=== PATIENT | female | born 1970 | race Caucasian/White ===

== ENCOUNTER 2020-02-15 20:50 | Inpatient (IN) ==
[2020-02-15] MEDS ORDERED: KETOROLAC TROMETHAMINE 15 MG/ML VIAL IV STA (22:01)
[2020-02-15] MEDS ORDERED: SODIUM CHLORIDE 0.9% 1000ML 1,000 ML IV ONE (22:01)
[2020-02-15 22:48] LABS: Appearance Urine Cloudy (Clear); Bacteria Urine Automated Negative (Negative); Bilirubin Urine Negative (Negative); Blood Urine 3+ (Negative); Color Urine Orange; Epithelial Cell Urine Auto >30 /lpf (0-5); Glucose Urine UA 3+ (Negative); Ketones Urine Negative (Negative); Leukocyte Esterase Urine Trace (Negative); Nitrite Urine Negative (Negative); Protein Urine 1+ (Negative); RBC Urine Automated >30 /hpf (0-4); Specific Gravity Urine 1.022 (1.000-1.030); Urobilinogen Urine Negative (Negative); pH Urine 6.5 (4.5-7.5)
[2020-02-15 22:51] LABS: Basophils # (auto) 0.05 K/uL (0-0.2); Basophils % (auto) 0.6 %; Eosinophils # (auto) 0.07 K/uL (0-0.5); Eosinophils % (auto) 0.8 %; Hematocrit (blood only) 41.1 % (37-47); Hemoglobin 13.3 g/dL (12.0-16.0); Immature Granulocytes # (auto) 0.04 K/uL (0.00-0.02); Immature Granulocytes % (auto) 0.5 %; Lymphocytes # (auto) 1.41 K/uL (1.2-3.4); Lymphocytes % (auto) 16.6 %; Mean Corpuscular Hemoglobin 29.2 pg (25-34); Mean Corpuscular Hgb Conc 32.4 g/dL (32-36); Mean Corpuscular Volume 90.3 fL (80-100); Mean Platelet Volume 12.2 fL (7.4-10.4); Monocytes # (auto) 0.43 K/uL (0.11-0.59); Monocytes % (auto) 5.1 %; Neutrophils # (auto) 6.51 K/uL (1.4-6.5); Neutrophils % (auto) 76.4 %; Nucleated RBC # (auto) 0.02 K/uL (0-0); Nucleated RBC % (auto) 0.2 %; Platelet Count 188 K/uL (130-400); RDW Coefficient of Variation 14.2 % (11.5-14.5); Red Blood Count 4.55 M/uL (4.2-5.4); White Blood Count 8.51 K/uL (4.8-10.8)
[2020-02-15 22:52] LABS: Pregnancy Test, Urine Negative (Negative)
[2020-02-15 23:14] LABS: Alanine Aminotransferase 28 U/L (12-78); Albumin Globulin Ratio 0.9 (0.9-2); Albumin Level 3.9 gm/dl (3.4-5.0); Alkaline Phosphatase 54 U/L (45-117); Aspartate Aminotransferase 12 U/L (15-37); BUN Creatinine Ratio 24.1 (10-20); Bilirubin,Total 0.2 mg/dl (0.2-1); Blood Urea Nitrogen 25 mg/dl (7-18); Calcium 9.7 mg/dl (8.5-10.1); Carbon Dioxide 20 mmol/L (21-32); Chloride 103 mmol/L (98-107); Est GFR (African American) 72.2; Est GFR (Non-African American) 62.3; Globulin 4.2 gm/dl (2.5-4.0); Glucose 329 mg/dl (70-99); Lipase 218 U/L (73-393); Potassium 4.1 mmol/L (3.5-5.1); Sodium 133 mmol/L (136-145); Total Protein 8.1 gm/dl (6.4-8.2)
[2020-02-15 23:24] LABS: Beta-Hydroxybutyrate 1.76 mg/dl (0.2-2.81)
[2020-02-16] MEDS ORDERED: POLYETHYLENE (MIRALAX) 17 GM PACK PO PRN (03:16)
[2020-02-16] MEDS ORDERED: HYDROmorphone INJ 0.5 MG/0.5 ML SYR IV PRN (03:22)
[2020-02-16] MEDS ORDERED: ACETAMINOPHEN 325 MG TAB PO PRN (03:22)
[2020-02-16] MEDS ORDERED: PATIENT'S HEIGHT AND/OR WEIGHT NEEDED SCH (03:30)
[2020-02-16] MEDS ORDERED: CARBOHYDRATES FOR HYPOGLYCEMIA PO PRN (03:30)
[2020-02-16] MEDS ORDERED: GLUCOSE 10 TABS/TUBE PO PRN (03:30)
[2020-02-16] MEDS ORDERED: GLUCOSE 40% GEL 15 GM TUBE PO PRN (03:30)
[2020-02-16] MEDS ORDERED: GLUCAGON FOR INJ 1 MG VIAL SQ PRN (03:30)
[2020-02-16] MEDS ORDERED: DEXTROSE 50% 50 ML SYRINGE IV PRN (03:30)
[2020-02-16] MEDS ORDERED: Nursing to Pharmacy Communication ONE ×3 (03:41→15:20)
[2020-02-16] MEDS: SODIUM CHLORIDE 0.9% 1000ML 1,000 ML IV SCH ×3 (03:51→20:11)
[2020-02-16] MEDS ORDERED: cloNIDine HCL 0.1 MG TAB PO PRN (03:53)
[2020-02-16] MEDS: cefTRIAXone SODIUM 1,000 MG in DEXTROSE 5% 50 ML IV SCH (03:58)
--- NOTE | 2020-02-16 05:00 | History and Physical Report ---
DATE OF ADMISSION: 02/16/2020 CHIEF COMPLAINT: Right flank and groin pain. HISTORY OF PRESENT ILLNESS: This is a 49-year-old female with past medical history significant for muscular dystrophy, wheelchair bound, hyperlipidemia, diabetes, history of palpitations, history of kidney stones, anxiety, who presents with right flank pain. The pain started yesterday, but after dinnertime it got worse, and had some blood clots in the urine, which prompted her to come to the ER. She is also having lately some low-grade temperatures. Denies any nausea, vomiting. No cough, no chest pain, no shortness of breath, no headache, no blurred vision, no earache. Has some runny nose from allergies. No sore throat, no difficulty swallowing. No diarrhea or constipation. Currently, resting comfortable and hemodynamically stable. ALLERGIES: METFORMIN AND SULFA ANTIBIOTICS. PAST MEDICAL HISTORY: As mentioned above. PAST SURGICAL HISTORY: Colonoscopy, lithotripsy, muscle biopsy, spinal fusion surgery, upper endoscopy. MEDICATIONS: The patient is on amitriptyline 10 mg p.o. daily, atorvastatin 10 mg p.o. daily, cetirizine 10 mg p.o. daily, dicyclomine 10 mg p.o. a.c. and at bedtime, Lomotil 1 tablet p.o. q.i.d. p.r.n., fenofibrate 160 mg p.o. daily, Flonase 2 sprays intranasally daily, glipizide 5 mg p.o. b.i.d., Vitron-C 1 tablet p.o. b.i.d., lisinopril 5 mg p.o. daily, omega fish oil 1 capsule daily, MiraLax 17 g p.o. daily p.r.n., Januvia 100 mg p.o. daily. FAMILY HISTORY: Significant for father had cancer, heart disorder, hypertension; mother has hypertension, heart disorder, endocrine disorder. SOCIAL HISTORY: No smoking. Alcohol occasionally. No drug use. REVIEW OF SYSTEMS: As per HPI. Rest of the review of systems negative. PHYSICAL EXAMINATION: GENERAL: The patient is of moderate build, not in acute distress. VITAL SIGNS: Temperature 37.1, pulse 114, respiratory rate 18, blood pressure 171/99, and oxygen 96% on room air. HEENT: No pallor, no icterus. Pupils equal, round, reactive to light. NECK: Supple. No neck masses. CARDIOVASCULAR: S1, S2 heard. Tachycardia. No murmurs. RESPIRATORY SYSTEM: Normal AP diameter. No accessory muscle use. No wheezing. ABDOMEN: Soft, bowel sounds present. Mild right lower quadrant tenderness. No guarding, no rigidity. No distention. CENTRAL NERVOUS SYSTEM: Alert and oriented x3. Obeys simple commands. EXTREMITIES: No edema, no erythema. LABORATORY DATA: WBC 8.5, hemoglobin 13.3, hematocrit 41.3, platelets 188. Sodium 133, potassium 4.1, chloride 103, bicarbonate 20, BUN 25, creatinine 1.05, serum glucose 329, calcium 9.7, total bilirubin 0.2, AST 12, ALT 28, alkaline phosphatase 54, lipase 218, beta hydroxybutyric acid 1.7. Urinalysis, positive for +3 blood, glucose, +2 leukocyte esterase. Urine test negative. IMAGING DATA: CT of abdomen and pelvis, preliminary report shows a 7 x 4 mm stone in the right distal ureter with moderate obstructive changes, bilateral nephrolithiasis, cholelithiasis, question of abnormal thickening in the anal region and perineum with fungating mass lesions and surrounding infiltration. ASSESSMENT AND PLAN: This is a 49-year-old female who presents with right flank pain and found to have kidney stone. 1. Right renal colic, a 7 x 4 mm stone in the right distal ureter with moderate hydronephrosis, bilateral nephrolithiasis, history of kidney stones in the past. Possible urinary tract infection. We will follow the cultures. Placed on IV Rocephin, IV fluids, n.p.o., IV Dilaudid p.r.n., IV Zofran p.r.n., and consult urology in a.m. for further recommendations. 2. Questionable fungating mass at the anal region. As per the ER physician, rectal exam was okay. We will follow the final CAT scan report and based on the results, we will consult GI. 3. Diabetes. Hold home p.o. medications. Placed on Lantus insulin sliding scale. Follow the blood sugars, follow HbA1c levels. 4. Muscular dystrophy, wheelchair bound, lives alone. Has caregivers. PT and OT prior to discharge. 5. Hyperlipidemia, on statin. 6. Hypertension. Continue lisinopril. 7. Deep vein thrombosis prophylaxis, sequential compression devices for now. DISPOSITION: Admit to medical floor. Expect to discharge home and follow with the family doctor. Level 1 full code. MTDD
--- NOTE | 2020-02-16 05:06 | Emergency Department Note ---
History of Present Illness General Chief complaint: Kidney Stone Stated complaint: KIDNEY STONE PAIN Time Seen by Provider: 02/15/20 21:39 Source: patient Mode of arrival: ambulatory Limitations: no limitations History of Present Illness Maximum Pain Intensity: 10 This patient is a 49-year-old female with past medical history of type 2 diabetes and muscular dystrophy who presents to the emergency department for ev aluation of right-sided flank pain. Patient states that symptoms started 2 days ago with some dark urine. She states that that night, she noticed some blood in her urine. She states that the blood then resolved for a period of time. She took a urinalysis to her primary care provider yesterday but has not heard back the results. She states that tonight, she noticed some blood clots in her urine and developed pain in the right side. She states pain is similar to pain she has had with kidney stones in the past. She rates her discomfort a 5-6/10 at this time. She states that her pain has actually improved significantly over the past few hours. She has taken Tylenol for pain. She does report a history of kidney stones and has had lithotripsy in the past. She reports some slight nausea but no vomiting. She denies any fevers or changes in bowel movements. Home Medications Home Medications Medication Instructions Recorded Confirmed Type Benafiber 1 packet PO DAILY 02/15/20 02/15/20 History amitriptyline 10 mg PO DAILY 02/15/20 02/15/20 History atorvastatin 10 mg PO DAILY 02/15/20 02/15/20 History cetirizine [Zyrtec] 10 mg PO DAILY 02/15/20 02/15/20 History dicyclomine 10 mg PO ACHS 02/15/20 02/15/20 History diphenoxylate-atropine [Lomotil] 1 tab PO QID PRN 02/15/20 02/15/20 History fenofibrate 160 mg PO DAILY 02/15/20 02/15/20 History fluticasone propionate 2 spray INTRANASAL DAILY 02/15/20 02/15/20 History glipizide 5 mg PO BID 02/15/20 02/15/20 History iron,carbonyl-vitamin C [Vitron-C] 1 tab PO BID 02/15/20 02/15/20 History lisinopril 5 mg PO DAILY 02/15/20 02/15/20 History omega 5-[id number]-zwd-fish oil [Fish Oil] 1 cap PO DAILY 02/15/20 02/15/20 History polyethylene glycol 3350 [Miralax] 17 g PO DAILY PRN 02/15/20 02/15/20 History sitagliptin [Januvia] 100 mg PO DAILY 02/15/20 02/15/20 History Allergies Allergy/AdvReac Type Severity Reaction Status Date / Time Sulfa (Sulfonamide Allergy Intermediate ITCHY Verified 02/15/20 21:51 Antibiotics) RASH, FLU-LIKE SYMPTOMS metformin AdvReac Intermediate MODERATELY Verified 02/15/20 21:51 SEVERE NAUSEA Past Med/Surg History Medical History Hypertension Muscular dystrophy Type 2 diabetes mellitus Social History Preferred Language: Guatemalan Communication Ability: Effective Design Engineering Technician Required: No Beliefs That Will Affect Care: None Current Living Situation: Alone Other Information That Helps Us Care for You: No Feels Safe at Home: Yes Safety Concerns: Feels Safe At This Time Smoking Status: Never smoker Do You Dip or Chew Tobacco: No ; Second Hand Exposure: No ; Tobacco Cessation Education Requested by Patient: No Hx Alcohol Use: No Hx Substance Use: No Review of Systems A total of 10 systems reviewed and were otherwise negative Physical Exam Vital Signs Vital Signs - 24 hr 02/15/20 20:54 02/15/20 23:30 Temperature 37.4 C Temperature Source Oral Pulse Rate 105 H Pulse Rate [Apical] 102 H Respiratory Rate 18 18 Respiratory Effort / Characteristics Non-Labored Respiratory Depth Normal Blood Pressure 168/94 H Blood Pressure [Right Arm] 167/102 H Blood Pressure Mean 118 Blood Pressure Mean [Right Arm] 123 Pulse Oximetry 96 98 Oxygen Delivery Method Room Air Room Air Sepsis Recent Fever Within 48 Hours No Sepsis Action Taken by Nursing No Action Required VITALS: Vitals are noted on the nurse's note and reviewed by myself. GENERAL: This is a 49-year-old female, in no acute distress, sitting up in her wheelchair. SKIN: The skin was without rashes. EARS: External auditory canals clear, tympanic membranes pearly stokes without erythema or effusion bilaterally. EYES: Pupils equal round and reactive to light and accommodation. No scleral icterus. MOUTH: Mucous membranes moist. Tonsils are not enlarged. Pharynx without erythema or exudate. NECK: Supple without nuchal rigidity. No lymphadenopathy. HEART: Regular rate and rhythm without murmurs gallops or rubs. LUNGS: Clear to auscultation bilaterally without wheezes, rales or rhonchi. No retractions or accessory muscle use. ABDOMEN: Positive bowel sounds x 4. Soft, mild tenderness to palpation in the right lower quadrant. No guarding or rebound tenderness. RECTAL/: There is an abnormal mass/protrusion from the vagina, possibly prolapse. Several small external hemorrhoids noted. No tenderness on digital rectal exam. No palpable masses. Small amount of light brown heme-negative stool. NEURO: Patient was alert and oriented to person place and time. Course Consultations Consultation #1: [facility]. Gar[facility] Hospitalist Administered Medications Sodium Chloride (Nss 1000ml) 1,000 mls @ 125 mls/hr IV .Q8H NICOLE Stop: 03/17/20 03:29 Last Admin: 02/16/20 03:51 Dose: 125 mls/hr Documented by: [id number] Ceftriaxone Sodium 1,000 mg/ (Dextrose) 50 mls @ 100 mls/hr IV Q24H NICOLE Stop: 02/21/20 03:59 Last Infusion: 02/16/20 04:28 Dose: 0 mls/hr Documented by: [id number] Admin: 02/16/20 03:58 Dose: 100 mls/hr Documented by: [id number] Insulin Aspart (Novolog Flexpen) 0 units SC Q6 NICOLE Stop: 03/17/20 05:59 Last Admin: 02/16/20 05:34 Dose: 1 units Documented by: [id number] Cosigned by: [id number] Discontinued Medications Sodium Chloride (Nss 1000ml) 1,000 mls @ 999 mls/hr IV .Q1H1M ONE Stop: 02/15/20 23:01 Last Infusion: 02/16/20 00:32 Dose: 0 mls/hr Documented by: [id number] Admin: 02/15/20 23:29 Dose: 999 mls/hr Documented by: [id number] Ketorolac Tromethamine (Toradol) 15 mg IV NOW STA Stop: 02/15/20 22:02 Last Admin: 02/15/20 23:29 Dose: 15 mg Documented by: [id number] Miscellaneous (Patient's Height And/Or Weight Needed) 1 ea N/A Q2H NICOLE Stop: 03/17/20 03:29 Last Admin: 02/16/20 04:41 Dose: Not Given Documented by: [id number] Medical Decision Making Differential Diagnosis Differential diagnosis includes renal calculus, pyelonephritis, musculoskeletal pain, ruptured AAA, aortic dissection, diverticulitis, perforated viscus, bowel obstruction, biliary pathology, pancreatitis, PE, pneumonia, pneumothorax, trauma, herpes zoster, malignancy, among others. Home Medications Current Medication List: was personally reviewed by me Laboratory Data Attestation: I reviewed the patient's lab results. Result diagrams: 02/15/20 22:42 02/15/20 22:42 Lab Results 02/15/20 02/15/20 02/15/20 Range/Units 22:30 22:30 22:42 WBC 8.51 (4.8-10.8) K/uL RBC 4.55 (4.2-5.4) M/uL Hgb 13.3 (12.0-16.0) g/dL Hct 41.1 (37-47) % MCV 90.3 (80-100) fL MCH 29.2 (25-34) pg MCHC 32.4 (32-36) g/dL RDW Std Deviation 47.0 H (36.4-46.3) fL RDW Coeff of Latesha 14.2 (11.5-14.5) % Plt Count 188 (130-400) K/uL MPV 12.2 H (7.4-10.4) fL Immature Gran % (Auto) 0.5 % Neut % (Auto) 76.4 % Lymph % (Auto) 16.6 % [place] % (Auto) 5.1 % Eos % (Auto) 0.8 % Baso % (Auto) 0.6 % Immature Gran # (Auto) 0.04 H (0.00-0.02) K/uL Neut # (Auto) 6.51 H (1.4-6.5) K/uL Lymph # (Auto) 1.41 (1.2-3.4) K/uL [place] # (Auto) 0.43 (0.11-0.59) K/uL Eos # (Auto) 0.07 (0-0.5) K/uL Baso # (Auto) 0.05 (0-0.2) K/uL Absolute Nucleated RBC 0.02 H (0-0) K/uL Nucleated RBC % (auto) 0.2 % Sodium (136-145) mmol/L Potassium (3.5-5.1) mmol/L Chloride (98-107) mmol/L Carbon Dioxide (21-32) mmol/L Anion Gap (3-11) BUN (7-18) mg/dl Creatinine (0.6-1.2) mg/dl Est Cr Clr Drug Dosing Est GFR ( Amer) Est GFR (Non-Af Amer) BUN/Creatinine Ratio (10-20) Glucose (70-99) mg/dl Calcium (8.5-10.1) mg/dl Total Bilirubin (0.2-1) mg/dl AST (15-37) U/L ALT (12-78) U/L Alkaline Phosphatase (45-117) U/L Total Protein (6.4-8.2) gm/dl Albumin (3.4-5.0) gm/dl Globulin (2.5-4.0) gm/dl Albumin/Globulin Ratio (0.9-2) Lipase (73-393) U/L Beta-Hydroxybutyric Acd (0.2-2.81) mg/dl Urine Color [place] Urine Appearance Cloudy A (Clear) Urine pH 6.5 (4.5-7.5) Ur Specific [place] 1.022 (1.000-1.030) Urine Protein 1+ H (Negative) Urine Glucose (UA) 3+ H (Negative) Urine Ketones Negative (Negative) Urine Blood 3+ H (Negative) Urine Nitrite Negative (Negative) Urine Bilirubin Negative (Negative) Urine Urobilinogen Negative (Negative) Ur Leukocyte Esterase Trace H (Negative) Urine WBC (Auto) 5-10 H (0-5) /hpf Urine RBC (Auto) >30 H (0-4) /hpf U Hyaline Cast (Auto) 1-5 (0-5) /lpf U Epithel Cells (Auto) >30 H (0-5) /lpf Urine Bacteria (Auto) Negative (Negative) Urine Test Negative (Negative) 02/15/20 Range/Units 22:42 WBC (4.8-10.8) K/uL RBC (4.2-5.4) M/uL Hgb (12.0-16.0) g/dL Hct (37-47) % MCV (80-100) fL MCH (25-34) pg MCHC (32-36) g/dL RDW Std Deviation (36.4-46.3) fL RDW Coeff of Latesha (11.5-14.5) % Plt Count (130-400) K/uL MPV (7.4-10.4) fL Immature Gran % (Auto) % Neut % (Auto) % Lymph % (Auto) % [place] % (Auto) % Eos % (Auto) % Baso % (Auto) % Immature Gran # (Auto) (0.00-0.02) K/uL Neut # (Auto) (1.4-6.5) K/uL Lymph # (Auto) (1.2-3.4) K/uL [place] # (Auto) (0.11-0.59) K/uL Eos # (Auto) (0-0.5) K/uL Baso # (Auto) (0-0.2) K/uL Absolute Nucleated RBC (0-0) K/uL Nucleated RBC % (auto) % Sodium 133 L (136-145) mmol/L Potassium 4.1 (3.5-5.1) mmol/L Chloride 103 (98-107) mmol/L Carbon Dioxide 20 L (21-32) mmol/L Anion Gap 10.0 (3-11) BUN 25 H (7-18) mg/dl Creatinine 1.05 (0.6-1.2) mg/dl Est Cr Clr Drug Dosing Not Reportable Est GFR ( Amer) 72.2 Est GFR (Non-Af Amer) 62.3 BUN/Creatinine Ratio 24.1 H (10-20) Glucose 329 H* (70-99) mg/dl Calcium 9.7 (8.5-10.1) mg/dl Total Bilirubin 0.2 (0.2-1) mg/dl AST 12 L (15-37) U/L ALT 28 (12-78) U/L Alkaline Phosphatase 54 (45-117) U/L Total Protein 8.1 (6.4-8.2) gm/dl Albumin 3.9 (3.4-5.0) gm/dl Globulin 4.2 H (2.5-4.0) gm/dl Albumin/Globulin Ratio 0.9 (0.9-2) Lipase 218 (73-393) U/L Beta-Hydroxybutyric Acd 1.76 (0.2-2.81) mg/dl Urine Color Urine Appearance (Clear) Urine pH (4.5-7.5) Ur Specific [place] (1.000-1.030) Urine Protein (Negative) Urine Glucose (UA) (Negative) Urine Ketones (Negative) Urine Blood (Negative) Urine Nitrite (Negative) Urine Bilirubin (Negative) Urine Urobilinogen (Negative) Ur Leukocyte Esterase (Negative) Urine WBC (Auto) (0-5) /hpf Urine RBC (Auto) (0-4) /hpf U Hyaline Cast (Auto) (0-5) /lpf U Epithel Cells (Auto) (0-5) /lpf Urine Bacteria (Auto) (Negative) Urine Test (Negative) Imaging Data Attestation: I personally reviewed and interpreted this imaging study as follows: Radiologist's Impression: CT ABDOMEN & PELVIS Without Contrast: 7 x 4 mm stone in the right distal ureter with a moderate obstructive changes. Bilateral nephrolithiasis. Cholelithiasis. Heterogeneous liver with geographic areas of fatty infiltration. No radiographic evidence of pancreatitis. No evidence of appendicitis, colitis or bowel obstruction Abnormal thickening in the anal region/perineum with fungating mass lesions and surrounding infiltration. Surgical changes related to the spine. Radiologist: Jarod Muse M.D. Blood Pressure Blood Pressure Findings: Elevated blood pressure Blood Pressure Disposition: further management by hospitalist ELLYN Carias Continuous equipment monitor phototypesetting: Order was placed for continuous equipment monitor phototypesetting. Patient was placed on the equipment monitor phototypesetting. Patient was noted to be in normal sinus rhythm at an initial rate of 105 bpm. The patient is a 49-year-old female who presents today complaining of right- sided flank pain. Labs revealed no leukocytosis or anemia. Kidney function within normal limits. Urinalysis positive for blood. Glucose elevated at 329. A CT scan of the abdomen/pelvis was performed and shows a right-sided ureteral stone. There was also an abnormal finding of a possible rectal/anal mass. On examination, this appears to be vaginal. The patient reports this has been ongoing for almost 10 years and this will certainly need to be evaluated by [facility]. I do feel the patient needs hospitalization for her kidney stone due to the size. She was agreeable with this. Case was discussed with the [facility]ist. Impression & Plan Calculus of right ureter Discharge Plan Visit Data *Final* Discharge Date/Time: 02/16/20 02:55 Chief Complaint: Kidney Stone Stated Complaint: KIDNEY STONE PAIN ED Provider: Richard Cummings ED Midlevel Provider: Anna oM Discharge Problem: Calculus of right ureter Patient Disposition: Admitted As Inpatient Discharge Instructions Interventions: ED Discharge Assessment Last Done: 02/16/20 02:55
[2020-02-16] MEDS: INSULIN ASPART 100 UNITS/ML 3 ML PEN SC SCH ×4 (05:34→20:56)
--- NOTE | 2020-02-16 06:53 | CT Scan Report ---
CT abd pelvis wo con CT DOSE: 1288.88 mGy.cm HISTORY: Flank pain. Hematuria. right flank/abdominal pain, hematuria TECHNIQUE: Multiaxial CT images of the abdomen and pelvis were performed without contrast. A dose lo wering technique was utilized adhering to the principles of ALARA. COMPARISON STUDY: 11/22/2009 FINDINGS: Lung bases are grossly clear. Liver spleen and pancreas are unremarkable. Several small gal lstones. Left kidney demonstrates several nonobstructing left lower pole calcifications. Right kidney demonstrates moderate right hydroureteronephrosis. Multiple calcifications are present w ithin the right kidney collecting system as well as right renal pelvis. There is also a distal right ureteral calculus measuring 7 x 5 mm. Bowel pattern is nonobstructive. Bladder is midline. There is a moderate degree of rectal prolapse. IMPRESSION: 1. Obstructing calculus distal right ureter. 2. Multiple additional nonobstructing calcifications upper right renal collecting system. 3. Gallstones. 4. Several nonobstructing lower pole left renal calcifications. 5. Rectal prolapse. ACT 112: Negative or not required by law. The above report was generated using voice recognition software. It may contain grammatical, syntax or spelling errors. Electronically signed by: Kiran Sumner M.D. 02/16/2020 6:52 AM
[2020-02-16] MEDS ORDERED: INSULIN ASPART 100 UNITS/ML 3 ML PEN SC SCH (07:30)
[2020-02-16] MEDS ORDERED: NON-FORMULARY MEDICATION (Iron,Carbonyl-Vitamin C [Vitron-C] 1 TAB) PO SCH (09:00)
[2020-02-16] MEDS ORDERED: CETIRIZINE HCL 10 MG TABLET PO SCH ×2 (09:00→17:00)
--- NOTE | 2020-02-16 09:17 | Hospitalist Progress Note ---
Date of Service February 16, 2020 Assessment & Plan (1) Calculus of right ureter: This is a 49-year-old female who presents with right flank pain and found to have kidney stone. -Right renal colic, a 7 x 4 mm stone in the right distal ureter with moderate hydronephrosis, bilateral nephrolithiasis, history of kidney stones in the past. Possible urinary tract infection. We will follow the cultures. Placed on IV Rocephin, IV fluids, n.p.o., IV Dilaudid p.r.n., IV Zofran p.r.n., and consult urology pending History of Rectal prolapse -history of rectal prolapse as per patient -Questionable fungating mass at the anal region. As per the ER physician, rectal exam was okay. -Gastroenterology service consulted Type 2 diabetes mellitus without termination clerk current use of insulin -patient thinks outpatient HbA1c around 7.5 -does not take insulin at home, she is on Januvia and sitagliptin at home -Hold home p.o. medications. Placed on Lantus insulin sliding scale. Follow the blood sugars, follow HbA1c levels. Hyperlipidemia -on statin. Hypertension -Continue lisinopril. Muscular dystrophy - wheelchair bound, lives alone. Has caregivers. PT and OT prior to discharge. Deep vein thrombosis prophylaxis, sequential compression devices for now. DISPOSITION: Admit to medical floor. Expect to discharge home and follow with the family doctor. Level 1 full code. Admission and Anticipated Discharge Date Admission Date: February 16, 2020 Subjective no acute distress. no shortness of breath. breathing on room air. no acute chest pain. right flank pain improving so far on IV fluids. chronically non ambulatory, cannot raise legs on exam and this is chronic as per patient Review of Systems Review of Systems: All systems reviewed & are unremarkable except as noted in Subjective Physical Exam Constitutional: WD/WN, vitals as above Eyes: PERRL, conjunctivae normal, anicteric sclerae ENMT: external ear and nose normal, oropharynx normal Neck: normal visual inspection Respiratory: normal respiratory effort, lungs clear to auscultation Cardiovascular: Rate/Rhythm: regular rate Gastrointestinal (Abdomen): normal bowel sounds, soft, nontender, no hepatosplenomegaly Musculoskeletal: Head/Neck/Chest: normocephalic Neurologic: PERRL, EOMI, accommodation nl, no face palsy, no dysarthria Psychiatric: A+Ox3, euthymic affect chronically non ambulatory, cannot raise legs on exam and this is chronic as per patient Results & Data Results & Data ([facility]) Vital Signs (Past 12 Hours) Vital Signs Temp Pulse Pulse Resp BP Pulse Ox 02/16/20 07:54 37.1 C 106 H 18 142/93 H 96 02/16/20 03:02 37.1 C 114 H 18 171/99 H 96 02/15/20 23:30 102 H 18 167/102 H 98
[2020-02-16] MEDS: FLUTICASONE PROPIONATE NA SPR 16 GM BTL SCH (09:47)
[2020-02-16] MEDS: ATORVASTATIN 10 MG TAB PO SCH (09:49)
[2020-02-16] MEDS: FENOFIBRATE NANOCRYSTALLIZED 145 MG TABLET PO SCH (09:50)
[2020-02-16] MEDS: lisinopriL 5 MG TAB PO SCH (09:50)
--- NOTE | 2020-02-16 09:53 | XRay Report ---
XR KUB/Abdomen 1 view CLINICAL HISTORY: kidney stone nephrocalcinosis COMPARISON STUDY: No previous studies for comparison. FINDINGS: Limited study due to patient body habitus. Nonobstructive bowel pattern. Several calcifications overlying lower pole right kidney. Evaluation of soft tissue pelvis is nondiagnostic. IMPRESSION: Nondiagnostic study due to patient body habitus considerations. Calcifications right kid marcos. ACT 112: Negative or not required by law. The above report was generated using voice recognition software. It may contain grammatical, syntax or spelling errors. Electronically signed by: Kiran Sumner M.D. 02/16/2020 9:52 AM
[2020-02-16] MEDS: INSULIN GLARGINE SOLOSTAR 100 UNITS/ML 3 ML PEN SC SCH (09:56)
--- NOTE | 2020-02-16 11:07 | Urology Consultation ---
Date of Consultation February 16, 2020 Assessment & Plan (1) Calculus of right ureter: Assessment Nephrolithiasis with a distal right ureteral calculus Currently patient is afebrile and pain-free Discussed options including #1 trial of passage #2 ureteroscopy laser lithotripsy and stent #3 extracorporal shockwave lithotripsy Patient does understand that the ESWL would have to wait until at least next Thursday She would like to see if she can pass the stone especially since she did not tolerate a stent well in the past Since she is afebrile and not having pain we can give her a chance to see if she can pass the stone on her own She does know if she gets a fever or shaking chills she would need to have a stent placed emergently. History of Present Illness Attending Physician: Shashank Ely MD History of Present Illness Patient is a 49-year-old white female with past medical history significant for muscular dystrophy. She is currently wheelchair-bound. She developed a right flank pain yesterday and some hematuria. She came to the emergency room CT showed stones in the right kidney as well is a 6 mm right ureterovesical junction stone. Currently she said she is pain-free. She is had no fevers or chills nausea or vomiting. She has passed multiple stones throughout her life. She has had lithotripsy x1 years ago This was accompanied with a ureteral stent which she said she did not tolerate very well Allergies Allergy/AdvReac Type Severity Reaction Status Date / Time Sulfa (Sulfonamide Allergy Intermediate ITCHY Verified 02/15/20 21:51 Antibiotics) RASH, FLU-LIKE SYMPTOMS metformin AdvReac Intermediate MODERATELY Verified 02/15/20 21:51 SEVERE NAUSEA Home Medications Home Medications Medication Instructions Recorded Confirmed Type Benafiber 1 packet PO DAILY 02/15/20 02/15/20 History amitriptyline 10 mg PO DAILY 02/15/20 02/15/20 History atorvastatin 10 mg PO DAILY 02/15/20 02/15/20 History cetirizine [Zyrtec] 10 mg PO DAILY 02/15/20 02/15/20 History dicyclomine 10 mg PO ACHS 02/15/20 02/15/20 History diphenoxylate-atropine [Lomotil] 1 tab PO QID PRN 02/15/20 02/15/20 History fenofibrate 160 mg PO DAILY 02/15/20 02/15/20 History fluticasone propionate 2 spray INTRANASAL DAILY 02/15/20 02/15/20 History glipizide 5 mg PO BID 02/15/20 02/15/20 History iron,carbonyl-vitamin C [Vitron-C] 1 tab PO BID 02/15/20 02/15/20 History lisinopril 5 mg PO DAILY 02/15/20 02/15/20 History omega 5-odc-ntz-fish oil [Fish Oil] 1 cap PO DAILY 02/15/20 02/15/20 History polyethylene glycol 3350 [Miralax] 17 g PO DAILY PRN 02/15/20 02/15/20 History sitagliptin [Januvia] 100 mg PO DAILY 02/15/20 02/15/20 History Patient History Medical History Hypertension Muscular dystrophy Type 2 diabetes mellitus Social History Preferred Language: Thai Communication Ability: Effective Snack Bar Cook Required: No Beliefs That Will Affect Care: None marital status: Single Current Living Situation: Alone Other Information That Helps Us Care for You: No Feels Safe at Home: Yes Safety Concerns: Feels Safe At This Time Smoking Status: Never smoker Do You Dip or Chew Tobacco: No ; Second Hand Exposure: No ; Tobacco Cessation Education Requested by Patient: No Hx Alcohol Use: No Hx Substance Use: No Review of Systems Review of Systems: Review of systems reviewed from her admitting history and physical Physical Exam Constitutional: well nourished, + physical limitations (Patient wheelchair- bound secondary to muscular dystrophy) and healthy appearing Eyes: PERRL, conjunctivae normal, anicteric sclerae Respiratory: normal respiratory effort and able to speak in complete sentences Gastrointestinal (Abdomen): Inspection/Auscultation: abdomen normal to inspection and normal bowel sounds Musculoskeletal: Extremities: + limited ROM of extremities, + muscle atrophy and + leg foreshortened Skin: no rashes, warm and dry Results & Data Vital Signs (Past 12 Hours) Vital Signs Temp Pulse Pulse Resp BP Pulse Ox 02/16/20 07:54 37.1 C 106 H 18 142/93 H 96 02/16/20 03:02 37.1 C 114 H 18 171/99 H 96 02/15/20 23:30 102 H 18 167/102 H 98 PG Care Time/CCT Total # of Minutes Spent Total Time Spent with Patient: Total time spent is greater than 50% in coordination of care (as documented) at patient's floor/unit and/or counseling patient: Coding Level of Care Code 39764 Inpt Consult Level 3 Diagnoses Calculus of right ureter N20.1
--- NOTE | 2020-02-16 13:15 | XRay Report ---
XR KUB/Abdomen 1 view CLINICAL HISTORY: stones nephrocalcinosis COMPARISON STUDY: 02/15/2019 FINDINGS: Unchanged calcifications overlying the right kidney. Improved visibility of the soft tissue pelvis. Several faint calcifications are present but this is considered to be of limited diagnostic utility. The possibility of a calculus of the distal right ureter is raised pelvis may also represent bowel content. IMPRESSION: 1. Slightly improved visibility with unchanged right renal nephrocalcinosis. 2. Fecal material versus low density calcification distal right ureter ACT 112: Negative or not required by law. The above report was generated using voice recognition software. It may contain grammatical, syntax or spelling errors. Electronically signed by: Kiran Sumner M.D. 02/16/2020 1:13 PM
[2020-02-16] MEDS ORDERED: AMITRIPTYLINE HCL 10 MG TAB PO SCH (21:00)
[2020-02-17] MEDS: cefTRIAXone SODIUM 1,000 MG in DEXTROSE 5% 50 ML IV SCH (04:22)
[2020-02-17] MEDS: SODIUM CHLORIDE 0.9% 1000ML 1,000 ML IV SCH (04:22)
[2020-02-17 06:23] LABS: Basophils # (auto) 0.04 K/uL (0-0.2); Basophils % (auto) 0.6 %; Eosinophils # (auto) 0.24 K/uL (0-0.5); Eosinophils % (auto) 3.5 %; Hematocrit (blood only) 33.6 % (37-47); Hemoglobin 10.8 g/dL (12.0-16.0); Immature Granulocytes # (auto) 0.01 K/uL (0.00-0.02); Immature Granulocytes % (auto) 0.1 %; Lymphocytes # (auto) 2.66 K/uL (1.2-3.4); Lymphocytes % (auto) 38.4 %; Mean Corpuscular Hemoglobin 29.1 pg (25-34); Mean Corpuscular Hgb Conc 32.1 g/dL (32-36); Mean Corpuscular Volume 90.6 fL (80-100); Mean Platelet Volume 11.6 fL (7.4-10.4); Monocytes # (auto) 0.47 K/uL (0.11-0.59); Monocytes % (auto) 6.8 %; Neutrophils # (auto) 3.51 K/uL (1.4-6.5); Neutrophils % (auto) 50.6 %; Platelet Count 156 K/uL (130-400); RDW Coefficient of Variation 14.3 % (11.5-14.5); RDW Standard Deviation 47.6 fL (36.4-46.3); Red Blood Count 3.71 M/uL (4.2-5.4); White Blood Count 6.93 K/uL (4.8-10.8)
[2020-02-17 06:55] LABS: Estimated Average Glucose 169 mg/dl; Hemoglobin A1C 7.5 % (4.5-5.6)
[2020-02-17 07:08] LABS: Alanine Aminotransferase 21 U/L (12-78); Albumin Globulin Ratio 0.9 (0.9-2); Albumin Level 3.1 gm/dl (3.4-5.0); Alkaline Phosphatase 33 U/L (45-117); Aspartate Aminotransferase 9 U/L (15-37); Bilirubin,Total 0.2 mg/dl (0.2-1); Blood Urea Nitrogen 12 mg/dl (7-18); Calcium 7.9 mg/dl (8.5-10.1); Carbon Dioxide 22 mmol/L (21-32); Chloride 113 mmol/L (98-107); Creatinine Clr Calc Pharmacy 360.1 ml/min; Est GFR (African American) > 150.0; Est GFR (Non-African American) > 150.0; Globulin 3.4 gm/dl (2.5-4.0); Glucose 129 mg/dl (70-99); Potassium 3.5 mmol/L (3.5-5.1); Sodium 141 mmol/L (136-145); Total Protein 6.5 gm/dl (6.4-8.2)
[2020-02-17] MEDS ORDERED: POTASSIUM CHLORIDE / WTR 10 MEQ/100 ML PLCT IV ONE (07:10)
[2020-02-17] MEDS ORDERED: POTASSIUM CHLORIDE 20 MEQ TABCR PO STA (07:10)
[2020-02-17] MEDS ORDERED: KETOROLAC TROMETHAMINE 15 MG/ML VIAL IV ONE (07:44)
[2020-02-17] MEDS ORDERED: OXYCODONE HCL IR 5 MG TAB (IMMEDIATE RELEASE) PO PRN (08:44)
[2020-02-17] MEDS ORDERED: HYDROmorphone INJ 0.5 MG/0.5 ML SYR IV PRN (08:44)
[2020-02-17] MEDS ORDERED: ACETAMINOPHEN 325 MG TAB PO PRN (08:44)
[2020-02-17] MEDS ORDERED: KETOROLAC TROMETHAMINE 15 MG/ML VIAL IV PRN (08:45)
[2020-02-17] MEDS: FLUTICASONE PROPIONATE NA SPR 16 GM BTL SCH (08:54)
[2020-02-17] MEDS: ATORVASTATIN 10 MG TAB PO SCH (08:56)
[2020-02-17] MEDS: lisinopriL 5 MG TAB PO SCH (08:56)
--- NOTE | 2020-02-17 08:56 | Urology Progress Note ---
Date of Service February 17, 2020 Assessment & Plan (1) Calculus of right ureter: Right ureteral calculus, right renal calculi Currently minimally symptomatic We have discussed options of intervention today in the form of cystoscopy and stent placement versus delayed intervention as an outpatient for definitive stone treatmenttreating both ureteral and renal stones Realistically, she will likely require several procedures given the stone burden within the right kidney She greatly prefers the outpatient option I think it is reasonable to discharge her home this morning if she remains comfortable We will arrange for outpatient definitive therapy Subjective Was pain-free throughout the day yesterday She does have some discomfort in the right lower quadrant today Onset of the pain this morning came with shifting positions She has not yet seen a stone pass She reports the pain she is currently experiencing is extremely tolerable Review of Systems Review of Systems: All systems reviewed & are unremarkable except as noted in HPI & below Physical Exam Physical Exam: AFVSS No apparent distresscomfortable appearing Short stature No respiratory distress Non-tachycardic Abdomen soft No significant CVA tenderness No suprapubic tenderness Results & Data Vital Signs (Past 12 Hours) Vital Signs Temp Pulse Resp BP Pulse Ox 02/17/20 07:18 37.2 C 78 18 134/84 96 02/16/20 23:10 36.8 C 93 H 16 123/83 97 PG Care Time/CCT Total # of Minutes Spent Total Time Spent with Patient: Total time spent is greater than 50% in coordination of care (as documented) at patient's floor/unit and/or counseling patient: Coding Level of Care Code 53698 Subseq Hosp Care Lvl 2 Diagnoses Calculus of right ureter N20.1
[2020-02-17] MEDS: FENOFIBRATE NANOCRYSTALLIZED 145 MG TABLET PO SCH (08:58)
[2020-02-17] MEDS: INSULIN GLARGINE SOLOSTAR 100 UNITS/ML 3 ML PEN SC SCH (08:59)
[2020-02-17] MEDS: INSULIN ASPART 100 UNITS/ML 3 ML PEN SC SCH ×2 (09:01→13:26)
--- NOTE | 2020-02-17 12:01 | Hospitalist Progress Note ---
Date of Service February 17, 2020 Assessment & Plan (1) Calculus of right ureter: This is a 49-year-old female who presents with right flank pain and found to have kidney stone. -Right renal colic, a 7 x 4 mm stone in the right distal ureter with moderate hydronephrosis, bilateral nephrolithiasis, history of kidney stones in the past -empirically was given ceftriaxone but no evidence of urine infection on urine analysis -trial of IV fluids with inpatient pain medications were started -[facility] urology service was consulted and deferred urology procedure as outpatient and recommended hospital discharge. Patient agrees to hospital discharge after options discussed. Discharge to home under care of her mother on 02/17/2020 -Patient will need to confirm with [facility] urology clinic for definitive stone treatmenttreating both ureteral and renal stones ([address] [address] Thursday through , from 8:00 am to 5:00 pm Thursday, 8:00 am to 2:00 pm) -[facility] appointment line for primary care doctor appointment also called and informed that patient will need to be scheduled for post-hospital discharge follow up -upcoming scheduled appointments 03/12/2020 4:30 PM Provider [facility] Department Radiology [facility] -discharge prescription of acetaminophen 325 mg every 6 hours as needed for mild pain or fever; ibuprofren 200 mg every 6 hours as needed for moderate pain, oxycodone 5 mg every 6 hours as needed for severe pain (16 pills prescribed total) sent electronically to [facility] [address] [place] [phone] Rectal prolapse (chronic) -history of rectal prolapse as per patient -As per the ER physician, rectal exam was okay. -final admission CT abdomen impression read as rectal prolapse -no acute issues with bowel movements, no acute rectal discomforts, no further GI workup needed Hypertension -Continue lisinopril Type 2 diabetes mellitus without long-term current use of insulin -HbA1c is 7.5, does not take insulin at home, she is on Januvia and sitagliptin at home -sliding scale insulin given inpatient -patient may resume home oral diabetes medications on discharge Hyperlipidemia -on statin. Muscular dystrophy - wheelchair bound, lives alone. Has caregivers. Patient agrees to hospital discharge after options discussed. Discharge to home under care of her mother on 02/17/2020 Admission and Anticipated Discharge Date Admission Date: February 16, 2020 Subjective no vomiting. no abdomen pain. no chest pain. no shortness of breath. patient noted some more pedal edema and requested stopping of the IV fluids. tolerating flank discomforts but she feels uncomfortable in hospital bed [facility] urology service was consulted and deferred urology procedure as outpatient and recommended hospital discharge. Patient agrees to hospital discharge after options discussed. Discharge to home under care of her mother on 02/17/2020 Review of Systems Review of Systems: All systems reviewed & are unremarkable except as noted in Subjective Physical Exam Constitutional: WD/WN, vitals as above Eyes: PERRL, conjunctivae normal, anicteric sclerae ENMT: external ear and nose normal, oropharynx normal Neck: normal visual inspection Respiratory: normal respiratory effort, lungs clear to auscultation Cardiovascular: Rate/Rhythm: regular rate Gastrointestinal (Abdomen): normal bowel sounds, soft, nontender, no hepatosplenomegaly Musculoskeletal: Head/Neck/Chest: normocephalic Extremities: + foot abnormality (mild pedal edema bilaterally) Neurologic: PERRL, EOMI, accommodation nl, no face palsy, no dysarthria Psychiatric: A+Ox3, euthymic affect Results & Data Results & Data ([facility]) Vital Signs (Past 12 Hours) Vital Signs Temp Pulse Resp BP Pulse Ox 02/17/20 07:18 37.2 C 78 18 134/84 96
--- NOTE | 2020-02-17 12:11 | Discharge Summary ---
Date of Service February 17, 2020 Admission HPI Per Admitting Provider DATE OF ADMISSION: 02/16/2020 CHIEF COMPLAINT: Right flank and groin pain. HISTORY OF PRESENT ILLNESS: This is a 49-year-old female with past medical history significant for muscular dystrophy, wheelchair bound, hyperlipidemia, diabetes, history of palpitations, history of kidney stones, anxiety, who presents with right flank pain. The pain started yesterday, but after dinnertime it got worse, and had some blood clots in the urine, which prompted her to come to the ER. She is also having lately some low-grade temperatures. Denies any nausea, vomiting. No cough, no chest pain, no shortness of breath, no headache, no blurred vision, no earache. Has some runny nose from allergies. No sore throat, no difficulty swallowing. No diarrhea or constipation. Currently, resting comfortable and hemodynamically stable. Principal Diagnosis Calculus of right ureter Type 2 diabetes mellitus without long term care pharmacist current use of insulin Hypertension Rectal prolapse (chronic) Discharge Exam Constitutional WD/WN, vitals as above Eyes PERRL, conjunctivae normal, anicteric sclerae ENMT external ear and nose normal, oropharynx normal Neck normal visual inspection Respiratory normal respiratory effort, lungs clear to auscultation Cardiovascular Rate/Rhythm: regular rate Gastrointestinal (Abdomen) normal bowel sounds, soft, nontender, no hepatosplenomegaly Musculoskeletal Head/Neck/Chest: normocephalic Extremities: + foot abnormality (mild pedal edema bilaterally) Neurologic PERRL, EOMI, accommodation nl, no face palsy, no dysarthria Psychiatric A+Ox3, euthymic affect Discharge Data Allergies Allergy/AdvReac Type Severity Reaction Status Date / Time Sulfa (Sulfonamide Allergy Intermediate ITCHY Verified 02/15/20 21:51 Antibiotics) RASH, FLU-LIKE SYMPTOMS metformin AdvReac Intermediate MODERATELY Verified 02/15/20 21:51 SEVERE NAUSEA Consultations 02/16/20 01:46 ED Decision to Admit Stat 02/16/20 03:04 Consult Urology Routine Ordered Studies 02/15/20 22:01 CT abd pelvis wo con Urgent Hospital Course (1) Calculus of right ureter: This is a 49-year-old female who presents with right flank pain and found to have kidney stone. -Right renal colic, a 7 x 4 mm stone in the right distal ureter with moderate hydronephrosis, bilateral nephrolithiasis, history of kidney stones in the past -empirically was given ceftriaxone but no evidence of urine infection on urine analysis -trial of IV fluids with inpatient pain medications were started -[facility] urology service was consulted and deferred urology procedure as outpatient and recommended hospital discharge. Patient agrees to hospital discharge after options discussed. Discharge to home under care of her mother on 02/17/2020 -Patient will need to confirm with [facility] urology clinic for definitive stone treatmenttreating both ureteral and renal stones ([address] [place] [address] Thursday through , from 8:00 am to 5:00 pm Thursday, 8:00 am to 2:00 pm) -[facility] appointment line for primary care doctor appointment also called and informed that patient will need to be scheduled for post-hospital discharge follow up -upcoming scheduled appointments 03/12/2020 4:30 PM Provider THOMAS ECKLEY Department Radiology [facility] -discharge prescription of acetaminophen 325 mg every 6 hours as needed for mild pain or fever; ibuprofren 200 mg every 6 hours as needed for moderate pain, ox ycodone 5 mg every 6 hours as needed for severe pain (16 pills prescribed total) sent electronically to [facility] [address] [place] [phone] Rectal prolapse (chronic) -history of rectal prolapse as per patient -As per the ER physician, rectal exam was okay. -final admission CT abdomen impression read as rectal prolapse -no acute issues with bowel movements, no acute rectal discomforts, no further GI workup needed Hypertension -Continue lisinopril Type 2 diabetes mellitus without long term care pharmacist current use of insulin -HbA1c is 7.5, does not take insulin at home, she is on Januvia and sitagliptin at home -sliding scale insulin given inpatient -patient may resume home oral diabetes medications on discharge Hyperlipidemia -on statin. Muscular dystrophy - wheelchair bound, lives alone. Has caregivers. Patient agrees to hospital discharge after options discussed. Discharge to home under care of her mother on 02/17/2020 Total Time Total Time Spent Total Time Spent (In Minutes): 40 minutes Total Time Includes: Examination of the Patient, Discharge Planning, Medication Reconciliation and Communication With Other Providers Discharge Plan Discharge Items Patient Disposition: Home - Self-Care Reason For Visit: RT KIDNEY STONE Discharge Diagnosis: Calculus of right ureter Type 2 diabetes mellitus without care home current use of insulin Hypertension Rectal prolapse (chronic) Condition on Discharge: Good Activity: Resume your previous activity Non-emergency contact: Primary Care Provider and Urologist Call non-emergency contact if: you have any medication questions, your pain is concerning for you and you have a fever Follow-up/Referrals: Anayeli Tran MD [Primary Care Provider] - Diet: Carb Consistent or DM2 Addtl Attending Provider Instructions: Patient will need to confirm with [facility] urology clinic for definitive s tone treatmenttreating both ureteral and renal stones ([address] [address] Thursday through , from 8:00 am to 5:00 pm Thursday, 8:00 am to 2:00 pm) [facility] appointment line for primary care doctor appointment also called and informed that patient will need to be scheduled for post-hospital discharge follow up upcoming scheduled appointments 03/12/2020 4:30 PM Provider THOMAS ECKLEY Department Radiology [facility] discharge prescription of acetaminophen 325 mg every 6 hours as needed for mild pain or fever; ibuprofren 200 mg every 6 hours as needed for moderate pain, oxycodone 5 mg every 6 hours as needed for severe pain (16 pills prescribed total) sent electronically to [facility] [address] [place] [phone] Pending Studies at Discharge: No Stand-Alone Forms: My [facility], Smoking Cessation Medications and DC Order Prescriptions: New acetaminophen 325 mg tablet 325 mg PO Q6H PRN (Reason: mild pain or fever) 7 Days Qty: 28 RF: 0 ibuprofen 200 mg tablet 200 mg PO Q6H PRN (Reason: moderate pain) 7 Days Qty: 28 RF: 0 oxycodone 5 mg Tablet 5 mg PO Q6H PRN (Reason: severe pain) 4 Days Qty: 16 RF: 0 Continued cetirizine [Zyrtec] 10 mg Tablet 10 mg PO DAILY RF: 0 atorvastatin 10 mg tablet 10 mg PO DAILY RF: 0 diphenoxylate-atropine [Lomotil] 2.5-0.025 mg Tablet 1 tab PO QID PRN (Reason: Diarrhea) RF: 0 amitriptyline 10 mg tablet 10 mg PO DAILY RF: 0 lisinopril 5 mg tablet 5 mg PO DAILY RF: 0 polyethylene glycol 3350 [Miralax] 17 gram/dose Powder 17 g PO DAILY PRN (Reason: Constipation) RF: 0 fluticasone propionate 50 mcg/actuation spray,suspension 2 spray INTRANASAL DAILY RF: 0 dicyclomine 10 mg Capsule 10 mg PO ACHS RF: 0 glipizide 5 mg tablet 5 mg PO BID RF: 0 fenofibrate 160 mg tablet 160 mg PO DAILY RF: 0 Januvia 100 mg tablet 100 mg PO DAILY RF: 0 omega 7-hwh-hda-fish oil [Fish Oil] 1,000 mg (120 mg-180 mg) Capsule 1 cap PO DAILY RF: 0 Vitron-C 65 mg iron- 125 mg Tablet,Delayed Release (Dr/Ec) 1 tab PO BID RF: 0 Benafiber 1 packet PO DAILY RF: 0 Discharge Orders: Discharge Order (Routine); Ordered 02/17/20 Ordered By: Shashank Ely Admission Data Admit Date/Time: 02/16/20 02:15 Attending Provider: Shashank Ely Admit Provider: Angelo Garland Primary Care Provider: Anayeli Tran Other Providers: Goyo Reyes ; Angelo Garland
[2020-02-17 13:31] LABS: BUN Creatinine Ratio 28.4 (10-20); Calcium 8.2 mg/dl (8.5-10.1); Creatinine Clr Calc Pharmacy 110.2 ml/min; Est GFR (African American) 132.6; Est GFR (Non-African American) 114.4
== END 2020-02-17 14:32 | disposition home or self-care (01) | DRG 694 ==
LOC: ED 20:50 → 3N 02-16 02:15
DX: E11.9 Type 2 diabetes mellitus without complications; K62.3 Rectal prolapse; Z99.3 Dependence on wheelchair; G71.00 Muscular dystrophy, unspecified; E78.5 Hyperlipidemia, unspecified; Z88.2 Allergy status to sulfonamides; N20.2 Calculus of kidney with calculus of ureter

== ENCOUNTER 2025-01-15 18:43 | Inpatient (IN) ==
--- NOTE | 2025-01-15 19:10 | Emergency Department Note ---
History of Present Illness General Chief Complaint: Flank Pain Stated Complaint: FLANK PAIN BOTH SIDES, HAS CATHETER Time Seen by Provider: 01/15/25 18:52 History of Present Illness Provider Complaint: flank pain Onset (ago): 1 week(s) Location: R flank Maximum Pain Intensity: 10 Current Pain Intensity: 9 Quality: + stabbing and + sharp Relieved By: + nothing Exacerbated By: + nothing Context: + history of similar episodes (History of kidney stones); no foreign travel, no possible food poisoning, no sick contacts, no recent antibiotic use or no recent injury Associated Symptoms: + nausea; no vomiting, no diarrhea, no fever, no chills, no constipation, no hematemesis, no hematuria, no headache, no neck pain and no chest pain Home Medications Medication Instructions Recorded Confirmed Type amitriptyline 10 mg tablet 30 mg PO HS 02/15/20 12/09/24 History cetirizine 10 mg tablet (Zyrtec) 10 mg PO QPM 02/15/20 12/09/24 History fenofibrate 160 mg tablet 160 mg PO QAM 02/15/20 12/09/24 History fluticasone propionate 50 2 spray intranasal DAILY 02/15/20 12/09/24 History mcg/actuation nasal spray,suspension iron,carbonyl 65 mg-vitamin C 125 1 tab PO BID 02/15/20 12/09/24 History mg tablet,delayed release (Vitron-C) lisinopril 5 mg tablet 5 mg PO QAM 02/15/20 12/09/24 History omega 3-zqj-jse-fish oil 1,000 mg 1 cap PO BID 02/15/20 12/09/24 History (120 mg-180 mg) capsule (Fish Oil) polyethylene glycol 3350 17 17 g PO DAILY PRN Constipation 02/15/20 12/09/24 History gram/dose oral powder (Miralax) sitagliptin phosphate 100 mg 100 mg PO QAM 02/15/20 12/09/24 History tablet (Januvia) solifenacin 10 mg tablet (Vesicare) 10 mg PO HS 06/08/20 12/09/24 History atorvastatin 40 mg tablet 40 mg PO QAM 11/17/23 12/09/24 History guar gum 2 tbsp PO DAILY 11/17/23 12/09/24 History insulin aspart U-100 100 unit/mL See Rx Instructions .Route .COMPLEX 11/17/23 12/09/24 History subcutaneous solution (Novolog U-100 Insulin aspart) fluconazole 100 mg tablet 100 mg PO DAILY 5 days #5 tabs 11/23/23 12/09/24 Rx ondansetron HCl 4 mg tablet 4 mg PO Q8H PRN nausea and 01/11/25 Rx vomiting #10 tabs Allergies Allergy/AdvReac Type Severity Reaction Status Date / Time Sulfa (Sulfonamide Allergy Intermediate ITCHY Verified 01/28/24 13:24 Antibiotics) RASH, FLU-LIKE SYMPTOMS amoxicillin [From Augmentin] Allergy Rash Verified 01/28/24 13:24 clavulanic acid Allergy Rash Verified 01/28/24 13:24 [From Augmentin] metformin AdvReac Intermediate MODERATELY Verified 01/28/24 13:24 SEVERE NAUSEA Past Med/Surg History Problem List (Updated 01/15/25 @ 21:30 by Jose Mcdonald MD) Hyponatremia (Acute) Vaginal prolapse Right sided abdominal pain Calculus of right ureter (Acute) Nephrolithiasis Medical History (Updated 01/15/25 @ 21:30 by Jose Mcdonald MD) Kidney stones GERD (gastroesophageal reflux disease) Spinal muscular atrophy type III UNABLE TO AMBULATE/USES POWERED WHEELCHAIR/CHAIR LIFT USED AT HOME Irregular heart beat NO CARDS Hyperlipidemia Hypertension Type 2 diabetes mellitus Muscular dystrophy Surgical History History of anesthesia reaction WAS TOLD NEVER TO GET A PARALYTIC ANESTHETIC History of cystoscopy History of lithotripsy History of esophagogastroduodenoscopy (EGD) History of colonoscopy History of tooth extraction H/O spinal fusion LUMBAR Family History Uncle Diabetes Hypertension Father Hypertension Bladder cancer Other Breast cancer Liver cancer Ovarian cancer Social History Smoking Status: Never smoker Second Hand Exposure: No; Do You Dip or Chew Tobacco: No; Hx Alcohol Use: No Hx Substance Use: No Preferred Language: Malaysian Communication Ability: Effective Visual Impairment: No Limitations Blending Line Attendant Required: No Beliefs That Will Affect Care: None marital status: Single Current Living Situation: Alone Feels Safe at Home: Yes Assistive Devices: Glasses and Wheelchair Physical Exam 2 Vital Signs: Vital Signs - 24 hr 01/15/25 18:43 01/15/25 18:48 01/15/25 19:02 Temperature 36.1 C L 37.0 C Temperature Source Temporal Artery Sc an Oral Pulse Rate 94 H Pulse Rate [Right Finger] 111 H Pulse Rate from Sp O2 Sensor Respiratory Rate 18 18 Respiratory Effort / Characteristics Non-Labored Sponta neous Non-Labored Sponta neous Respiratory Depth Normal Normal Respiratory Patter n Regular Regular Blood Pressure 103/65 Blood Pressure [Ri ght Arm] 108/69 Blood Pressure Gladys n 77 Blood Pressure Gladys n [Right Arm] 82 Blood Pressure Pos ition [Right Arm] Sitting Pulse Oximetry 97 100 97 Oxygen Delivery Me thod Room Air Room Air Room Air Sepsis Recent Feve r Within 48 Hours No Sepsis New/Unexpla ined Change in Men tyra Status N/A Sepsis Action Take n by Nursing No Action Required 01/15/25 19:54 01/15/25 19:54 01/15/25 20:18 Temperature Temperature Source Pulse Rate 102 H 104 H Pulse Rate [Right Finger] 101 H Pulse Rate from Sp O2 Sensor 104 H Respiratory Rate 16 14 Respiratory Effort / Characteristics Non-Labored Sponta neous Respiratory Depth Normal Respiratory Patter n Regular Blood Pressure Blood Pressure [Ri ght Arm] 129/72 Blood Pressure Gladys n Blood Pressure Gladys n [Right Arm] 91 Blood Pressure Pos ition [Right Arm] Lying Pulse Oximetry 97 98 Oxygen Delivery Me thod Room Air Sepsis Recent Feve r Within 48 Hours Sepsis New/Unexpla ined Change in Men tyra Status Sepsis Action Take n by Nursing 01/15/25 20:24 01/15/25 20:30 01/15/25 20:42 Temperature Temperature Source Pulse Rate 106 H 103 H 100 H Pulse Rate [Right Finger] Pulse Rate from Sp O2 Sensor 106 H 103 H 100 H Respiratory Rate 19 17 Respiratory Effort / Characteristics Respiratory Depth Respiratory Patter n Blood Pressure Blood Pressure [Ri ght Arm] Blood Pressure Gladys n Blood Pressure Gladys n [Right Arm] Blood Pressure Pos ition [Right Arm] Pulse Oximetry 97 97 99 Oxygen Delivery Me thod Sepsis Recent Feve r Within 48 Hours Sepsis New/Unexpla ined Change in Men tyra Status Sepsis Action Take n by Nursing 01/15/25 21:03 01/15/25 21:10 01/15/25 21:10 Temperature Temperature Source Pulse Rate 103 H Pulse Rate [Right Finger] Pulse Rate from Sp O2 Sensor 104 H Respiratory Rate 18 Respiratory Effort / Characteristics Respiratory Depth Respiratory Patter n Blood Pressure 122/91 122/91 Blood Pressure [Ri ght Arm] Blood Pressure Gladys n 104 104 Blood Pressure Gladys n [Right Arm] Blood Pressure Pos ition [Right Arm] Pulse Oximetry 99 Oxygen Delivery Me thod Sepsis Recent Feve r Within 48 Hours Sepsis New/Unexpla ined Change in Men tyra Status Sepsis Action Take n by Nursing 01/15/25 21:15 Temperature Temperature Source Pulse Rate 104 H Pulse Rate [Right Finger] Pulse Rate from Sp O2 Sensor 104 H Respiratory Rate 12 Respiratory Effort / Characteristics Respiratory Depth Respiratory Patter n Blood Pressure Blood Pressure [Ri ght Arm] Blood Pressure Gladys n Blood Pressure Gladys n [Right Arm] Blood Pressure Pos ition [Right Arm] Pulse Oximetry 97 Oxygen Delivery Me thod Sepsis Recent Feve r Within 48 Hours Sepsis New/Unexpla ined Change in Men tyra Status Sepsis Action Take n by Nursing Physical Exam: Physical Exam GENERAL: Patient in wheelchair. HENT: Exam performed. - Head: Normocephalic and atraumatic. EYES: Conjunctivae and EOM are normal. Right eye exhibits no discharge. Left eye exhibits no discharge. No scleral icterus. NECK: Normal range of motion. Neck supple. No JVD present. CV: Normal rate, regular rhythm, normal heart sounds and intact distal pulses. There is no peripheral edema. Palpable radial pulses bue. PULM/CHEST: Effort normal and breath sounds normal. No respiratory distress. No stridor. no wheezes. no rales. ABD: The abdomen is soft. There is no tenderness. SKIN: Skin is warm and dry. He is not diaphoretic. PSYCH: normal mood and affect. Behavior is normal. Judgment and thought content normal. Course Course 1851: The patient was evaluated in room B7. A complete history and physical exam was performed Cardiac monitoring: An order was placed for continuous cardiac monitoring. The monitor shows a rate of 100 with sinus rhythm interpreted by me 2127: Stable. Labs show white count of 17. Sodium 117. Urinalysis is pending however does appear very cloudy. CT scan showed bladder wall thickening patient be treated empirically with Cipro. Patient will be admitted to the [facility] team discussed with Dr. Garland who accepts admission Administered Medications Sodium Chloride (Nss) 1,000 mls @ 125 mls/hr IV .Q8H NICOLE Stop: 01/16/25 20:44 Last Admin: 01/15/25 20:48 Dose: 125 mls/hr Documented By: JAHAIRA Discontinued Medications Sodium Chloride (Nss) 1,000 mls @ 999 mls/hr IV .Q1H1M ONE Stop: 01/15/25 19:54 Last Admin: 01/15/25 20:49 Dose: Not Given Documented By: JAHAIRA Sodium Chloride (Nss) 500 mls @ 999 mls/hr IV .Q31M ONE Stop: 01/15/25 19:38 Last Infusion: 01/15/25 20:50 Dose: Infused Documented By: Admin: 01/15/25 19:47 Dose: 999 mls/hr Documented By: PAUL Ketorolac Tromethamine (Ketorolac Tromethamine 15 Mg/Ml Vial) 15 mg IV NOW STA Stop: 01/15/25 18:55 Last Admin: 01/15/25 19:47 Dose: 15 mg Documented By: PAUL Ondansetron HCl (Ondansetron Inj 2 Mg/Ml 2 Ml Vial) 4 mg IV NOW STA Stop: 01/15/25 18:55 Last Admin: 01/15/25 19:47 Dose: 4 mg Documented By: PAUL Medical Decision Making Medical Records Attestation: I reviewed the patient's medical records. External medical records reviewed. Patient has CT of the abdomen pelvis done on January 10 which showed stable bilateral hydronephrosis left on the right with a few nonobstructing renal calculi but no ureteral calculi and possible strictures of the distal ureters. Urine culture from December 20, 2024 was negative. There is a nurse visit from January 12, 2025 from the urology nurse. A coud catheter was placed and was irrigated. Laboratory Data Attestation: I reviewed the patient's lab results. 01/15/25 19:35 01/15/25 19:35 Lab Results 01/15/25 01/15/25 Range/Units 19:35 20:37 WBC 17.01 H (4.8-10.8) K/ul RBC 3.91 L (4.20-5.40) M/uL Hgb 11.5 L (12.0-16.0) g/dl Hct 34.7 L (37.0-47.0) % MCV 88.7 (80.0-100.0) fL MCH 29.4 (25.0-34.0) pg MCHC 33.1 (32.0-36.0) g/dL RDW Std Deviation 43.6 (36.4-46.3) fL RDW Coeff of Latesha 13.2 (11.5-14.5) % Plt Count 476 H (130-400) K/uL MPV 9.6 (9.4-12.4) fL Immature Gran % (Auto) 0.7 % Neut % (Auto) 83.3 % Lymph % (Auto) 10.9 % Bell % (Auto) 4.1 % Eos % (Auto) 0.7 % Baso % (Auto) 0.3 % Neut # (Auto) 14.17 H (1.40-6.50) K/uL Lymph # (Auto) 1.85 (1.20-3.40) K/uL Bell # (Auto) 0.70 H (0.11-0.59) K/uL Eos # (Auto) 0.12 (0.00-0.50) K/uL Baso # (Auto) 0.05 (0.00-0.20) K/uL Immature Gran # (Auto) 0.12 (0.01-0.20) K/uL Sodium 117 L* (136-145) mmol/L Potassium 4.8 (3.5-5.1) mmol/L Chloride 88 L (98-107) mmol/L Carbon Dioxide 17 L (21-32) mmol/L Anion Gap 12 H (3-11) BUN 21 (6-23) mg/dl Creatinine 0.22 L (0.6-1.2) mg/dl Est Cr Clr Drug Dosing Not Reportable eGFR 135.76 BUN/Creatinine Ratio 95.5 H (10-20) Glucose 164 H (70-99(Fasting)) mg/dl Lactate 0.8 (0.4-2.0) mmol/L Calcium 8.4 L (8.6-10.3) mg/dl Total Bilirubin 0.6 (0.2-1.0) mg/dl Direct Bilirubin 0.3 H (0-0.2) mg/dl AST 45 H (13-39) U/L ALT 46 (7-52) U/L Alkaline Phosphatase 55 (34-104) U/L Total Protein 7.6 (6.0-8.3) gm/dl Albumin 3.7 (3.4-5.0) gm/dl Lipase 46 (11-82) U/L Imaging Data Attestation: I personally reviewed and interpreted this imaging study as follows: My Impression: Chest x-ray negative. No pneumonia. Radiologist's Impression: Abdomen/Pelvis CT 01/15/25 18:54 Exam(s): CT ABDOMEN + PELVIS Without Contrast EXAM: CT Abdomen and Pelvis Without Intravenous Contrast CLINICAL HISTORY: R flank pain. TECHNIQUE: Axial computed tomography images of the abdomen and pelvis without intravenous contrast. CTDI is 27.84 mGy and DLP is 1171.14 mGy-cm. Automated exposure control was utilized for the study. A dose lowering technique was utilized adhering to the principles of ALARA. COMPARISON: CT abdomen and pelvis without contrast dated 01/10/2025 FINDINGS: Artifacts: Scatter artifact likely related to patient's arm position. Lung bases: Unremarkable. No mass. No consolidation. ABDOMEN: Liver: Unremarkable. Gallbladder and bile ducts: Subcentimeter layering cholelithiasis involving the dependent gallbladder. No CT evidence for gallbladder wall thickening or biliary dilatation. Pancreas: Unremarkable. No ductal dilation. Spleen: Unremarkable. No splenomegaly. Adrenals: Unremarkable. No mass. Kidneys and ureters: Overall stable to minimally improved bilateral hydroureteronephrosis the left renal pelvis measuring 3 cm in diameter from 3.8 cm previously. The right renal pelvis measures 1.9 cm in AP diameter from 2.3 cm previously. The previously noted nephrolithiasis and the inferior pole the left kidney in the right renal pelvis are stable and in morphologic appearance and position. Similar distention of the arteries without ureteral stones. Stomach and bowel: No evidence for bowel obstruction. Evaluation of the bowel mucosa is slightly limited without contrast; however, no definite focal asymmetry suggested. PELVIS: Appendix: Not identified. No significant findings to suggest pathology. Bladder: A Perez catheter is noted in the bladder. The bladder is decompressed limiting evaluation with diffuse wall thickening and perivesicular fat stranding. No bladder stones. Reproductive: Unremarkable as visualized. ABDOMEN and PELVIS: Intraperitoneal space: Unremarkable. No free air. No significant fluid collection. Bones/joints: No acute osseous abnormality with stable long segment posterior fusion throughout the included thoracolumbar spine, extending to the S1 segment. No dislocation. Soft tissues: Unremarkable. Vasculature: Unremarkable. No abdominal aortic aneurysm. Lymph nodes: Unremarkable. No enlarged lymph nodes. IMPRESSION: 1. Overall stable to minimally improved bilateral hydroureteronephrosis the left renal pelvis measuring 3 cm in diameter from 3.8 cm previously. The right renal pelvis measures 1.9 cm in AP diameter from 2.3 cm previously. The previously noted nephrolithiasis and the inferior pole the left kidney in the right renal pelvis are stable and in morphologic appearance and position. Similar distention of the arteries without ureteral stones. 2. A Perez catheter is noted in the bladder. The bladder is decompressed limiting evaluation with diffuse wall thickening and perivesicular fat stranding. No bladder stones. Cystitis may be present. Please correlate with urinalysis findings. Electronically signed by: Romaine Henriquez MD 01/15/25 20:[address] [facility] Narrative 1852: The patient was evaluated in room B7. A complete history and physical exam was performed Cardiac monitoring: An order was placed for continuous cardiac monitoring. The monitor shows a rate of 100 with sinus rhythm interpreted by tn 2127: Stable. Labs show white count of 17. Sodium 117. Urinalysis is pending however does appear very cloudy. CT scan showed bladder wall thickening patient be treated empirically with Cipro. [facility] with [facility]. Garland who accepts admission Impression & Plan Hyponatremia Discharge Plan Visit Data Chief Complaint: Flank Pain Stated Complaint: FLANK PAIN BOTH SIDES, HAS CATHETER ED Provider: Jose Mcdonald Discharge Problem: Hyponatremia Patient Disposition: Admitted As Inpatient Forms Stand Alone Forms: My [facility] Prescriptions Prescriptions: No Action ondansetron HCl 4 mg tablet 4 mg PO Q8H PRN (Reason: nausea and vomiting) Qty: 10 0RF fluconazole 100 mg tablet 100 mg PO DAILY 5 Days Qty: 5 0RF cetirizine [Zyrtec] 10 mg Tablet 10 mg PO QPM amitriptyline 10 mg tablet 30 mg PO HS lisinopril 5 mg tablet 5 mg PO QAM polyethylene glycol 3350 [Miralax] 17 gram/dose Powder 17 g PO DAILY PRN (Reason: Constipation) fluticasone propionate 50 mcg/actuation spray,suspension 2 spray INTRANASAL DAILY fenofibrate 160 mg tablet 160 mg PO QAM Januvia 100 mg tablet 100 mg PO QAM omega 5-gas-vzq-fish oil [Fish Oil] 1,000 mg (120 mg-180 mg) Capsule 1 cap PO BID Vitron-C 65 mg iron- 125 mg Tablet,Delayed Release (Dr/Ec) 1 tab PO BID solifenacin [Vesicare] 10 mg Tablet 10 mg PO HS atorvastatin 40 mg tablet 40 mg PO QAM Benefiber (guar gum) Packet 2 tbsp PO DAILY Rx Instructions: mix into at least 8 oz of water or juice before administering insulin aspart U-100 [Novolog U-100 Insulin aspart] 100 unit/mL solution See Rx Instructions .ROUTE .COMPLEX Rx Instructions: Pt uses Omnipod, this is the insulin in pod. Referrals Referrals: Anayeli Tran MD [Primary Care Provider] -
[2025-01-15] MEDS: SODIUM CHLORIDE 0.9% 500 ML IV ONE (19:47)
[2025-01-15] MEDS: ONDANSETRON INJ 2 MG/ML 2 ML VIAL IV STA (19:47)
[2025-01-15] MEDS: KETOROLAC TROMETHAMINE 15 MG/ML VIAL IV STA (19:47)
[2025-01-15 19:56] LABS: Basophils # (auto) 0.05 K/uL (0.00-0.20); Basophils % (auto) 0.3 %; Eosinophils # (auto) 0.12 K/uL (0.00-0.50); Eosinophils % (auto) 0.7 %; Hematocrit (blood only) 34.7 % (37.0-47.0); Hemoglobin 11.5 g/dl (12.0-16.0); Immature Granulocytes # (auto) 0.12 K/uL (0.01-0.20); Immature Granulocytes % (auto) 0.7 %; Lymphocytes # (auto) 1.85 K/uL (1.20-3.40); Lymphocytes % (auto) 10.9 %; Mean Corpuscular Hemoglobin 29.4 pg (25.0-34.0); Mean Corpuscular Hgb Conc 33.1 g/dL (32.0-36.0); Mean Corpuscular Volume 88.7 fL (80.0-100.0); Mean Platelet Volume 9.6 fL (9.4-12.4); Monocytes % (auto) 4.1 %; Neutrophils # (auto) 14.17 K/uL (1.40-6.50); Neutrophils % (auto) 83.3 %; Platelet Count 476 K/uL (130-400); RDW Coefficient of Variation 13.2 % (11.5-14.5); RDW Standard Deviation 43.6 fL (36.4-46.3); Red Blood Count 3.91 M/uL (4.20-5.40); White Blood Count 17.01 K/ul (4.8-10.8)
[2025-01-15 20:33] LABS: Alanine Aminotransferase 46 U/L (7-52); Albumin Level 3.7 gm/dl (3.4-5.0); Alkaline Phosphatase 55 U/L (34-104); Anion Gap 12 (3-11); Aspartate Aminotransferase 45 U/L (13-39); BUN Creatinine Ratio 95.5 (10-20); Bilirubin Direct 0.3 mg/dl (0-0.2); Bilirubin,Total 0.6 mg/dl (0.2-1.0); Blood Urea Nitrogen 21 mg/dl (6-23); Calcium 8.4 mg/dl (8.6-10.3); Carbon Dioxide 17 mmol/L (21-32); Chloride 88 mmol/L (98-107); Glucose 164 mg/dl (70-99(Fasting)); Lipase 46 U/L (11-82); Potassium 4.8 mmol/L (3.5-5.1); Sodium 117 mmol/L (136-145); Total Protein 7.6 gm/dl (6.0-8.3)
[2025-01-15] MEDS: SODIUM CHLORIDE 0.9% 1,000 ML IV SCH (20:48)
[2025-01-15] MEDS: SODIUM CHLORIDE 0.9% 1,000 ML IV ONE (20:49)
--- NOTE | 2025-01-15 20:59 | CT Scan Report ---
Exam(s): CT ABDOMEN + PELVIS Without Contrast EXAM: CT Abdomen and Pelvis Without Intravenous Contrast CLINICAL HISTORY: R flank pain. TECHNIQUE: Axial computed tomography images of the abdomen and pelvis without intravenous contrast. CTDI is 27.84 mGy and DLP is 1171.14 mGy-cm. Automated exposure control was utilized for the study. A dose lowering technique was utilized adhering to the principles of ALARA. COMPARISON: CT abdomen and pelvis without contrast dated 01/10/2025 FINDINGS: Artifacts: Scatter artifact likely related to patient's arm position. Lung bases: Unremarkable. No mass. No consolidation. ABDOMEN: Liver: Unremarkable. Gallbladder and bile ducts: Subcentimeter layering cholelithiasis involving the dependent gallbladder. No CT evidence for gallbladder wall thickening or biliary dilatation. Pancreas: Unremarkable. No ductal dilation. Spleen: Unremarkable. No splenomegaly. Adrenals: Unremarkable. No mass. Kidneys and ureters: Overall stable to minimally improved bilateral hydroureteronephrosis the left renal pelvis measuring 3 cm in diameter from 3.8 cm previously. The right renal pelvis measures 1.9 cm in AP diameter from 2.3 cm previously. The previously noted nephrolithiasis and the inferior pole the left kidney in the right renal pelvis are stable and in morphologic appearance and position. Similar distention of the arteries without ureteral stones. Stomach and bowel: No evidence for bowel obstruction. Evaluation of the bowel mucosa is slightly limited without contrast; however, no definite focal asymmetry suggested. PELVIS: Appendix: Not identified. No significant findings to suggest pathology. Bladder: A Perez catheter is noted in the bladder. The bladder is decompressed limiting evaluation with diffuse wall thickening and perivesicular fat stranding. No bladder stones. Reproductive: Unremarkable as visualized. ABDOMEN and PELVIS: Intraperitoneal space: Unremarkable. No free air. No significant fluid collection. Bones/joints: No acute osseous abnormality with stable long segment posterior fusion throughout the included thoracolumbar spine, extending to the S1 segment. No dislocation. Soft tissues: Unremarkable. Vasculature: Unremarkable. No abdominal aortic aneurysm. Lymph nodes: Unremarkable. No enlarged lymph nodes. IMPRESSION: 1. Overall stable to minimally improved bilateral hydroureteronephrosis the left renal pelvis measuring 3 cm in diameter from 3.8 cm previously. The right renal pelvis measures 1.9 cm in AP diameter from 2.3 cm previously. The previously noted nephrolithiasis and the inferior pole the left kidney in the right renal pelvis are stable and in morphologic appearance and position. Similar distention of the arteries without ureteral stones. 2. A Perez catheter is noted in the bladder. The bladder is decompressed limiting evaluation with diffuse wall thickening and perivesicular fat stranding. No bladder stones. Cystitis may be present. Please correlate with urinalysis findings. Electronically signed by: Romaine Henriquez MD 01/15/25 20:58 PM
[2025-01-15] MEDS: CIPROFLOXACIN / D5W 400 MG/200 ML BAG IV STA (21:27)
[2025-01-15 21:35] LABS: Appearance Urine Turbid (Clear); Bacteria Urine Automated 4+ (None Seen); Bilirubin Urine Negative (Negative); Blood Urine 3+ (Negative); Cast Urine Automated >20 /lpf (0-2); Color Urine Yellow; Glucose Urine UA Negative (Negative); Ketones Urine Trace (Negative); Leukocyte Esterase Urine 3+ (Negative); Nitrite Urine Negative (Negative); Protein Urine 3+ (Negative); RBC Urine Automated >20 /hpf (0-2); Specific Gravity Urine 1.018 (1.000-1.030); Urobilinogen Urine Negative (Negative); WBC Urine Automated >50 /hpf (0-5)
--- NOTE | 2025-01-15 22:24 | XRay Report ---
Exam(s): XR CXR 1 VIEW EXAM: XR Chest, 1 View CLINICAL HISTORY: ro pneumonia. TECHNIQUE: Frontal view of the chest. COMPARISON: Chest 2 views dated 06/08/2020 FINDINGS: Lungs: Accounting for overlying soft tissues, no definite focal airspace consolidation. The pulmonary vasculature is unremarkable. Pleural space: Unremarkable. No pneumothorax. No large pleural effusion. Heart: Unremarkable. No cardiomegaly. Mediastinum: The mediastinal contours are stable and unremarkable. The trachea is midline. Bones/joints: Extensive surgical hardware throughout the thoracic spine with vertical rods and cerclage wires. No acute osseous abnormality. IMPRESSION: No acute cardiopulmonary process or significant alteration from the prior examination. Electronically signed by: Romaine Henriquez MD 01/15/25 22:23 PM
--- NOTE | 2025-01-15 23:58 | History & Physical Report ---
Date of Service January 15, 2025 Assessment & Plan (1) Hyponatremia: Plan: 54-year-old female with past medical history significant for muscular dystrophy wheelchair bound, hyperlipidemia,diabetes, history of palpitations, history of kidney stones, anxiety who lives alone at home and has caregivers and mother checks on her comes in because of severe back pain and found to have UTI and hyponatremia. Patient states last she was placed on Perez by her u rologist because of the hydronephrosis. Last few days she has significant back pain. Was nauseous. Not able to eat much. Denies any fever or chills. No headache, no runny nose or sore throat. No cough. No chest pain or shortness of breath. No abdominal pain. Hemodynamics are okay. Hyponatremia Sodium 117 Last few days not eating drinking much as per patient and has nausea Received fluids in the ER Will recheck BMP. recheck sodium was 118 and started on NS @50ml/hr. Am labs sodium 123 and stopped fluids. Follow BMP every 4 hours Will check serum osmolality, urine osmolality and urine sodium levels Slow correction Nephro consult for further recommendation Acute UTI Er gave Cipro Will continue with cefepime Will follow the cultures Back pain Possible from above Pain control Bilateral hydroureteronephrosis Recently placed Perez catheter by urology Will consult urology for any further recommendations Diabetes Hold Januvia Sliding scale Hypertension On lisinopril We will monitor Hyperlipidemia On fenofibrate and Lipitor Muscular dystrophy Wheelchair-bound DVT prophylaxis Lovenox Disposition Telemetry full code. History of Present Illness Chief Complaint: Back pain, UTI, hyponatremia Primary Care Provider: Anayeli Tran MD 54-year-old female with past medical history significant for muscular dystrophy wheelchair bound, hyperlipidemia,diabetes, history of palpitations, history of kidney stones, anxiety who lives alone at home and has caregivers and mother checks on her comes in because of severe back pain and found to have UTI and hyponatremia. Patient states last she was placed on Perez by her urologist because of the hydronephrosis. Last few days she has significant back pain. Was nauseous. Not able to eat much. Denies any fever or chills. No headache, no runny nose or sore throat. No cough. No chest pain or shortness of breath. No abdominal pain. Hemodynamics are okay. Past medical history. As mentioned above Past surgical history. Colonoscopy. Fragment kidney stone by shockwave. Deep muscle biopsy for diagnosis of spinal muscular dystrophy 1972 or . Spinal fusion 1984. Upper GI endoscopy. Social history. No smoking. Alcohol socially. No drug use. Family history. Father had bladder cancer. Heart disorder. Hypertension. Mother had heart disorder. Hypertension. Paternal aunt had breast cancer. Brother has hypertension. Allergies Allergy/AdvReac Type Severity Reaction Status Date / Time Sulfa (Sulfonamide Allergy Intermediate ITCHY Verified 01/28/24 13:24 Antibiotics) RASH, FLU-LIKE SYMPTOMS amoxicillin [From Augmentin] Allergy Rash Verified 01/28/24 13:24 clavulanic acid Allergy Rash Verified 01/28/24 13:24 [From Augmentin] metformin AdvReac Intermediate MODERATELY Verified 01/28/24 13:24 SEVERE NAUSEA Home Medications Medication Instructions Recorded Confirmed Type amitriptyline 10 mg tablet 30 mg PO HS 01/15/25 01/15/25 History atorvastatin 40 mg tablet 40 mg PO DAILY 01/15/25 01/15/25 History calcium 500 mg (as 1 tab PO DAILY 01/15/25 01/15/25 History carbonate)-vitamin D3 3.125 mcg (125 unit) tablet cetirizine 10 mg tablet 10 mg PO DAILY 01/15/25 01/15/25 History dicyclomine 10 mg capsule 10 mg PO ACHS PRN Abdominal Pain 01/15/25 01/15/25 History diphenoxylate-atropine 2.5 1 tab PO QID PRN dairrhea 01/15/25 01/15/25 History mg-0.025 mg tablet (Lomotil) fenofibrate 160 mg tablet 160 mg PO DAILY 01/15/25 01/15/25 History fluticasone propionate 50 2 spray intranasal DAILY 01/15/25 01/15/25 History mcg/actuation nasal spray,suspension iron,carbonyl 65 mg-vitamin C 125 1 tab PO BID 01/15/25 01/15/25 History mg tablet,delayed release (Vitron-C) lisinopril 5 mg tablet 5 mg PO DAILY 01/15/25 01/15/25 History omega 5-plp-vvi-fish oil 1,000 mg 1 cap PO DAILY 01/15/25 01/15/25 History (120 mg-180 mg) capsule (Fish Oil) polyethylene glycol 3350 17 gram 17 g PO DAILY 01/15/25 01/15/25 History oral powder packet (Miralax) sitagliptin phosphate 100 mg 100 mg PO DAILY 01/15/25 01/15/25 History tablet (Januvia) solifenacin 10 mg tablet (Vesicare) 10 mg PO DAILY 01/15/25 01/15/25 History wheat dextrin 3 gram/3.5 gram oral 1 packet PO DAILY 01/15/25 01/15/25 History powder packet (Benefiber Clear Sugar Free(dextrin)) Past Med/Surg History Problem List (Updated 01/15/25 @ 21:30 by Jose Mcdonald MD) Hyponatremia (Acute) Vaginal prolapse Right sided abdominal pain Calculus of right ureter (Acute) Nephrolithiasis Medical History (Updated 01/15/25 @ 21:30 by Jose Mcdonald MD) Kidney stones GERD (gastroesophageal reflux disease) Spinal muscular atrophy type III UNABLE TO AMBULATE/USES POWERED WHEELCHAIR/CHAIR LIFT USED AT HOME Irregular heart beat NO CARDS Hyperlipidemia Hypertension Type 2 diabetes mellitus Muscular dystrophy Surgical History History of anesthesia reaction WAS TOLD NEVER TO GET A PARALYTIC ANESTHETIC History of cystoscopy History of lithotripsy History of esophagogastroduodenoscopy (EGD) History of colonoscopy History of tooth extraction H/O spinal fusion LUMBAR Family History Uncle Diabetes Hypertension Father Hypertension Bladder cancer Other Breast cancer Liver cancer Ovarian cancer Social History Smoking Status: Never smoker Second Hand Exposure: No; Do You Dip or Chew Tobacco: No; Hx Alcohol Use: No Hx Substance Use: No Preferred Language: Panamanian Communication Ability: Effective Visual Impairment: No Limitations Fastener Technologist Required: No Beliefs That Will Affect Care: None marital status: Single Current Living Situation: Alone Feels Safe at Home: Yes Safety Concerns: Feels Safe At This Time Assistive Devices: Glasses, Mechanical Lift and Wheelchair Review of Systems Review of Systems: All systems reviewed & are unremarkable except as noted in HPI & below Physical Exam Physical Exam: General- Not in distress Head- atraumatic Eyes- PERRL. ENT- oropharynx clear Neck- supple, no JVD. Lungs- clear to auscultation no wheezing or crackles Heart- regular rhythm; no murmur, no gallop. Abdomen- normal bowel sounds, soft, nontender, no distension Extremities- mild pretibial edema, no erythema seen. Neuro- alert, oriented PERRL, no facial palsy; no dysarthria. Results & Data Results & Data Vital Signs (Past 12 Hours) Vital Signs Temp Pulse Pulse Resp BP BP Pulse Ox 01/15/25 23:28 98 H 16 112/55 L 96 01/15/25 22:12 104 H 17 98 01/15/25 22:00 113/70 01/15/25 22:00 113/70 01/15/25 22:00 101 H 18 97 01/15/25 21:30 105 H 97 01/15/25 21:30 120/72 01/15/25 21:30 120/72 01/15/25 21:21 104 H 98 01/15/25 21:15 104 H 12 97 01/15/25 21:10 122/91 01/15/25 21:10 122/91 01/15/25 21:03 103 H 18 99 01/15/25 20:42 100 H 99 01/15/25 20:30 103 H 17 97 01/15/25 20:24 106 H 19 97 01/15/25 20:18 104 H 14 98 01/15/25 20:08 99 H 16 90/67 L 97 01/15/25 19:54 102 H 01/15/25 19:54 101 H 16 129/72 97 01/15/25 19:02 37.0 C 111 H 18 108/69 97 01/15/25 18:48 36.1 C L 94 H 18 103/65 100 01/15/25 18:43 97 O2 Del Method 01/15/25 23:28 Room Air 01/15/25 22:12 01/15/25 22:00 01/15/25 22:00 01/15/25 22:00 01/15/25 21:30 01/15/25 21:30 01/15/25 21:30 01/15/25 21:21 01/15/25 21:15 01/15/25 21:10 01/15/25 21:10 01/15/25 21:03 01/15/25 20:42 01/15/25 20:30 01/15/25 20:24 01/15/25 20:18 01/15/25 20:08 01/15/25 19:54 01/15/25 19:54 Room Air 01/15/25 19:02 Room Air 01/15/25 18:48 Room Air 01/15/25 18:43 Room Air Diagnostic Findings Laboratory Results WBC 17.01 K/ul (4.8-10.8) H 01/15/25 19:35 RBC 3.91 M/uL (4.20-5.40) L 01/15/25 19:35 Hgb 11.5 g/dl (12.0-16.0) L 01/15/25 19:35 Hct 34.7 % (37.0-47.0) L 01/15/25 19:35 MCV 88.7 fL (80.0-100.0) 01/15/25 19:35 MCH 29.4 pg (25.0-34.0) 01/15/25 19:35 MCHC 33.1 g/dL (32.0-36.0) 01/15/25 19:35 RDW Std Deviation 43.6 fL (36.4-46.3) 01/15/25 19:35 RDW Coeff of Latesha 13.2 % (11.5-14.5) 01/15/25 19:35 Plt Count 476 K/uL (130-400) H 01/15/25 19:35 MPV 9.6 fL (9.4-12.4) 01/15/25 19:35 Immature Gran % (Auto) 0.7 % 01/15/25 19:35 Neut % (Auto) 83.3 % 01/15/25 19:35 Lymph % (Auto) 10.9 % 01/15/25 19:35 [place] % (Auto) 4.1 % 01/15/25 19:35 Eos % (Auto) 0.7 % 01/15/25 19:35 Baso % (Auto) 0.3 % 01/15/25 19:35 Neut # (Auto) 14.17 K/uL (1.40-6.50) H 01/15/25 19:35 Lymph # (Auto) 1.85 K/uL (1.20-3.40) 01/15/25 19:35 [place] # (Auto) 0.70 K/uL (0.11-0.59) H 01/15/25 19:35 Eos # (Auto) 0.12 K/uL (0.00-0.50) 01/15/25 19:35 Baso # (Auto) 0.05 K/uL (0.00-0.20) 01/15/25 19:35 Immature Gran # (Auto) 0.12 K/uL (0.01-0.20) 01/15/25 19:35 Sodium 117 mmol/L (136-145) L* 01/15/25 19:35 Potassium 4.8 mmol/L (3.5-5.1) 01/15/25 19:35 Chloride 88 mmol/L (98-107) L 01/15/25 19:35 Carbon Dioxide 17 mmol/L (21-32) L 01/15/25 19:35 Anion Gap 12 (3-11) H 01/15/25 19:35 BUN 21 mg/dl (6-23) 01/15/25 19:35 Creatinine 0.22 mg/dl (0.6-1.2) L 01/15/25 19:35 Est Cr Clr Drug Dosing Not Reportable 01/15/25 19:35 eGFR 135.76 01/15/25 19:35 BUN/Creatinine Ratio 95.5 (10-20) H 01/15/25 19:35 Glucose 164 mg/dl (70-99(Fasting)) H 01/15/25 19:35 Lactate 0.8 mmol/L (0.4-2.0) 01/15/25 20:37 Calcium 8.4 mg/dl (8.6-10.3) L 01/15/25 19:35 Total Bilirubin 0.6 mg/dl (0.2-1.0) 01/15/25 19:35 Direct Bilirubin 0.3 mg/dl (0-0.2) H 01/15/25 19:35 AST 45 U/L (13-39) H 01/15/25 19:35 ALT 46 U/L (7-52) 01/15/25 19:35 Alkaline Phosphatase 55 U/L (34-104) 01/15/25 19:35 Total Protein 7.6 gm/dl (6.0-8.3) 01/15/25 19:35 Albumin 3.7 gm/dl (3.4-5.0) 01/15/25 19:35 Lipase 46 U/L (11-82) 01/15/25 19:35 Urine Color Yellow 01/15/25 20:22 Urine Appearance Turbid (Clear) A 01/15/25 20: Urine pH 6.0 (4.5-7.5) 01/15/25 20:22 Ur Specific [place] 1.018 (1.000-1.030) 01/15/25 20:22 Urine Protein 3+ (Negative) H 01/15/25 20:22 Urine Glucose (UA) Negative (Negative) 01/15/25 20: Urine Ketones Trace (Negative) H 01/15/25 20: Urine Blood 3+ (Negative) H 01/15/25 20:22 Urine Nitrite Negative (Negative) 01/15/25 20: Urine Bilirubin Negative (Negative) 01/15/25 20: Urine Urobilinogen Negative (Negative) 01/15/25 20:22 Ur Leukocyte Esterase 3+ (Negative) H 01/15/25 20:22 Urine WBC (Auto) >50 /hpf (0-5) H 01/15/25 20:22 Urine RBC (Auto) >20 /hpf (0-2) H 01/15/25 20:22 U Hyaline Cast (Auto) >20 /lpf (0-2) H 01/15/25 20:22 U Epithel Cells (Auto) 6-10 /hpf (0-2) H 01/15/25 20:22 Urine Bacteria (Auto) 4+ (None Seen) H 01/15/25 20:22 Impressions Abdomen/Pelvis CT 01/15/25 18:54 Exam(s): CT ABDOMEN + PELVIS Without Contrast EXAM: CT Abdomen and Pelvis Without Intravenous Contrast CLINICAL HISTORY: R flank pain. TECHNIQUE: Axial computed tomography images of the abdomen and pelvis without intravenous contrast. CTDI is 27.84 mGy and DLP is 1171.14 mGy-cm. Automated exposure control was utilized for the study. A dose lowering technique was utilized adhering to the principles of ALARA. COMPARISON: CT abdomen and pelvis without contrast dated 01/10/2025 FINDINGS: Artifacts: Scatter artifact likely related to patient's arm position. Lung bases: Unremarkable. No mass. No consolidation. ABDOMEN: Liver: Unremarkable. Gallbladder and bile ducts: Subcentimeter layering cholelithiasis involving the dependent gallbladder. No CT evidence for gallbladder wall thickening or biliary dilatation. Pancreas: Unremarkable. No ductal dilation. Spleen: Unremarkable. No splenomegaly. Adrenals: Unremarkable. No mass. Kidneys and ureters: Overall stable to minimally improved bilateral hydroureteronephrosis the left renal pelvis measuring 3 cm in diameter from 3.8 cm previously. The right renal pelvis measures 1.9 cm in AP diameter from 2.3 cm previously. The previously noted nephrolithiasis and the inferior pole the left kidney in the right renal pelvis are stable and in morphologic appearance and position. Similar distention of the arteries without ureteral stones. Stomach and bowel: No evidence for bowel obstruction. Evaluation of the bowel mucosa is slightly limited without contrast; however, no definite focal asymmetry suggested. PELVIS: Appendix: Not identified. No significant findings to suggest pathology. Bladder: A Perez catheter is noted in the bladder. The bladder is decompressed limiting evaluation with diffuse wall thickening and perivesicular fat stranding. No bladder stones. Reproductive: Unremarkable as visualized. ABDOMEN and PELVIS: Intraperitoneal space: Unremarkable. No free air. No significant fluid collection. Bones/joints: No acute osseous abnormality with stable long segment posterior fusion throughout the included thoracolumbar spine, extending to the S1 segment. No dislocation. Soft tissues: Unremarkable. Vasculature: Unremarkable. No abdominal aortic aneurysm. Lymph nodes: Unremarkable. No enlarged lymph nodes. IMPRESSION: 1. Overall stable to minimally improved bilateral hydroureteronephrosis the left renal pelvis measuring 3 cm in diameter from 3.8 cm previously. The right renal pelvis measures 1.9 cm in AP diameter from 2.3 cm previously. The previously noted nephrolithiasis and the inferior pole the left kidney in the right renal pelvis are stable and in morphologic appearance and position. Similar distention of the arteries without ureteral stones. 2. A Perez catheter is noted in the bladder. The bladder is decompressed limiting evaluation with diffuse wall thickening and perivesicular fat stranding. No bladder stones. Cystitis may be present. Please correlate with urinalysis findings. Electronically signed by: Romaine Henriquez MD 01/15/25 20:58 PM Chest X-Ray 01/15/25 20:08 Exam(s): XR CXR 1 VIEW EXAM: XR Chest, 1 View CLINICAL HISTORY: ro pneumonia. TECHNIQUE: Frontal view of the chest. COMPARISON: Chest 2 views dated 06/08/2020 FINDINGS: Lungs: Accounting for overlying soft tissues, no definite focal airspace consolidation. The pulmonary vasculature is unremarkable. Pleural space: Unremarkable. No pneumothorax. No large pleural effusion. Heart: Unremarkable. No cardiomegaly. Mediastinum: The mediastinal contours are stable and unremarkable. The trachea is midline. Bones/joints: Extensive surgical hardware throughout the thoracic spine with vertical rods and cerclage wires. No acute osseous abnormality. IMPRESSION: No acute cardiopulmonary process or significant alteration from the prior examination. Electronically signed by: Romaine Henriquez MD 01/15/25 22:23 PM Code Status & VTE Plan VTE Prophylaxis Plan VTE Prophylaxis will be ordered: Yes
[2025-01-16] MEDS: HYDROmorphone INJ 0.5 MG/0.5 ML SYR IV STA (00:16)
[2025-01-16 00:35] LABS: BUN Creatinine Ratio 104.8 (10-20); Calcium 7.7 mg/dl (8.6-10.3); Creatinine Clr Calc Pharmacy 235.7 ml/min; Potassium 4.7 mmol/L (3.5-5.1)
[2025-01-16] MEDS: SODIUM CHLORIDE 0.9% 1,000 ML IV SCH (00:47)
[2025-01-16] MEDS ORDERED: CARBOHYDRATES FOR HYPOGLYCEMIA PO PRN (02:25)
[2025-01-16] MEDS ORDERED: GLUCOSE 40% GEL 15 GM TUBE PO PRN (02:25)
[2025-01-16] MEDS ORDERED: HYDROmorphone INJ 0.5 MG/0.5 ML SYR IV PRN (02:25)
[2025-01-16] MEDS ORDERED: NITROGLYCERIN SL 0.4 MG/TAB TAB SL PRN (02:25)
[2025-01-16] MEDS ORDERED: GLUCAGON FOR INJ 1 MG VIAL SQ PRN (02:25)
[2025-01-16] MEDS ORDERED: DEXTROSE 50% 50 ML SYRINGE IV PRN (02:25)
[2025-01-16] MEDS ORDERED: GLUCOSE 10 TAB/TUBE PO PRN (02:25)
[2025-01-16] MEDS: CEFEPIME 2000MG 2,000 MG/20 ML SYR IV SCH (02:54)
[2025-01-16 06:28] LABS: Basophils # (auto) 0.07 K/uL (0.00-0.20); Basophils % (auto) 0.4 %; Eosinophils # (auto) 0.28 K/uL (0.00-0.50); Eosinophils % (auto) 1.7 %; Hematocrit (blood only) 32.5 % (37.0-47.0); Hemoglobin 10.2 g/dl (12.0-16.0); Immature Granulocytes # (auto) 0.14 K/uL (0.01-0.20); Immature Granulocytes % (auto) 0.8 %; Lymphocytes # (auto) 2.58 K/uL (1.20-3.40); Lymphocytes % (auto) 15.2 %; Mean Corpuscular Hemoglobin 28.7 pg (25.0-34.0); Mean Corpuscular Hgb Conc 31.4 g/dL (32.0-36.0); Mean Corpuscular Volume 91.3 fL (80.0-100.0); Mean Platelet Volume 9.5 fL (9.4-12.4); Monocytes % (auto) 6.5 %; Neutrophils # (auto) 12.75 K/uL (1.40-6.50); Neutrophils % (auto) 75.4 %; Platelet Count 427 K/uL (130-400); RDW Coefficient of Variation 13.2 % (11.5-14.5); RDW Standard Deviation 44.1 fL (36.4-46.3); Red Blood Count 3.56 M/uL (4.20-5.40); White Blood Count 16.92 K/ul (4.8-10.8)
[2025-01-16 06:50] LABS: Anion Gap 10 (3-11); Blood Urea Nitrogen 16 mg/dl (6-23); Calcium 7.7 mg/dl (8.6-10.3); Carbon Dioxide 17 mmol/L (21-32); Chloride 96 mmol/L (98-107); Creatinine Clr Calc Pharmacy 242.5 ml/min; Glucose 93 mg/dl (70-99(Fasting)); Magnesium 1.7 mg/dl (1.7-2.4); Potassium 3.8 mmol/L (3.5-5.1); Sodium 123 mmol/L (136-145)
[2025-01-16] MEDS: ONDANSETRON INJ 2 MG/ML 2 ML VIAL IV PRN (07:37)
[2025-01-16] MEDS: DEXTROSE 5% 1,000 ML IV SCH (07:37)
[2025-01-16] MEDS: HYDROmorphone INJ 0.5 MG/0.5 ML SYR IV PRN (07:40)
[2025-01-16] MEDS: DICYCLOMINE HCL 10 MG CAP PO PRN (07:41)
[2025-01-16] MEDS: ATORVASTATIN 40 MG TAB PO SCH (07:41)
[2025-01-16] MEDS: CALCIUM 600MG + VIT D 400 IU TAB PO SCH (07:41)
[2025-01-16] MEDS: OXYBUTYNIN CHLORIDE XL 5 MG TABCR PO SCH (07:42)
[2025-01-16] MEDS: FERROUS SULFATE 325 MG TAB PO SCH (07:43)
[2025-01-16] MEDS: PSYLLIUM or GUAR GUM FIBER 4GM PACKET PO SCH (07:43)
[2025-01-16] MEDS: ASCORBIC ACID 500 MG TAB PO SCH (07:44)
[2025-01-16] MEDS: FLUTICASONE PROPIONATE NA SPR 16 GM BTL NAE SCH (07:45)
[2025-01-16] MEDS: ENOXAPARIN INJ 40 MG/0.4 ML SYR SQ SCH (07:45)
[2025-01-16] MEDS: lisinopril 5 MG TAB PO SCH (07:45)
[2025-01-16 07:54] LABS: Estimated Average Glucose 117 mg/dl; Hemoglobin A1C 5.7 % (4.5-5.6)
[2025-01-16] MEDS: INSULIN ASPART PER UNIT CHARGE SC SCH (08:06)
[2025-01-16] MEDS: CETIRIZINE HCL 10 MG TABLET PO SCH ×2 (08:07→20:54)
[2025-01-16] MEDS ORDERED: Nursing to Pharmacy Communication SCH (08:15)
[2025-01-16 09:16] LABS: Anion Gap 9 (3-11); Blood Urea Nitrogen 14 mg/dl (6-23); Calcium 7.6 mg/dl (8.6-10.3); Carbon Dioxide 19 mmol/L (21-32); Chloride 97 mmol/L (98-107); Creatinine Clr Calc Pharmacy 242.5 ml/min; Glucose 134 mg/dl (70-99(Fasting)); Sodium 125 mmol/L (136-145)
--- NOTE | 2025-01-16 09:37 | Nephrology Consultation ---
Date of Consultation January 16, 2025 Assessment & Plan (1) Hyponatremia: hypotonic hypovolemic hyponatremia based on response to resuscitation after 1.5 L Presented w/ severe hyponatremia at 117 at 1930 and corrected to 125 12 hrs later Glucocorticoid deficiency excluded by elevated AM cortisol 35; TSH wnl target Na is 123 this evening; already at 125 this morning. Complicated by patient intolerance to most solid food >started D5W at 150 mL hourly at about 0730; increased rate to 300 mL hourly at 0900 but there was an issue with the order so rate being increased more at about 11:30 AM to 300 mL/min to run continuously; BG likely to need more intensive therapy -control pain but avoid nsaids -cont q4H BMP >> may need desmopressin depending on next labs which I retimed to 2 PM - no FR for now Follow-up pending urine and blood cultures - Asked dietitian who is entering to evaluate patient to review with her ways to get 1 g/kg protein intake daily both here and at home; consider trial of milkshake with protein powder or similar; RD assistance appreciated Care coordinated w/ Dr Vargas re dietary aims, retimed labs, IVF timing/rates via TText; we are in agreement. History of Present Illness Reason for Consultation: hyponatremia Requesting Physician: Dr Garland Attending Physician: Craig Vargas MD History of Present Illness 54 y/o F whom I'm asked to see for hyponatremia was admitted overnight for hyponatremia and UTI. PMH includes muscular dystrophy d/t which w/c bound and Alina lift dependent, DM, anxiety, HL, h/o stones s/p R sided PCNL 2020 and palpitations, also h/o cystocele and 1984 spinal fusion. On 01/12 had butler placed after CT showed stable BL hydronephrosis L moderate, R mild and no ureteral calculi. Sodium was 117 at 1930 last evening; it's 125 this AM as of 0800. She has had 1.5L NS; had a dose of ketorolac x 1 and also dose of dilaudid. Had a dose of cipro for UTI; now on cefepime for same. Mom at bedside today. Patient tells me she has not been feeling well with what she thought were UTI symptoms. Has been having dry heaves and poor p.o. intake particularly to solid food ever since. In the past few days she has had worse nausea and intolerance to different foods and is getting down minimal liquid food like Jell-O. Almost no protein intake No vomiting; no shortness of breath; no cough or wheeze; no edema; had 1 loose bowel movement last evening but otherwise no diarrhea; her perineum she tells me is raw and excoriated due to urinary incontinence recently. Endorses some increased challenge past 24 to 36 hours with attention and/or giving detailed history. No seizure-like activity. Allergies Allergy/AdvReac Type Severity Reaction Status Date / Time Sulfa (Sulfonamide Allergy Intermediate ITCHY Verified 01/28/24 13:24 Antibiotics) RASH, FLU-LIKE SYMPTOMS amoxicillin [From Augmentin] Allergy Rash Verified 01/28/24 13:24 clavulanic acid Allergy Rash Verified 01/28/24 13:24 [From Augmentin] metformin AdvReac Intermediate MODERATELY Verified 01/28/24 13:24 SEVERE NAUSEA Home Medications Medication Instructions Recorded Confirmed Type amitriptyline 10 mg tablet 30 mg PO HS 01/15/25 01/15/25 History atorvastatin 40 mg tablet 40 mg PO DAILY 01/15/25 01/15/25 History calcium 500 mg (as 1 tab PO DAILY 01/15/25 01/15/25 History carbonate)-vitamin D3 3.125 mcg (125 unit) tablet cetirizine 10 mg tablet 10 mg PO DAILY 01/15/25 01/15/25 History dicyclomine 10 mg capsule 10 mg PO ACHS PRN Abdominal Pain 01/15/25 01/15/25 History diphenoxylate-atropine 2.5 1 tab PO QID PRN dairrhea 01/15/25 01/15/25 History mg-0.025 mg tablet (Lomotil) fenofibrate 160 mg tablet 160 mg PO DAILY 01/15/25 01/15/25 History fluticasone propionate 50 2 spray intranasal DAILY 01/15/25 01/15/25 History mcg/actuation nasal spray,suspension iron,carbonyl 65 mg-vitamin C 125 1 tab PO BID 01/15/25 01/15/25 History mg tablet,delayed release (Vitron-C) lisinopril 5 mg tablet 5 mg PO DAILY 01/15/25 01/15/25 History omega 6-wqz-hsm-fish oil 1,000 mg 1 cap PO DAILY 01/15/25 01/15/25 History (120 mg-180 mg) capsule (Fish Oil) polyethylene glycol 3350 17 gram 17 g PO DAILY 01/15/25 01/15/25 History oral powder packet (Miralax) sitagliptin phosphate 100 mg 100 mg PO DAILY 01/15/25 01/15/25 History tablet (Januvia) solifenacin 10 mg tablet (Vesicare) 10 mg PO DAILY 01/15/25 01/15/25 History wheat dextrin 3 gram/3.5 gram oral 1 packet PO DAILY 01/15/25 01/15/25 History powder packet (Benefiber Clear Sugar Free(dextrin)) Patient History Medical History Kidney stones GERD (gastroesophageal reflux disease) Spinal muscular atrophy type III UNABLE TO AMBULATE/USES POWERED WHEELCHAIR/CHAIR LIFT USED AT HOME Irregular heart beat NO CARDS Hyperlipidemia Hypertension Type 2 diabetes mellitus Muscular dystrophy Surgical History History of anesthesia reaction WAS TOLD NEVER TO GET A PARALYTIC ANESTHETIC History of cystoscopy History of lithotripsy History of esophagogastroduodenoscopy (EGD) History of colonoscopy History of tooth extraction H/O spinal fusion LUMBAR Family History Uncle Diabetes Hypertension Father Hypertension Bladder cancer Other Breast cancer Liver cancer Ovarian cancer Social History Smoking Status: Never smoker Second Hand Exposure: No; Do You Dip or Chew Tobacco: No; Hx Alcohol Use: No Hx Substance Use: No Preferred Language: [place] Communication Ability: Effective Visual Impairment: No Limitations Secretary Administrative Assistant Required: No Beliefs That Will Affect Care: None marital status: Single Current Living Situation: Alone Feels Safe at Home: Yes Safety Concerns: Feels Safe At This Time Assistive Devices: Glasses, Mechanical Lift and Wheelchair Review of Systems 2 Review of Systems: All systems reviewed & are unremarkable except as noted in HPI & below Physical Exam 2 Constitutional: well developed, well nourished, + frail appearing and cooperative; no acute distress Eyes: EOM intact bilaterally ENMT: Mouth: + dry oral mucous membranes Neck: no nuchal rigidity Respiratory: normal respiratory effort Auscultation: + diminished lung sounds Cardiovascular: Rate/Rhythm: + tachycardic Extremities: no edema Gastrointestinal (Abdomen): Inspection/Auscultation: normal bowel sounds P ercussion/Palpation: abdomen soft; abdomen nontender Skin: no rashes, warm and dry Neurologic: cast, fluent speech, no tremor Psychiatric: Orientation: alert and oriented x 3 Results & Data Vital Signs (Past 12 Hours) Vital Signs Temp Pulse Pulse Resp BP BP Pulse Ox 01/16/25 07:50 36.7 C 111 H 12 129/78 97 01/16/25 03:00 01/16/25 02:37 36.2 C L 100 H 20 129/81 100 01/16/25 00:48 98 H 16 114/68 97 01/16/25 00:12 97 H 18 97 01/16/25 00:03 98 H 18 98 01/16/25 00:00 119/63 01/16/25 00:00 119/63 01/16/25 00:00 119/63 01/15/25 23:57 96 H 13 98 01/15/25 23:52 98 H 01/15/25 23:51 99 H 15 98 01/15/25 23:28 98 H 16 112/55 L 96 01/15/25 23:24 100 H 12 97 01/15/25 23:03 103 H 14 97 01/15/25 23:00 90/67 L 01/15/25 22:54 104 H 16 97 01/15/25 22:51 103 H 18 98 01/15/25 22:30 108/78 01/15/25 22:18 103 H 18 97 01/15/25 22:12 104 H 17 98 01/15/25 22:00 113/70 01/15/25 22:00 113/70 01/15/25 22:00 101 H 18 97 01/15/25 21:30 105 H 97 01/15/25 21:30 120/72 01/15/25 21:30 120/72 O2 Del Method 01/16/25 07:50 Room Air 01/16/25 03:00 Room Air 01/16/25 02:37 Room Air 01/16/25 00:48 Room Air 01/16/25 00:12 01/16/25 00:03 01/16/25 00:00 01/16/25 00:00 01/16/25 00:00 01/15/25 23:57 01/15/25 23:52 01/15/25 23:51 01/15/25 23:28 Room Air 01/15/25 23:24 01/15/25 23:03 01/15/25 23:00 01/15/25 22:54 01/15/25 22:51 01/15/25 22:30 01/15/25 22:18 01/15/25 22:12 01/15/25 22:00 01/15/25 22:00 01/15/25 22:00 01/15/25 21:30 01/15/25 21:30 01/15/25 21:30 Laboratory Results 01/16/25 06:01 01/16/25 08:19 U Na 30, U Osm 244 at 0530 AM cortisol 35 S Osms 258 UA turbid 1018 w/ 3+protein, blood, LE; over 50 wbc, trace ketones, 4+ bacteria, 6-10 epithelial cells (sic) Diagnostic Findings cxr no acute CP process CT a/p w/ con 1. Overall stable to minimally improved bilateral hydroureteronephrosis the left renal pelvis measuring 3 cm in diameter from 3.8 cm previously. The right renal pelvis measures 1.9 cm in AP diameter from 2.3 cm previously. The previously noted nephrolithiasis and the inferior pole the left kidney in the right renal pelvis are stable and in morphologic appearance and position. Similar distention of the arteries without ureteral stones. 2. A Butler catheter is noted in the bladder. The bladder is decompressed limiting evaluation with diffuse wall thickening and perivesicular fat stranding. No bladder stones. Cystitis may be present.
--- NOTE | 2025-01-16 10:17 | Urology Consultation ---
Date of Consultation January 16, 2025 Assessment & Plan (1) Hydronephrosis: (2) UTI (urinary tract infection): (3) Back pain: (4) Nephrolithiasis: (5) Hyponatremia: Plan 54yo/F admitted with hyponatremia, UTI, and b/l hydronephrosis. Urology consulted for UTI and bilateral hydronephrosis She is afebrile with stable vitals at present Labs show leukocytosis of 16.92, stable creatinine, sodium 125 UA concerning for infection. Urine/blood cultures pending. On IV Cefepime. Perez draining clear yellow urine. CT A/P on arrival shows stable to minimally improved bilateral hydronephrosis, stable nephrolithiasis without ureteral stones. Patient has a history of vaginal prolapse and muscular dystrophy which may have contributed to her retention/incomplete bladder emptying. Hydronephrosis may be due to hx of urinary retention/incomplete bladder emptying, infection, stri cture, or other. For now, no plan for acute intervention. Patient had a small amount of breakfast and is not appropriately NPO. She is also currently being managed for hyponatremia. At the present time, she is stable without fever, renal function is stable, and she reports improvement in back pain. Will plan to continue to monitor closely and can revisit possible ureteral stent placement with any acute changes, fevers, or severe pain. Continue antibiotics and tailor per culture sensitivities Maintain Perez catheter Urology will follow along, please call with any questions/concerns or changes in status History of Present Illness Attending Physician: Craig Vargas MD History of Present Illness 54 year old female with a history of muscular dystrophy who presented with severe back pain and is admitted to the hospital with hyponatremia and acute UTI. CT abdomen pelvis on arrival demonstrated stable to minimally improved bilateral hydronephrosis. Patient had a recent outpatient workup with a CT abdomen pelvis which was notable for bilateral hydronephrosis and a distended urinary bladder. Due to the hydronephrosis and concern of possible incomplete bladder emptying, she was seen in urology clinic on 01/12/25 for Preez catheter placement. Over the weekend she developed severe back pain which prompted her arrival in the ED. On arrival, she was afebrile and hemodynamically stable. Labs showing a leukocytosis of 17, creatinine 0.22, and sodium of 117. Urinalysis with 3+ blood, 3+ LE, 4+ bacteria, negative nitrite. Urine and blood cultures pending. She received a dose of ciprofloxacin in the ED and is on scheduled IV cefepime. Perez catheter in place. CT abd pelvis showing overall stable to minimally improved bilateral hydronephrosis, stable nephrolithiasis, no ureteral stones, Perez catheter within the bladder. She is admitted to medicine service. CT abd pelvis- 1. Overall stable to minimally improved bilateral hydroureteronephrosis the left renal pelvis measuring 3 cm in diameter from 3.8 cm previously. The right renal pelvis measures 1.9 cm in AP diameter from 2.3 cm previously. The previously noted nephrolithiasis and the inferior pole the left kidney in the right renal pelvis are stable and in morphologic appearance and position. Similar distention of the arteries without ureteral stones. 2. A Perez catheter is noted in the bladder. The bladder is decompressed limiting evaluation with diffuse wall thickening and perivesicular fat stranding. No bladder stones. Cystitis may be present. Patient seen at bedside today. Awake and resting in bed on arrival. No acute distress. Her mother is at bedside. Perez draining clear yellow urine. She reports back pain, right greater than left. Pain is currently well-managed with IV pain medication. Denies fever or chills. Reports some nausea, no vomiting. She did try to eat a few bites of scrambled eggs this morning but was feeling nauseous. Patient is well-known to the urology office, previously followed with Berta Kemp. She has also followed with [facility]. History of nephrolithiasis with PCNL in 2020. History of urinary retention/incomplete bladder emptying. History of vaginal prolapse. Allergies Allergy/AdvReac Type Severity Reaction Status Date / Time Sulfa (Sulfonamide Allergy Intermediate ITCHY Verified 01/28/24 13:24 Antibiotics) RASH, FLU-LIKE SYMPTOMS amoxicillin [From Augmentin] Allergy Rash Verified 01/28/24 13:24 clavulanic acid Allergy Rash Verified 01/28/24 13:24 [From Augmentin] metformin AdvReac Intermediate MODERATELY Verified 01/28/24 13:24 SEVERE NAUSEA Home Medications Medication Instructions Recorded Confirmed Type amitriptyline 10 mg tablet 30 mg PO HS 01/15/25 01/15/25 History atorvastatin 40 mg tablet 40 mg PO DAILY 01/15/25 01/15/25 History calcium 500 mg (as 1 tab PO DAILY 01/15/25 01/15/25 History carbonate)-vitamin D3 3.125 mcg (125 unit) tablet cetirizine 10 mg tablet 10 mg PO DAILY 01/15/25 01/15/25 History dicyclomine 10 mg capsule 10 mg PO ACHS PRN Abdominal Pain 01/15/25 01/15/25 History diphenoxylate-atropine 2.5 1 tab PO QID PRN dairrhea 01/15/25 01/15/25 History mg-0.025 mg tablet (Lomotil) fenofibrate 160 mg tablet 160 mg PO DAILY 01/15/25 01/15/25 History fluticasone propionate 50 2 spray intranasal DAILY 01/15/25 01/15/25 History mcg/actuation nasal spray,suspension iron,carbonyl 65 mg-vitamin C 125 1 tab PO BID 01/15/25 01/15/25 History mg tablet,delayed release (Vitron-C) lisinopril 5 mg tablet 5 mg PO DAILY 01/15/25 01/15/25 History omega 4-mpm-hjk-fish oil 1,000 mg 1 cap PO DAILY 01/15/25 01/15/25 History (120 mg-180 mg) capsule (Fish Oil) polyethylene glycol 3350 17 gram 17 g PO DAILY 01/15/25 01/15/25 History oral powder packet (Miralax) sitagliptin phosphate 100 mg 100 mg PO DAILY 01/15/25 01/15/25 History tablet (Januvia) solifenacin 10 mg tablet (Vesicare) 10 mg PO DAILY 01/15/25 01/15/25 History wheat dextrin 3 gram/3.5 gram oral 1 packet PO DAILY 01/15/25 01/15/25 History powder packet (Benefiber Clear Sugar Free(dextrin)) Patient History Medical History (Updated 01/16/25 @ 10:22 by BILL Harvey) Kidney stones GERD (gastroesophageal reflux disease) Spinal muscular atrophy type III UNABLE TO AMBULATE/USES POWERED WHEELCHAIR/CHAIR LIFT USED AT HOME Irregular heart beat NO CARDS Hyperlipidemia Hypertension Type 2 diabetes mellitus Muscular dystrophy Surgical History History of anesthesia reaction WAS TOLD NEVER TO GET A PARALYTIC ANESTHETIC History of cystoscopy History of lithotripsy History of esophagogastroduodenoscopy (EGD) History of colonoscopy History of tooth extraction H/O spinal fusion LUMBAR Family History Uncle Diabetes Hypertension Father Hypertension Bladder cancer Other Breast cancer Liver cancer Ovarian cancer Social History Smoking Status: Never smoker Second Hand Exposure: No; Do You Dip or Chew Tobacco: No; Hx Alcohol Use: No Hx Substance Use: No Preferred Language: Luxembourgish Communication Ability: Effective Visual Impairment: No Limitations Risk Control Consultant Required: No Beliefs That Will Affect Care: None marital status: Single Current Living Situation: Alone Feels Safe at Home: Yes Safety Concerns: Feels Safe At This Time Assistive Devices: Glasses, Mechanical Lift and Wheelchair Review of Systems Review of Systems: All systems reviewed & are unremarkable except as noted in HPI & below Physical Exam Constitutional: comfortable; no acute distress Respiratory: normal respiratory effort; no respiratory distress Skin: No visible rashes, lesions, or wounds noted. Color normal. Neurologic: awake Psychiatric: Orientation: alert, oriented x 3 and cooperative Genitourinary: Perez intact Results & Data Vital Signs (Past 12 Hours) Vital Signs Temp Pulse Pulse Resp BP BP Pulse Ox 01/16/25 09:32 107 H 01/16/25 09:32 01/16/25 07:50 36.7 C 111 H 12 129/78 97 01/16/25 03:00 01/16/25 02:37 36.2 C L 100 H 20 129/81 100 01/16/25 00:48 98 H 16 114/68 97 01/16/25 00:12 97 H 18 97 01/16/25 00:03 98 H 18 98 01/16/25 00:00 119/63 01/16/25 00:00 119/63 01/16/25 00:00 119/63 01/15/25 23:57 96 H 13 98 01/15/25 23:52 98 H 01/15/25 23:51 99 H 15 98 01/15/25 23:28 98 H 16 112/55 L 96 01/15/25 23:24 100 H 12 97 01/15/25 23:03 103 H 14 97 01/15/25 23:00 90/67 L 01/15/25 22:54 104 H 16 97 01/15/25 22:51 103 H 18 98 01/15/25 22:30 108/78 01/15/25 22:18 103 H 18 97 01/15/25 22:12 104 H 17 98 O2 Del Method 01/16/25 09:32 01/16/25 09:32 Room Air 01/16/25 07:50 Room Air 01/16/25 03:00 Room Air 01/16/25 02:37 Room Air 01/16/25 00:48 Room Air 01/16/25 00:12 01/16/25 00:03 01/16/25 00:00 01/16/25 00:00 01/16/25 00:00 01/15/25 23:57 01/15/25 23:52 01/15/25 23:51 01/15/25 23:28 Room Air 01/15/25 23:24 01/15/25 23:03 01/15/25 23:00 01/15/25 22:54 01/15/25 22:51 01/15/25 22:30 01/15/25 22:18 01/15/25 22:12 PG Care Time/CCT Total # of Minutes Spent Total Time Spent with Patient: Total time spent is greater than 50% in coordination of care (as documented) at patient's floor/unit and/or counseling patient: Coding Level of Care Code 53137 IN/OBS CONSULT LVL 3,45M Diagnoses Hydronephrosis N13.30 UTI (urinary tract infection) N30.00 Hematuria presence: without hematuria Urinary tract infection type: acute cystitis Back pain M54.9 Nephrolithiasis N20.0 Hyponatremia E87.1 (2) UTI (urinary tract infection) Hematuria presence: without hematuria Urinary tract infection type: acute cystitis Qualified Code(s): N30.00 - Acute cystitis without hematuria
--- NOTE | 2025-01-16 12:29 | Hospitalist Progress Note ---
Date of Service January 16, 2025 Assessment & Plan (1) Hyponatremia: Plan: 54-year-old female with past medical history significant for muscular dystrophy wheelchair bound, hyperlipidemia,diabetes, history of palpitations, history of kidney stones, anxiety who lives alone at home and has caregivers and mother checks on her comes in because of severe back pain and found to have UTI and hyponatremia. Patient states last she was placed on Perez by her u rologist because of the hydronephrosis. Last few days she has significant back pain. Was nauseous. Not able to eat much. Denies any fever or chills. No headache, no runny nose or sore throat. No cough. No chest pain or shortness of breath. No abdominal pain. Hemodynamics are okay. Hypoosmolar Hypovolemic Hyponatremia -Sodium 117, now improving -has had subacute poor satiety and nausea, no vomiting Plan: -nephrology consulted, appreciate recs -continue D5 fluid resuscitation to improve sodium but not overshoot -check AM cortisol, TSH, cystatin C to finish metabolic workup Complicated UTI -continue cefepime -urology consulted, appreciate recs Back pain -Possible from above -Pain control Bilateral hydroureteronephrosis -Recently placed Perez catheter by urology -Will consult urology for any further recommendations Diabetes -Sliding scale Hypertension -On lisinopril -We will monitor Hyperlipidemia -On fenofibrate and Lipitor Muscular dystrophy -Wheelchair-bound I spent a total of 55 minutes in direct patient care, including [id number] time with the patient and/or family, reviewing medical records, ordering and reviewing diagnostic tests, and coordinating care with other healthcare providers. This time includes: history taking, physical examination, medical decision making, counseling, ECG interpretation, imaging interpretation, lab interpretation, orders, and education, excluding time spent in the performance of separately billed services. Admission and Anticipated Discharge Date Admission Date: January 15, 2025 Subjective Patient seen and examined at bedside. Patient doing ok today. She states she has been having trouble keeping food down due to nausea that occurs as soon as food or drink hits her mouth. She states that is why she has been dehydrated. She is concerned about her low PO intake Review of Systems Review of Systems: CONSTITUTIONAL: Patient denies fevers, chills, sweats and weight changes. EYES: Patient denies any visual symptoms. EARS, NOSE, AND THROAT: No difficulties with hearing. No symptoms of rhinitis or sore throat. CARDIOVASCULAR: Patient denies chest pains, palpitations, orthopnea and paroxysmal nocturnal dyspnea. RESPIRATORY: No dyspnea on exertion, no wheezing or cough. GI: nausea : No urinary hesitancy or dribbling. No nocturia or urinary frequency. No abnormal urethral discharge. MUSCULOSKELETAL: No myalgias or arthralgias. NEUROLOGIC: No chronic headaches, no seizures. Patient denies numbness, tingling or weakness. PSYCHIATRIC: Patient denies problems with mood disturbance. No problems with anxiety. ENDOCRINE: No excessive urination or excessive thirst. DERMATOLOGIC: Patient denies any rashes or skin changes. Physical Exam Physical Exam: Gen: A&O 3 NAD HEENT: NCAT, EOMI, not icteric. External ears normal. No rhinorrhea. Moist mucous membranes. Neck: Supple, full range of motion, no observable masses, No meningeal sign. Lungs: No Respiratory distress. CV: RRR, no edema. Abdomen: Soft, nondistended, No rebound tenderness. MSK: No joint swelling, no redness. Skin: No rashes, petechiae, lesions. Normal color per patient. Neuro: noted diffuse weakness Psych: Appropriate for situation. Results & Data Results & Data Vital Signs (Past 12 Hours) Vital Signs Temp Pulse Pulse Resp BP Pulse Ox O2 Del Method 01/16/25 11:22 36.6 C 104 H 11 L 118/77 97 Room Air 01/16/25 09:32 107 H 01/16/25 09:32 Room Air 01/16/25 07:50 36.7 C 111 H 12 129/78 97 Room Air 01/16/25 03:00 Room Air 01/16/25 02:37 36.2 C L 100 H 20 129/81 100 Room Air 01/16/25 00:48 98 H 16 114/68 97 Room Air Laboratory Results -personally reviewed, sodium uptrending, was low at 117, now improved, leukocytosis of 17 noted in setting of UTI Medications Administered Ascorbic Acid (Ascorbic Acid 500 Mg Tab) 250 mg PO BID NICOLE Stop: 02/15/25 08:59 Last Admin: 01/16/25 07:44 Dose: 250 mg Documented By: NAKUL Atorvastatin Calcium (Atorvastatin 40 Mg Tab) 40 mg PO DAILY NICOLE Stop: 02/15/25 08:59 Last Admin: 01/16/25 07:41 Dose: 40 mg Documented By: NAKUL Calcium/Vitamin D (Calcium 600mg + Vit D 400 Iu Tab) 1 tab PO DAILY [facility] Stop: 02/15/25 08:59 Last Admin: 01/16/25 07:41 Dose: 1 tab Documented By: NAKUL Dicyclomine HCl (Dicyclomine Hcl 10 Mg Cap) 10 mg PO ACHS PRN PRN Reason: Abdominal Pain Stop: 02/15/25 02:24 Last Admin: 01/16/25 07:41 Dose: 10 mg Documented By: NAKUL Enoxaparin Sodium (Enoxaparin Inj 40 Mg/0.4 Ml Syr) 40 mg SQ Q24H [facility] Stop: 02/15/25 08:59 Last Admin: 01/16/25 07:45 Dose: 40 mg Documented By: NAKUL Ferrous Sulfate (Ferrous Sulfate 325 Mg Tab) 325 mg PO BID [facility] Stop: 02/15/25 08:59 Last Admin: 01/16/25 07:43 Dose: 325 mg Documented By: NAKUL Fluticasone Propionate (Fluticasone Propionate Na Spr 16 Gm Btl) 2 sprays CHANCE DAILY [facility] Stop: 02/15/25 08:59 Last Admin: 01/16/25 11:31 Dose: 2 sprays Documented By: NAKUL Hydromorphone HCl (Hydromorphone Inj 0.5 Mg/0.5 Ml Syr) 0.5 mg IV Q6H PRN PRN Reason: Severe Pain (Scale 7, 8, 9,10) Stop: 01/30/25 02:24 Last Admin: 01/16/25 07:40 Dose: 0.5 mg Documented By: NAKUL Cefepime HCl (Maxipime 2000mg) 2,000 mg in 20 mls @ 5 mls/min IV Q8H [facility]; Protocol Stop: 01/26/25 02:24 Last Admin: 01/16/25 11:11 Dose: 5 mls/min Documented By: Admin: 01/16/25 02:54 Dose: 5 mls/min Documented By: NEW Dextrose (D5w) 1,000 mls @ 300 mls/hr IV .Q3H20M [facility] Stop: 01/17/25 07:29 Last Admin: 01/16/25 11:11 Dose: 300 mls/hr Documented By: Infusion: 01/16/25 11:11 Dose: Infused Documented By: Admin: 01/16/25 07:37 Dose: 150 mls/hr Documented By: NAKUL Insulin Aspart (Insulin Aspart Per Unit Charge) 0 units SC ACHS NICOLE Stop: 02/15/25 07:29 Last Admin: 01/16/25 12:05 Dose: 5 units Documented By: NAKUL Co-signed By: ANGIE Admin: 01/16/25 08:06 Dose: Not Given Documented By: NAKUL Co-signed By: ABDULKADIR Lisinopril (Lisinopril 5 Mg Tab) 5 mg PO DAILY NICOLE Stop: 02/15/25 08:59 Last Admin: 01/16/25 07:45 Dose: 5 mg Documented By: NAKUL Ondansetron HCl (Ondansetron Inj 2 Mg/Ml 2 Ml Vial) 4 mg IV Q6H PRN PRN Reason: Nausea Stop: 02/15/25 02:24 Last Admin: 01/16/25 07:37 Dose: 4 mg Documented By: NAKUL Oxybutynin Chloride (Oxybutynin Chloride Xl 5 Mg Tabcr) 10 mg PO DAILY NICOLE Stop: 02/15/25 08:59 Last Admin: 01/16/25 07:42 Dose: 10 mg Documented By: NAKUL Psyllium Hydrophilic Mucilloid (Psyllium Or Guar Gum Fiber 4gm Packet) 4 gm PO DAILY NICOLE Stop: 02/15/25 08:59 Last Admin: 01/16/25 07:43 Dose: Not Given Documented By: NAKUL
[2025-01-16 15:45] LABS: Anion Gap 7 (3-11); Blood Urea Nitrogen 10 mg/dl (6-23); Calcium 7.3 mg/dl (8.6-10.3); Carbon Dioxide 18 mmol/L (21-32); Chloride 91 mmol/L (98-107); Creatinine Clr Calc Pharmacy 242.5 ml/min; Glucose 311 mg/dl (70-99(Fasting)); Potassium 3.1 mmol/L (3.5-5.1); Sodium 116 mmol/L (136-145)
[2025-01-16] MEDS ORDERED: PHARMACY GLYCEMIC MGMT CONSULT PRN (15:57)
[2025-01-16] MEDS: FENOFIBRATE NANOCRYSTALLIZED 145 MG TABLET PO SCH (16:00)
[2025-01-16] MEDS: POTASSIUM CHLORIDE CRTAB 20 MEQ TABCR PO STA (16:11)
[2025-01-16] MEDS: POTASSIUM CHLORIDE / WTR 10 MEQ/100 ML PLCT IV SCH ×2 (16:11→16:35)
--- NOTE | 2025-01-16 16:33 | Communication Note ---
Date of Service: January 16, 2025 serum sodium down to 116 and K 3.1 on 1500 labs -stopped D5W -hospitalist ordered 10 mEq K riders x 3 -will also give another 1/2 L NS with 20 mEq/L K at 150 mL hourly -repeat bmp at 2200 > suggest acid blower follow up and -replete K to goal of 4 IV and manage sNa: -if sNa under 116 call neph orthopaedic surgeon -if sNa 117-120, give another 1/2 L NS -if sNa 121-124 observe -if sNa > 124, give D5W at low rate 100 mL/hr for 1/2 L Plan reviewed w/ RN, RPh, Dr Vargas
[2025-01-16] MEDS: ACETAMINOPHEN 325 MG TAB PO PRN (16:59)
[2025-01-16] MEDS: POTASSIUM CHLORIDE 20 MEQ in SODIUM CHLORIDE 0.9% 500 ML IV STA (17:41)
[2025-01-16] MEDS: AMITRIPTYLINE HCL 10 MG TAB PO SCH (20:51)
[2025-01-17 00:10] LABS: Anion Gap 5 (3-11); Blood Urea Nitrogen 10 mg/dl (6-23); Calcium 7.2 mg/dl (8.6-10.3); Carbon Dioxide 18 mmol/L (21-32); Chloride 96 mmol/L (98-107); Creatinine Clr Calc Pharmacy 242.5 ml/min; Glucose 83 mg/dl (70-99(Fasting)); Potassium 4.9 mmol/L (3.5-5.1); Sodium 119 mmol/L (136-145)
[2025-01-17] MEDS: SODIUM CHLORIDE 0.9% 500 ML IV SCH (01:09)
[2025-01-17 06:05] LABS: Basophils # (auto) 0.05 K/uL (0.00-0.20); Basophils % (auto) 0.4 %; Eosinophils % (auto) 1.6 %; Hematocrit (blood only) 29.7 % (37.0-47.0); Hemoglobin 9.5 g/dl (12.0-16.0); Immature Granulocytes # (auto) 0.11 K/uL (0.01-0.20); Immature Granulocytes % (auto) 0.9 %; Lymphocytes # (auto) 1.97 K/uL (1.20-3.40); Lymphocytes % (auto) 15.6 %; Mean Corpuscular Hemoglobin 29.1 pg (25.0-34.0); Mean Corpuscular Volume 91.1 fL (80.0-100.0); Mean Platelet Volume 9.5 fL (9.4-12.4); Monocytes # (auto) 0.73 K/uL (0.11-0.59); Monocytes % (auto) 5.8 %; Neutrophils % (auto) 75.7 %; Platelet Count 344 K/uL (130-400); RDW Coefficient of Variation 13.4 % (11.5-14.5); Red Blood Count 3.26 M/uL (4.20-5.40); White Blood Count 12.66 K/ul (4.8-10.8)
[2025-01-17 06:35] LABS: Anion Gap 6 (3-11); Blood Urea Nitrogen 9 mg/dl (6-23); Calcium 7.2 mg/dl (8.6-10.3); Carbon Dioxide 18 mmol/L (21-32); Chloride 100 mmol/L (98-107); Creatinine Clr Calc Pharmacy 241.9 ml/min; Glucose 91 mg/dl (70-99(Fasting)); Magnesium 1.6 mg/dl (1.7-2.4); Potassium 4.5 mmol/L (3.5-5.1); Sodium 124 mmol/L (136-145)
--- NOTE | 2025-01-17 07:52 | Urology Progress Note ---
Date of Service January 17, 2025 Assessment & Plan (1) Hydronephrosis: (2) UTI (urinary tract infection): Plan Afebrile, normotensive, tachycardic at present Labs reviewed - Leukocytosis improved 16-12 today, creatinine stable Urine culture preliminary staphylococcus aureus Blood cultures prelim no growth x 24 hours Perez draining yellow urine CT A/P on admission shows stable to minimally improved bilateral hydronephrosis, stable nephrolithiasis without ureteral stones. She reported worsening pain today and underwent repeat CT imaging- Will await those results No plan for acute intervention at this time. Continue antibiotics and tailor per culture sensitivities Maintain Perez catheter Urology will follow along, please call with any questions/concerns or changes in status Update- Pt reassessed this afternoon with Dr. Reyes. Reports she is feeling better overall and pain is currently well controlled CT reviewed and shows a 10mm stone in the right renal pelvis with nonobstructing bilateral stones, bilateral hydronephrosis which is similar to the prior study, and urothelial thickening R>L with a few urothelial calcifications in the right renal pelvis and uteropelvic junction. The stones do not appear to be causing obstruction on imaging. Given her history of pelvic floor abnormality/prolapse and CT findings showing dilation of the bilateral ureters extending to the bladder, we suspect her hydronephrosis may be due to the prolapse possibly kinking the ureter. She is afebrile, normotensive, with a stable renal function. At present, she reports a significant improvement in her pain. No plan for intervention at this time. Continue supportive care and antibiotics. Maintain Perez catheter. She may benefit from a urogynecology evaluation given her history of severe prolapse. Urology will follow along, please call with any question/concerns or changes in patient's status Admission and Anticipated Discharge Date Admission Date: January 15, 2025 Supervising Physician Co-Signing Physician Notes saw Ms. Mora with [facility], offered a pelvic exam as I am concerned that her prolapse may be the primary feeder driver of her b/l hydronephrosis she refused an exam today Underlying concern is that with bilateral hydroureteronephrosis that extends to the level of the bladder and significant prolapse this implies the level of obstruction is extremely distal Female with prolapse prolapse becomes a diagnosis of exclusion Pessary or other modality of reducing the prolapse could be of benefit If she persists with symptoms (feeling much better right now), I would have consideration of having a gynecology or urogynecology consultation to determine appropriateness of pessary placement/etc I am very uncertain that ureteral stent placement will offer much benefit at this stage Subjective Pt seen at bedside today Awake and resting in bed on arrival No acute distress Perez draining yellow urine Pt with worsening pain today and just returned from a repeat CT No fevers Review of Systems Constitutional: as per Subjective / HPI Genitourinary: as per Subjective / HPI Physical Exam Constitutional: no acute distress Respiratory: no respiratory distress and no labored breathing Neurologic: awake Psychiatric: Orientation: alert and oriented x 3 Genitourinary: Perez intact Results & Data Vital Signs (Past 12 Hours) Vital Signs Temp Pulse Pulse Pulse Resp BP Pulse Ox 01/17/25 07:45 105 H 01/17/25 07:14 36.7 C 109 H 18 96/63 L 96 01/17/25 03:19 36.7 C 105 H 20 93/64 L 96 01/16/25 22:50 36.9 C 101 H 20 94/62 L 97 O2 Del Method 01/17/25 07:45 01/17/25 07:14 Room Air 01/17/25 03:19 Room Air 01/16/25 22:50 Room Air PG Care Time/CCT Total # of Minutes Spent Total Time Spent with Patient: Total time spent is greater than 50% in coordination of care (as documented) at patient's floor/unit and/or counseling patient: Coding Level of Care Code 71924 SUB INP/OBS CARE 3/50MIN Diagnoses Hydronephrosis N13.30 UTI (urinary tract infection) N30.00 Hematuria presence: without hematuria Urinary tract infection type: acute cystitis (2) UTI (urinary tract infection) Hematuria presence: without hematuria Urinary tract infection type: acute cystitis Qualified Code(s): N30.00 - Acute cystitis without hematuria
[2025-01-17] MEDS ORDERED: PHENYLEPHRINE 0.25% SUPP 1 EA PR PRN (08:06)
[2025-01-17] MEDS: MAGNESIUM SULFATE / D5W 1 GM/100 ML BAG IV SCH (08:12)
[2025-01-17] MEDS ORDERED: Nursing to Pharmacy Communication SCH (08:15)
--- NOTE | 2025-01-17 09:48 | Nephrology Progress Note ---
Date of Service January 17, 2025 Assessment & Plan (1) Hyponatremia: Plan: hypotonic hypovolemic hyponatremia based on response to resuscitation after 1.5 L on admission. Presented w/ severe hyponatremia at 117 at 1930 and corrected to 125 12 hrs later; aggressive D5W lowered Na back to 116 w/ some low K this AM 124 w/ K 4.5 Glucocorticoid deficiency excluded by elevated AM cortisol 35; TSH wnl target Na is no more than 130 tomorrow AM; already at 125 this morning. Complicated by patient intolerance to most solid food -control pain but avoid nsaids - no FR for now Follow-up pending urine and blood cultures > urine growing Staph -ordered repeat bmp, phos for midday - aiming for 1 g/kg protein intake daily both here and at home; consider trial of milkshake with protein powder or similar - hoping this will be workable in house; RD assistance appreciated Care coordinated w/ Dr Alicia lynn dietary aims, sodium targets, lab draws via TText; we are in agreement. Admission and Anticipated Discharge Date Admission Date: January 15, 2025 Physical Exam 2 Constitutional: well developed, well nourished, + frail appearing and cooperative; no acute distress Eyes: EOM intact bilaterally ENMT: Mouth: + dry oral mucous membranes Neck: no nuchal rigidity Respiratory: normal respiratory effort Auscultation: + diminished lung sounds Cardiovascular: Rate/Rhythm: + tachycardic Extremities: no edema Gastrointestinal (Abdomen): Inspection/Auscultation: normal bowel sounds P ercussion/Palpation: abdomen soft; abdomen nontender Skin: no rashes, warm and dry Psychiatric: Orientation: alert and oriented x 3 Results & Data Vital Signs (Past 12 Hours) Vital Signs Temp Pulse Pulse Pulse Resp BP Pulse Ox 01/17/25 07:45 105 H 01/17/25 07:14 36.7 C 109 H 18 96/63 L 96 01/17/25 03:19 36.7 C 105 H 20 93/64 L 96 01/16/25 22:50 36.9 C 101 H 20 94/62 L 97 O2 Del Method 01/17/25 07:45 01/17/25 07:14 Room Air 01/17/25 03:19 Room Air 01/16/25 22:50 Room Air Laboratory Results 01/17/25 05:18 01/17/25 05:18
[2025-01-17] MEDS: oxyCODONE HCL IR 5 MG TAB (IMMEDIATE RELEASE) PO PRN (09:56)
[2025-01-17] MEDS ORDERED: HYDROmorphone INJ 0.5 MG/0.5 ML SYR IV PRN (10:25)
[2025-01-17] MEDS: HYDROmorphone INJ 0.5 MG/0.5 ML SYR IV PRN (10:31)
--- NOTE | 2025-01-17 11:17 | Pharmacy Report ---
Pharmacy Glycemic Short Note 2 - Date of Service January 17, 2025 - Glycemic Short BSG Results (Last 24 hours): 01/16/25 01/16/25 01/16/25 11:24 14:59 16:15 Glucose 311 H* POC Glucose 236 H 296 H 01/16/25 01/16/25 01/17/25 20:32 22:51 05:18 Glucose 83 91 POC Glucose 106 H 01/17/25 07:13 Glucose POC Glucose 106 H OUTPATIENT ANTIDIABETIC REGIMEN: * Januvia 100 mg PO daily HbA1c: * 5.7% (01/16/25) ASSESSMENT: * 54 yo F admitted on 01/16/25 secondary to hyponatremia. Pharmacy has been consulted to assist with inpatient glycemic management. Patient is a Type 2 diabetic as an outpatient. Please refer to outpatient regimen and most recent HbA1c above. * Admission BSG was 134 mg/dL in serum and 98 mg/dL on POC. For hyponatremia, patient was on a D5W infusion which caused hyperglycemia (BSGs 311-236-296 mg/dL). Patient was started on Novolog based upon weight/stress of 2 at that time. * Received 9 units of Novolog yesterday while on D5W infusion. Clear liquid diet has been upgraded to full liquid diet today. D5W infusion was stopped yesterday afternoon and has not been resumed. * Fasting BSG this AM was 106 mg/dL. Will continue monitoring patient until diet is upgraded to include solids as well as to see if D5W infusion is resumed. Continue to hold basal insulin and utilize bolus only. PLAN FOR INPATIENT GLYCEMIC CONTROL: * Hold outpatient oral diabetes medications * Basal insulin * None * Bolus insulin * NovoLog per scale ACHS or Q6hrs while NPO * Goal Range: Low 110 mg/dL - High 140 mg/dL * Correction Factor: 40 mg/dL/unit * Nutritional / Prandial insulin per carb ratio of 1 unit per 15 grams CHO consumed
[2025-01-17] MEDS: OPTIRAY 320 100ml IV ONE (11:53)
--- NOTE | 2025-01-17 12:10 | Hospitalist Progress Note ---
Date of Service January 17, 2025 Assessment & Plan (1) Hyponatremia: Plan: 54-year-old female with past medical history significant for muscular dystrophy wheelchair bound, hyperlipidemia,diabetes, history of palpitations, history of kidney stones, anxiety who lives alone at home and has caregivers and mother checks on her comes in because of severe back pain and found to have UTI and hyponatremia. Patient states last she was placed on Perez by her u rologist because of the hydronephrosis. Last few days she has significant back pain. Was nauseous. Not able to eat much. Denies any fever or chills. No headache, no runny nose or sore throat. No cough. No chest pain or shortness of breath. No abdominal pain. Hemodynamics are okay. Hypoosmolar Hypovolemic Hyponatremia -Sodium 117, now improving -has had subacute poor satiety and nausea, no vomiting -overnight improved with aggressive hydration and monitoring Plan: -nephrology consulted, appreciate recs -hold fluids for now, will continue pending next sodium result -f/u prior drawn cystatin C -likely being made worse by complicated UTI and now 10mm renal stone Staph aureus Complicated UTI -continue cefepime, start vancomycin today until speciation of STaph aureus -urology consulted, appreciate recs -reengaged urology today given worsening right flank pain, has new 10 mm stone, urology reconsulted for consideration of stent placement vs. definitive management Back pain -Possible from above -Pain control -increased IV dosing of dilaudid and PO dosing of oxycodone -miralax scheduled daily and prn for bowel regiment Bilateral hydroureteronephrosis -Recently placed Perez catheter by urology -Will consult urology for any further recommendations Diabetes -Sliding scale Hypertension -On lisinopril -We will monitor Hyperlipidemia -On fenofibrate and Lipitor Muscular dystrophy -Wheelchair-bound I spent a total of 60 minutes in direct patient care, including [id number] time with the patient and/or family, reviewing medical records, ordering and reviewing diagnostic tests, and coordinating care with other healthcare providers. This time includes: history taking, physical examination, medical decision making, counseling, ECG interpretation, imaging interpretation, lab interpretation, orders, and education, excluding time spent in the performance of separately billed services. Admission and Anticipated Discharge Date Admission Date: January 15, 2025 Subjective Patient seen and examined at bedside. Patient not doing well today. States she is having severe pain in her RLQ that feels like kidney stone pain. States her current pain control is not sufficient. States this all began this morning. Also states she has been feeling sick with chills. Review of Systems Review of Systems: CONSTITUTIONAL: fatigue, chills EYES: Patient denies any visual symptoms. EARS, NOSE, AND THROAT: No difficulties with hearing. No symptoms of rhinitis or sore throat. CARDIOVASCULAR: Patient denies chest pains, palpitations, orthopnea and paroxysmal nocturnal dyspnea. RESPIRATORY: No dyspnea on exertion, no wheezing or cough. GI: nausea : No urinary hesitancy or dribbling. No nocturia or urinary frequency. No abnormal urethral discharge. MUSCULOSKELETAL: back pain and right flank pain NEUROLOGIC: No chronic headaches, no seizures. Patient denies numbness, tingling or weakness. PSYCHIATRIC: Patient denies problems with mood disturbance. No problems with anxiety. ENDOCRINE: No excessive urination or excessive thirst. DERMATOLOGIC: Patient denies any rashes or skin changes. Physical Exam Physical Exam: Gen: A&O 3 NAD, appears ill HEENT: NCAT, EOMI, not icteric. External ears normal. No rhinorrhea. Moist mucous membranes. Neck: Supple, full range of motion, no observable masses, No meningeal sign. Lungs: No Respiratory distress. CV: RRR, no edema. Abdomen: +CVA tenderness on right, right flank pain noted MSK: No joint swelling, no redness. Skin: No rashes, petechiae, lesions. Normal color per patient. Neuro: noted diffuse weakness Psych: Appropriate for situation. Results & Data Results & Data Vital Signs (Past 12 Hours) Vital Signs Temp Pulse Pulse Resp BP Pulse Ox O2 Del Method 01/17/25 12:03 36.8 C 108 H 18 122/78 97 Room Air 01/17/25 07:45 105 H 01/17/25 07:14 36.7 C 109 H 18 96/63 L 96 Room Air 01/17/25 03:19 36.7 C 105 H 20 93/64 L 96 Room Air Laboratory Results -personally reviewed, downtrending leukocytosis in setting of abx, sodium uptrending Diagnostic Findings Abdomen/Pelvis CT 01/17/25 10:25 CT abdomen pelvis wo/w con HISTORY: 54 years-old Female worsening RUQ/back abdominal pain acute right upper quadrant abdominal pain. COMPARISON: 01/15/2025 TECHNIQUE: Multiple axial CT images of the abdomen and pelvis were obtained with and without IV contrast. A dose lowering technique was used consistent with the principals of MARI. FINDINGS: Moderate coronary artery calcifications. Lung bases are clear. No pneumatosis or pneumoperitoneum. Unremarkable spleen, pancreas and adrenal glands. Mildly distended gallbladder with cholelithiasis. Unremarkable liver. Patency of the hepatic and portal veins. Symmetric enhancement of the kidneys. Bilateral hydroureteronephrosis, mild on the right and moderate on the left, similar to prior. Small cyst of the interpolar left kidney. 8 mm nonobstructing calculus of the inferior pole left kidney. There are a few nonobstructing calculi right kidney measuring up to 4 mm. 10 mm irregular calculus within the right renal pelvis. Additionally, there is urothelial thickening on the right greater than left renal collecting systems and ureters. There are ill-defined urothelial calcifications in the right renal pelvis and ureteropelvic junction. Decompressed bladder wall thickening and Perez catheter in place. Mild perivesicular stranding. Unremarkable uterus. There is no abdominal aortic aneurysm or lymphadenopathy. Soft tissue thickening within the perianal tissues. No bowel obstruction or bowel wall thickening. Postoperative changes of the spine with chronic changes. Diffuse muscle atrophy compatible with nonweightbearing status. IMPRESSION: 1. 10 mm calculus in the right renal pelvis with nonobstructing bilateral nephrolithiasis. 2. Mild right and moderate left hydroureteronephrosis is similar to the prior study with dilation of the ureters again seen extending to the level of the ureterovesicular junctions. 3. Urothelial thickening of the right greater left collecting systems and ureters. Additionally, there are subtle urothelial calcifications in the right renal pelvis and uteropelvic junction which raises the possibility of a urothelial lesion. Follow-up with urology recommended. 4. Cholelithiasis. 5. Chronic findings as above. ACT 112: Negative or not required by law. The above report was generated using voice recognition software. It may contain grammatical, syntax or spelling errors. Electronically signed by: Roosevelt Stevenson M.D. 01/17/2025 12:29 PM -personally reviewed CT abdomen/pelvis, has right and left hydronephrosis and 10mm calculus in right renal pelvis which appears to be new compared to prior study Medications Administered Acetaminophen (Acetaminophen 325 Mg Tab) 650 mg PO Q4H PRN PRN Reason: Pain or Fever Stop: 02/15/25 02:24 Last Admin: 01/17/25 06:15 Dose: 650 mg Documented By: Admin: 01/16/25 16:59 Dose: 650 mg Documented By: NAKUL Amitriptyline HCl (Amitriptyline Hcl 10 Mg Tab) 30 mg PO HS NICOLE Stop: 02/15/25 20:59 Last Admin: 01/16/25 20:51 Dose: 30 mg Documented By: NEW Ascorbic Acid (Ascorbic Acid 500 Mg Tab) 250 mg PO BID NICOLE Stop: 02/15/25 08:59 Last Admin: 01/17/25 08:13 Dose: Not Given Documented By: Admin: 01/16/25 20:56 Dose: Not Given Documented By: Admin: 01/16/25 07:44 Dose: 250 mg Documented By: NAKUL Atorvastatin Calcium (Atorvastatin 40 Mg Tab) 40 mg PO DAILY NICOLE Stop: 02/15/25 08:59 Last Admin: 01/17/25 08:15 Dose: 40 mg Documented By: Admin: 01/16/25 07:41 Dose: 40 mg Documented By: NAKUL Calcium/Vitamin D (Calcium 600mg + Vit D 400 Iu Tab) 1 tab PO DAILY [facility] Stop: 02/15/25 08:59 Last Admin: 01/17/25 08:13 Dose: Not Given Documented By: Admin: 01/16/25 07:41 Dose: 1 tab Documented By: NAKUL Cetirizine HCl (Cetirizine Hcl 10 Mg Tablet) 10 mg PO HS [facility] Stop: 02/15/25 08:59 Last Admin: 01/16/25 20:54 Dose: 10 mg Documented By: NEW Dicyclomine HCl (Dicyclomine Hcl 10 Mg Cap) 10 mg PO ACHS PRN PRN Reason: Abdominal Pain Stop: 02/15/25 02:24 Last Admin: 01/16/25 07:41 Dose: 10 mg Documented By: NAKUL Enoxaparin Sodium (Enoxaparin Inj 40 Mg/0.4 Ml Syr) 40 mg SQ Q24H NICOLE Stop: 02/15/25 08:59 Last Admin: 01/17/25 08:12 Dose: 40 mg Documented By: Admin: 01/16/25 07:45 Dose: 40 mg Documented By: NAKUL Fenofibrate (Fenofibrate Nanocrystallized 145 Mg Tablet) 145 mg PO DAILY [facility] Stop: 02/15/25 08:59 Last Admin: 01/17/25 08:14 Dose: 145 mg Documented By: Admin: 01/16/25 16:00 Dose: Not Given Documented By: NAKUL Ferrous Sulfate (Ferrous Sulfate 325 Mg Tab) 325 mg PO BID [facility] Stop: 02/15/25 08:59 Last Admin: 01/17/25 08:13 Dose: 325 mg Documented By: Admin: 01/16/25 20:55 Dose: Not Given Documented By: Admin: 01/16/25 07:43 Dose: 325 mg Documented By: NAKUL Fluticasone Propionate (Fluticasone Propionate Na Spr 16 Gm Btl) 2 sprays CHANCE DAILY [facility] Stop: 02/15/25 08:59 Last Admin: 01/17/25 08:12 Dose: 2 sprays Documented By: Admin: 01/16/25 11:31 Dose: 2 sprays Documented By: NAKUL Hydromorphone HCl (Hydromorphone Inj 0.5 Mg/0.5 Ml Syr) 1 mg IV Q4 PRN PRN Reason: Severe Pain (Scale 7, 8, 9,10) Stop: 01/31/25 10:24 Last Admin: 01/17/25 10:31 Dose: 1 mg Documented By: NAKUL Cefepime HCl (Maxipime 2000mg) 2,000 mg in 20 mls @ 5 mls/min IV Q8H [facility]; Protocol Stop: 01/26/25 02:24 Last Admin: 01/17/25 10:31 Dose: 5 mls/min Documented By: Admin: 01/17/25 02:24 Dose: 5 mls/min Documented By: Admin: 01/16/25 20:50 Dose: 5 mls/min Documented By: Admin: 01/16/25 11:11 Dose: 5 mls/min Documented By: Admin: 01/16/25 02:54 Dose: 5 mls/min Documented By: NEW Magnesium Sulfate/Dextrose (Magnesium Sulfate / D5w) 1 gm in 100 mls @ 50 mls/hr IV Q2H NICOLE Stop: 01/17/25 13:29 Last Admin: 01/17/25 12:11 Dose: 50 mls/hr Documented By: Infusion: 01/17/25 11:56 Dose: Infused Documented By: Admin: 01/17/25 09:56 Dose: 50 mls/hr Documented By: Infusion: 01/17/25 09:56 Dose: Infused Documented By: Admin: 01/17/25 08:12 Dose: 50 mls/hr Documented By: NAKUL Insulin Aspart (Insulin Aspart Per Unit Charge) 0 units SC ACHS NICOLE Stop: 02/15/25 07:29 Last Admin: 01/17/25 12:41 Dose: 4 units Documented By: NAKUL Co-signed By: ANGIE Admin: 01/17/25 08:52 Dose: Not Given Documented By: Admin: 01/16/25 20:55 Dose: Not Given Documented By: Admin: 01/16/25 17:25 Dose: 4 units Documented By: NAKUL Co-signed By: ABDULKADIR Admin: 01/16/25 12:05 Dose: 5 units Documented By: NAKUL Co-signed By: ANGIE Admin: 01/16/25 08:06 Dose: Not Given Documented By: NAKUL Co-signed By: ABDULKADIR Ondansetron HCl (Ondansetron Inj 2 Mg/Ml 2 Ml Vial) 4 mg IV Q6H PRN PRN Reason: Nausea Stop: 02/15/25 02:24 Last Admin: 01/16/25 07:37 Dose: 4 mg Documented By: NAKUL Oxybutynin Chloride (Oxybutynin Chloride Xl 5 Mg Tabcr) 10 mg PO DAILY NICOLE Stop: 02/15/25 08:59 Last Admin: 01/17/25 08:13 Dose: 10 mg Documented By: Admin: 01/16/25 07:42 Dose: 10 mg Documented By: NAKUL Oxycodone HCl (Oxycodone Hcl Ir 5 Mg Tab (Immediate Release)) 5 mg PO Q4 PRN PRN Reason: Pain Stop: 01/31/25 09:45 Last Admin: 01/17/25 09:56 Dose: 5 mg Documented By: NAKUL Psyllium Hydrophilic Mucilloid (Psyllium Or Guar Gum Fiber 4gm Packet) 4 gm PO DAILY NICOLE Stop: 02/15/25 08:59 Last Admin: 01/17/25 08:14 Dose: Not Given Documented By: Admin: 01/16/25 07:43 Dose: Not Given Documented By: NAKUL
--- NOTE | 2025-01-17 12:31 | CT Scan Report ---
CT abdomen pelvis wo/w con HISTORY: 54 years-old Female worsening RUQ/back abdominal pain acute right upper quadrant abdominal pain. COMPARISON: 01/15/2025 TECHNIQUE: Multiple axial CT images of the abdomen and pelvis were obtained with and without IV contr ast. A dose lowering technique was used consistent with the principals of MARI. FINDINGS: Moderate coronary artery calcifications. Lung bases are clear. No pneumatosis or pneumoperitoneum. Un remarkable spleen, pancreas and adrenal glands. Mildly distended gallbladder with cholelithiasis. Unr emarkable liver. Patency of the hepatic and portal veins. Symmetric enhancement of the kidneys. Bilateral hydroureteronephrosis, mild on the right and moderate on the left, similar to prior. Small cyst of the interpolar left kidney. 8 mm nonobstructing calculu s of the inferior pole left kidney. There are a few nonobstructing calculi right kidney measuring up to 4 mm. 10 mm irregular calculus within the right renal pelvis. Additionally, there is urothelial th ickening on the right greater than left renal collecting systems and ureters. There are ill-defined u rothelial calcifications in the right renal pelvis and ureteropelvic junction. Decompressed bladder w all thickening and Perez catheter in place. Mild perivesicular stranding. Unremarkable uterus. There is no abdominal aortic aneurysm or lymphadenopathy. Soft tissue thickening within the perianal tissues. No bowel obstruction or bowel wall thickening. Po stoperative changes of the spine with chronic changes. Diffuse muscle atrophy compatible with nonweig htbearing status. IMPRESSION: 1. 10 mm calculus in the right renal pelvis with nonobstructing bilateral nephrolithiasis. 2. Mild right and moderate left hydroureteronephrosis is similar to the prior study with dilation of the ureters again seen extending to the level of the ureterovesicular junctions. 3. Urothelial thickening of the right greater left collecting systems and ureters. Additionally, ther e are subtle urothelial calcifications in the right renal pelvis and uteropelvic junction which raise s the possibility of a urothelial lesion. Follow-up with urology recommended. 4. Cholelithiasis. 5. Chronic findings as above. ACT 112: Negative or not required by law. The above report was generated using voice recognition software. It may contain grammatical, syntax o r spelling errors. Electronically signed by: Roosevelt Stevenson M.D. 01/17/2025 12:29 PM
[2025-01-17] MEDS ORDERED: POLYETHYLENE (MIRALAX) 17 GM PACK PO PRN (12:53)
[2025-01-17] MEDS ORDERED: VANCOMYCIN CONSULT ACTIVE PRN (12:54)
[2025-01-17 12:55] LABS: Anion Gap 7 (3-11); Calcium 7.4 mg/dl (8.6-10.3); Carbon Dioxide 19 mmol/L (21-32); Chloride 96 mmol/L (98-107); Potassium 3.7 mmol/L (3.5-5.1); Sodium 122 mmol/L (136-145)
[2025-01-17 13:02] LABS: Blood Urea Nitrogen 8 mg/dl (6-23); Creatinine Clr Calc Pharmacy 241.9 ml/min; Glucose 169 mg/dl (70-99(Fasting)); Phosphorus 1.1 mg/dl (2.5-4.9)
[2025-01-17] MEDS ORDERED: SODIUM PHOSPHATE 3 MMOL/1 ML INFUSION IV STA (13:07)
[2025-01-17] MEDS: VANCOMYCIN HCL 1,250 MG in SODIUM CHLORIDE 0.9% 250 ML IV ONE (13:28)
[2025-01-17] MEDS: POLYETHYLENE (MIRALAX) 17 GM PACK PO SCH (13:32)
[2025-01-17] MEDS: CALCIUM GLUCONATE 1,000 MG/60 ML BAG IV STA (13:52)
--- NOTE | 2025-01-17 13:52 | Communication Note ---
Date of Service: January 17, 2025 Repeat labs noon > Na 122; K 3.7; creat <0.2; phos 1.1; mag 1.6 >>sodium phosphate 24 mmol >>1/2 L D5W w/ sodium bicarb 150 mEq/L and K 20 mEq >>repeat bmp, phos 90 min after above at 1800 -updated RN and hospitalist
[2025-01-17] MEDS ORDERED: SODIUM PHOSPHATE 3 MMOL/1 ML 5 ML VIAL IV ONE (13:53)
[2025-01-17] MEDS: POTASSIUM CHLORIDE 20 MEQ in SODIUM CHLORIDE 0.9% 500 ML IV STA (13:57)
--- NOTE | 2025-01-17 14:00 | Pharmacy Report ---
Pharmacy PK ABX Note - Date of Service January 17, 2025 - Assessment and Plan Assessment 54 year old F receiving Cefepime and Vancomycin for treatment of UTI. * Day #1 of antimicrobial therapy. * Afebrile. Leukocytosis improving, WBC 12.7k today. Blood cultures with no growth to date. Preliminary urine culture growing Staph aureus, sensitivities pending. * SCr < 0.2 mg/dL. Likely falsely low due to muscular dystrophy. Will order an early level to assess vancomycin dose given unsure of real renal fxn. Plan Vancomycin * Loading dose: 1250 mg IV x 1 * Maintenance dose: 1000 mg IV every 8 hours * Regimen is predicted to achieve target AUC/DHRUV of 400-600 mg/L.hr * Random level ordered for: 01/18/25 Cefepime * 2000 mg IV every 8 hours Pharmacy will continue to follow and will adjust dose/frequency as necessary. Thank you. Pharmacy has transitioned to AUC monitoring for vancomycin. AUC/DHRUV is the preferred PK/PD target and is associated with decreased risk of nephrotoxicity compared to traditional trough targets.
[2025-01-17] MEDS: SODIUM PHOSPHATE 24 MMOL in SODIUM CHLORIDE 0.9% 500 ML IV ONE (14:05)
[2025-01-17] MEDS: SODIUM BICARBONATE IV STA (14:35)
[2025-01-17] MEDS: POTASSIUM CHLORIDE IV STA (14:35)
[2025-01-17] MEDS: DEXTROSE 5% IV STA (14:35)
[2025-01-17] MEDS: lisinopril 5 MG TAB PO SCH (20:33)
[2025-01-17] MEDS: VANCOMYCIN HCL 1,000 MG/270 ML BAG IV SCH (21:24)
[2025-01-17 22:01] LABS: Anion Gap 7 (3-11); Blood Urea Nitrogen 8 mg/dl (6-23); Calcium 7.3 mg/dl (8.6-10.3); Carbon Dioxide 27 mmol/L (21-32); Chloride 96 mmol/L (98-107); Creatinine Clr Calc Pharmacy 241.9 ml/min; Glucose 172 mg/dl (70-99(Fasting)); Phosphorus 1.7 mg/dl (2.5-4.9); Potassium 2.8 mmol/L (3.5-5.1); Sodium 130 mmol/L (136-145)
[2025-01-18] MEDS: VANCOMYCIN LEVEL ONE (05:50)
[2025-01-18 06:07] LABS: Hematocrit (blood only) 26.9 % (37.0-47.0); Hemoglobin 8.7 g/dl (12.0-16.0); Mean Corpuscular Hemoglobin 29.1 pg (25.0-34.0); Mean Corpuscular Hgb Conc 32.3 g/dL (32.0-36.0); Mean Platelet Volume 9.9 fL (9.4-12.4); Platelet Count 339 K/uL (130-400); RDW Coefficient of Variation 12.8 % (11.5-14.5); Red Blood Count 2.99 M/uL (4.20-5.40); White Blood Count 12.29 K/ul (4.8-10.8)
[2025-01-18 06:31] LABS: Alanine Aminotransferase 34 U/L (7-52); Albumin Level 2.7 gm/dl (3.4-5.0); Alkaline Phosphatase 50 U/L (34-104); Anion Gap 7 (3-11); Aspartate Aminotransferase 37 U/L (13-39); Bilirubin,Total 0.5 mg/dl (0.2-1.0); Blood Urea Nitrogen 10 mg/dl (6-23); Calcium 7.1 mg/dl (8.6-10.3); Carbon Dioxide 28 mmol/L (21-32); Chloride 95 mmol/L (98-107); Creatinine Clr Calc Pharmacy 243.5 ml/min; Globulin 2.7 gm/dl (2.5-4.0); Glucose 115 mg/dl (70-99(Fasting)); Magnesium 1.9 mg/dl (1.7-2.4); Phosphorus 1.5 mg/dl (2.5-4.9); Potassium 2.9 mmol/L (3.5-5.1); Sodium 130 mmol/L (136-145); Total Protein 5.4 gm/dl (6.0-8.3)
[2025-01-18] MEDS ORDERED: POTASSIUM PHOS 3 MMOL/1 ML INFUSION IV STA (06:33)
[2025-01-18] MEDS: POTASSIUM CHLORIDE CRTAB 20 MEQ TABCR PO STA (06:43)
[2025-01-18] MEDS: POTASSIUM PHOSPHATE 40 MMOL in SODIUM CHLORIDE 0.9% 1,000 ML IV ONE (07:33)
[2025-01-18] MEDS: oxyCODONE HCL IR 5 MG TAB (IMMEDIATE RELEASE) PO PRN (07:57)
--- NOTE | 2025-01-18 09:01 | Nephrology Progress Note ---
Date of Service January 18, 2025 Assessment & Plan (1) Hyponatremia: Plan: hypotonic hypovolemic hyponatremia based on response to resuscitation after 1.5 L on admission. Presented w/ severe hyponatremia at 117 at 1930 and corrected to 125 12 hrs later; aggressive D5W lowered Na back to 116 w/ some low K. This AM sNa to 130, appropriate rate of correction. this AM 124 w/ K 4.5 Glucocorticoid deficiency excluded by elevated AM cortisol 35; TSH wnl target Na is no more than 136 tomorrow AM. Complicated by patient intolerance to most solid food though her appetite is improving -control pain but avoid nsaids - no FR for now - allergy med on hold; will also hold ozybutynin Follow-up pending urine and blood cultures > urine growing Staph; on vanco - agree w/ repeat bmp, phos for later today after repletion; RN will retime to draw 60-90 minutes after infusions complete > needs time to get K phos plus (just ordered) 1LNS w/ 40 mEq K; today phos 1.5; K 2.9 > recheck primarily for phos, k - aiming for 1 g/kg protein intake daily both here and at home; consider trial of milkshake with protein powder or similar - hoping this will be workable in house; RD assistance appreciated Care coordinated w/ Dr Tank lynn dietary aims, sodium targets, lab draws, med changes in person; we are in agreement. Admission and Anticipated Discharge Date Admission Date: January 15, 2025 Subjective c/o marked discomfort in bed and leg cramps/spasms. no sob, no n/v > states eating better/appetite dieter; denies edema or diarrhea; c/o marked dry mouth today asking to hold allergy meds Review of Systems 2 Review of Systems: All systems reviewed & are unremarkable except as noted in Subjective Physical Exam 2 Constitutional: well developed, well nourished, + frail appearing and cooperative; no acute distress Eyes: EOM intact bilaterally ENMT: Mouth: + dry oral mucous membranes Neck: no nuchal rigidity Respiratory: normal respiratory effort Auscultation: + diminished lung sounds Cardiovascular: Rate/Rhythm: + tachycardic Extremities: no edema Gastrointestinal (Abdomen): Inspection/Auscultation: normal bowel sounds P ercussion/Palpation: abdomen soft; abdomen nontender Skin: no rashes, warm and dry Psychiatric: Orientation: alert and oriented x 3 Results & Data Vital Signs (Past 12 Hours) Vital Signs Temp Pulse Pulse Resp BP BP Pulse Ox 01/18/25 07:40 94/60 L 01/18/25 07:21 37.0 C 105 H 20 84/66 L 98 01/18/25 03:16 36.8 C 104 H 16 88/56 L 97 01/18/25 01:48 110 H 01/17/25 22:59 37.3 C 112 H 16 101/64 94 O2 Del Method 01/18/25 07:40 01/18/25 07:21 Room Air 01/18/25 03:16 Room Air 01/18/25 01:48 01/17/25 22:59 Room Air Laboratory Results 01/18/25 05:25 01/18/25 05:25
[2025-01-18 09:08] LABS: Cystatin C 1.04 mg/L (0.52-1.17)
[2025-01-18] MEDS: POTASSIUM CHLORIDE 40 MEQ in SODIUM CHLORIDE 0.9% 1,000 ML IV SCH (09:45)
--- NOTE | 2025-01-18 10:06 | Urology Progress Note ---
Date of Service January 18, 2025 Assessment & Plan (1) Hydronephrosis: (2) UTI (urinary tract infection): Plan Afebrile, mildly hypotensive and tachycardic at present Labs reviewed - WBCs 12.29, creatinine stable Urine culture preliminary staphylococcus aureus Blood cultures prelim no growth x 48 hours Perez draining yellow urine CT imaging reviewed and showing bilateral hydroureteronephrosis that extends to the level of the bladder. Bilateral kidney stones appear stable and do not appear to be causing obstruction. 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 At the present time she is feeling much better and pain is well controlled. It is uncertain that ureteral stent placement would offer much benefit. She may benefit from gynecology or urogynecology evaluation to determine appropriateness of pessary placement/etc. Continue supportive care and antibiotic therapy. Maintain Perez catheter. No plan for acute intervention. We will arrange outpatient follow-up with our service. Urology will follow peripherally, please call with any question/concerns or changes in patient's status Admission and Anticipated Discharge Date Admission Date: January 15, 2025 Subjective Pt seen at bedside today Awake and resting in bed on arrival No acute distress Perez draining yellow urine Reports she is feeling better overall and her pain is currently well controlled No fevers She is eager to go home Review of Systems Constitutional: as per Subjective / HPI Genitourinary: as per Subjective / HPI Physical Exam Constitutional: no acute distress Respiratory: no respiratory distress and no labored breathing Neurologic: awake Psychiatric: Orientation: alert and oriented x 3 Genitourinary: Perez intact Results & Data Vital Signs (Past 12 Hours) Vital Signs Temp Pulse Pulse Resp BP BP Pulse Ox 01/18/25 07:40 94/60 L 01/18/25 07:21 37.0 C 105 H 20 84/66 L 98 01/18/25 03:16 36.8 C 104 H 16 88/56 L 97 01/18/25 01:48 110 H 01/17/25 22:59 37.3 C 112 H 16 101/64 94 O2 Del Method 01/18/25 07:40 01/18/25 07:21 Room Air 01/18/25 03:16 Room Air 01/18/25 01:48 01/17/25 22:59 Room Air PG Care Time/CCT Total # of Minutes Spent Total Time Spent with Patient: Total time spent is greater than 50% in coordination of care (as documented) at patient's floor/unit and/or counseling patient: Coding Level of Care Code 46049 SUB INP/OBS CARE 2/35MIN Diagnoses Hydronephrosis N13.30 UTI (urinary tract infection) N30.00 Hematuria presence: without hematuria Urinary tract infection type: acute cystitis (2) UTI (urinary tract infection) Hematuria presence: without hematuria Urinary tract infection type: acute cystitis Qualified Code(s): N30.00 - Acute cystitis without hematuria
[2025-01-18] MEDS: CEROVITE ADV FORMULA TAB PO SCH (10:12)
--- NOTE | 2025-01-18 11:43 | Pharmacy Report ---
Pharmacy Glycemic Short Note 2 - Date of Service January 18, 2025 - Glycemic Short BSG Results (Last 24 hours): 01/17/25 01/17/25 01/17/25 12:16 16:14 20:36 Glucose 169 H POC Glucose 258 H 175 H 01/17/25 01/18/25 01/18/25 21:20 05:25 07:20 Glucose 172 H 115 H POC Glucose 113 H 01/18/25 11:14 Glucose POC Glucose 194 H OUTPATIENT ANTIDIABETIC REGIMEN: * Januvia 100 mg PO daily HbA1c: * 5.7% (01/16/25) ASSESSMENT: 01/18: * Chante received 9 units of insulin on Thursday and 11 units of insulin yesterday, all bolus both days. BSGs have ranged from 98-296 mg/dL. * Diet has been advanced to T2DM, patient tolerated breakfast well. D5W did infuse again yesterday evening causing a dinner high BSG. Fluids now changed to saline. Abx have been de-escalated to Cefazolin. * Fasting BSG remains well controlled this AM at 113 mg/dL. Continue to hold basal insulin. * Novolog will be tightened at lunchtime today. 01/16: * 54 yo F admitted on 01/16/25 secondary to hyponatremia. Pharmacy has been consulted to assist with inpatient glycemic management. Patient is a Type 2 diabetic as an outpatient. Please refer to outpatient regimen and most recent HbA1c above. * Admission BSG was 134 mg/dL in serum and 98 mg/dL on POC. For hyponatremia, patient was on a D5W infusion which caused hyperglycemia (BSGs 311-236-296 mg/dL). Patient was started on Novolog based upon weight/stress of 2 at that time. * Received 9 units of Novolog yesterday while on D5W infusion. Clear liquid diet has been upgraded to full liquid diet today. D5W infusion was stopped yesterday afternoon and has not been resumed. * Fasting BSG this AM was 106 mg/dL. Will continue monitoring patient until diet is upgraded to include solids as well as to see if D5W infusion is resumed. Continue to hold basal insulin and utilize bolus only. PLAN FOR INPATIENT GLYCEMIC CONTROL: * Hold outpatient oral diabetes medications * Basal insulin * None * Bolus insulin * NovoLog per scale ACHS or Q6hrs while NPO * Goal Range: Low 110 mg/dL - High 140 mg/dL * Correction Factor: 30 mg/dL/unit * Nutritional / Prandial insulin per carb ratio of 1 unit per 10 grams CHO consumed
--- NOTE | 2025-01-18 12:18 | Hospitalist Progress Note ---
Date of Service January 18, 2025 Assessment & Plan (1) Hyponatremia: Plan: 54-year-old female with past medical history significant for muscular dystrophy wheelchair bound, hyperlipidemia,diabetes, history of palpitations, history of kidney stones, anxiety who lives alone at home and has caregivers and mother checks on her comes in because of severe back pain and found to have UTI and hyponatremia. Patient states last she was placed on Perez by her u rologist because of the hydronephrosis. Last few days she has significant back pain. Was nauseous. Not able to eat much. Denies any fever or chills. No headache, no runny nose or sore throat. No cough. No chest pain or shortness of breath. No abdominal pain. Hemodynamics are okay. Hypoosmolar Hypovolemic Hyponatremia -Admitting Sodium 117, now improving -has had subacute poor satiety and nausea, no vomiting Plan: -nephrology consulted, appreciate recs, no FR. -f/u prior drawn cystatin C -likely being made worse by complicated UTI and now 10mm renal stone Staph aureus Complicated UTI -Was on cefepime 01/16 and vanc 01/17 --> UCx reviewed, switch to cefazolin 01/18. -Uro on board, no plan for ac intervention, concern prolapse is likely cpr ambulance driver of her b/l hydronephrosis, and recommends gynecology or gynecourology eval -f/u w/ uro on dc. Back pain -Possible from above -Pain control prn, pt reports better pain mx. c/w bowel regimen. Bilateral hydroureteronephrosis -Recently placed Perez catheter by urology -Uro evaled, recommends also gynecology eval (see above) - will need gyne eval as OP, will touch base with gynecology onshore diver today via TT. texted, awaiting reply. Diabetes -Sliding scale Hypertension -On lisinopril -We will monitor Hyperlipidemia -On fenofibrate and Lipitor Muscular dystrophy -Wheelchair-bound Admission and Anticipated Discharge Date Admission Date: January 15, 2025 Subjective Patient was seen and examined at bedside. Patient was lying in bed, on room air, NAD, resting comfortably. Patient's mother and aunt at bedside were also updated plan of care. Patient reports her appetite has been improving, reports no belly pain and no back pain now. Reports feeling better. Discussed with nephrology, due to electrolyte abnormalities patient will need at least next 1 to 2 days. Patient denies any blood in stool, has black stool because she states she is on iron tablet. FOBT was obtained and negative for blood. Will continue to monitor her H&H closely. Patient denies any lightheadedness or dizziness or chest pain. Physical Exam Physical Exam: Gen: A&O 3 NAD, on RA. HEENT: NCAT, EOMI, not icteric. External ears normal. No rhinorrhea. Moist mucous membranes. Neck: Supple, full range of motion, no observable masses, No meningeal sign. Lungs: No Respiratory distress. CV: RRR, tachycardic in 100s. no edema. Abdomen: No CVA tenderness on right, non tender. MSK: No joint swelling, no redness. Skin: No rashes, petechiae, lesions. Normal color per patient. Neuro: noted diffuse weakness Psych: Appropriate for situation. Results & Data Results & Data Vital Signs (Past 12 Hours) Vital Signs Temp Pulse Pulse Resp BP BP Pulse Ox 01/18/25 11:01 37.1 C 113 H 18 89/53 L 98 01/18/25 07:40 94/60 L 01/18/25 07:21 37.0 C 105 H 20 84/66 L 98 01/18/25 03:16 36.8 C 104 H 16 88/56 L 97 01/18/25 01:48 110 H O2 Del Method 01/18/25 11:01 Room Air 01/18/25 07:40 01/18/25 07:21 Room Air 01/18/25 03:16 Room Air 01/18/25 01:48
[2025-01-18 13:28] LABS: Phosphorus 1.5 mg/dl (2.5-4.9)
[2025-01-18 13:55] LABS: Potassium 4.9 mmol/L (3.5-5.1)
[2025-01-18] MEDS: ceFAZolin 2000MG 2,000 MG/15 ML SYR IV SCH (17:29)
[2025-01-18 19:25] LABS: Hematocrit (blood only) 26.3 % (37.0-47.0); Hemoglobin 8.4 g/dl (12.0-16.0)
[2025-01-18 19:41] LABS: BUN Creatinine Ratio 28.6 (10-20); Calcium 7.3 mg/dl (8.6-10.3); Creatinine Clr Calc Pharmacy 173.9 ml/min; Potassium 5.3 mmol/L (3.5-5.1)
[2025-01-18] MEDS: SODIUM CHLORIDE 0.9% 1,000 ML IV ONE (19:59)
--- NOTE | 2025-01-18 23:56 | Communication Note ---
Date of Service: January 18, 2025 Notified by RN of serum potassium of 5.3. AP Hyperkalemia Change current NSS IVF with potassium to plain NSS IVF Hold lisinopril for now
[2025-01-19 06:15] LABS: Hematocrit (blood only) 25.1 % (37.0-47.0); Hemoglobin 8.1 g/dl (12.0-16.0); Mean Corpuscular Hemoglobin 29.3 pg (25.0-34.0); Mean Corpuscular Hgb Conc 32.3 g/dL (32.0-36.0); Mean Corpuscular Volume 90.9 fL (80.0-100.0); Mean Platelet Volume 9.7 fL (9.4-12.4); Platelet Count 307 K/uL (130-400); RDW Coefficient of Variation 14.8 % (11.5-14.5); RDW Standard Deviation 49.1 fL (36.4-46.3); Red Blood Count 2.76 M/uL (4.20-5.40); White Blood Count 9.27 K/ul (4.8-10.8)
[2025-01-19 06:56] LABS: Alanine Aminotransferase 33 U/L (7-52); Albumin Level 2.6 gm/dl (3.4-5.0); Alkaline Phosphatase 54 U/L (34-104); Anion Gap 3 (3-11); Aspartate Aminotransferase 45 U/L (13-39); Bilirubin,Total 0.3 mg/dl (0.2-1.0); Blood Urea Nitrogen 6 mg/dl (6-23); Calcium 7.4 mg/dl (8.6-10.3); Carbon Dioxide 29 mmol/L (21-32); Chloride 103 mmol/L (98-107); Creatinine Clr Calc Pharmacy 246.5 ml/min; Globulin 2.6 gm/dl (2.5-4.0); Glucose 97 mg/dl (70-99(Fasting)); Magnesium 1.6 mg/dl (1.7-2.4); Phosphorus < 1.0 mg/dl (2.5-4.9); Potassium 4.1 mmol/L (3.5-5.1); Sodium 135 mmol/L (136-145); Total Protein 5.2 gm/dl (6.0-8.3)
--- NOTE | 2025-01-19 07:18 | Communication Note ---
Date of Service: January 19, 2025 Contacted by RN re phos <1; mag 1.6 c/w ongoing refeeding syndrome Phos repletion high clinical priority ordered -24 mmol sodium phos IV stat (runs over about 4 hr) -neutraphos tablets 2 tabs q4hr x 4 doses -repeat bmp, phos, MARIE indices for noon or to be retimed to be done an hour after IV phos complete pt w/ issues taking po earlier this admission but will need to take po as able to move this repletion along
[2025-01-19] MEDS: SODIUM PHOSPHATE 24 MMOL in SODIUM CHLORIDE 0.9% 500 ML IV STA (07:29)
[2025-01-19] MEDS: POT PHOSPHATE MONOBASIC W/ SOD TAB PO SCH (07:34)
[2025-01-19] MEDS: MAGNESIUM SULFATE / D5W 1 GM/100 ML BAG IV SCH (08:01)
[2025-01-19 08:37] LABS: Iron 25 mcg/dl (35-150); Total Iron Binding Cap Calc 179 mcg/dl (250-450); Transferrin 128 mg/dl (200-360); Transferrin (FE) Percent Satur 14 % (15-50)
[2025-01-19 09:21] LABS: Folate (Folic Acid),Ser orPlas 11.48 ng/ml (>5.38)
--- NOTE | 2025-01-19 10:01 | Nephrology Progress Note ---
Date of Service January 19, 2025 Assessment & Plan (1) Refeeding syndrome: Plan: concern for this since as her appetite/po intake has rebounded phos has dropped consistently; if present, it's mild so far though still serious phos <1 this am despite aggressive repletion yesterday; mag 1.6 >> no e/o HF or respiratory failure; no e/o neurologic changes (seizure/delirium) this AM ordered -24 mmol IV phos (6 mmol/hr max per hospital policy periph IV; 7.5 mmol/hr max centrally) -neutraphos tabs 2 tabs q4hrs x 4 doses -repeat bmp + MARIE indices timed for early PM about 1 hr after finishing above repletion >>> repeat phos 3.2 -start thiamine 100 mg daily IV x 3 days -ordered studies to evaluate GI versus renal phos losses >> these unfortunately take about a week to complete but may be helpful at follow up visits phos repletion takes priority over mag repletion ? consider PPN or / and calorie count midday labs to eval also for HF along w/ CXR given more hypotension past few days, no recent TTE; also r/o paraproteinemia >>>>>>>>>>no e/o HF or vol OL; cont to follow BP; paraproteinemia w/u ordered d/t ? 14 gm proteinuria <>doubt ratio correct given her incredibly low serum creat reflecting low mmass Care coordinated w/ Dr Tank lynn dietary aims, sodium targets, lab draws by TText along w/ med changes; we are in agreement. (2) Hyponatremia: Plan: hypotonic hypovolemic hyponatremia based on response to resuscitation after 1.5 L on admission. Presented w/ severe hyponatremia at 117 at 1930 and corrected to 125 12 hrs later; aggressive D5W lowered Na back to 116 w/ some low K. This AM sNa to 135, appropriate rate of correction. this AM 124 w/ K 4.5 Glucocorticoid deficiency excluded by elevated AM cortisol 35; TSH wnl target Na is wnl tomorrow AM. Complicated by patient intolerance to most solid food though her appetite is improving -control pain but avoid nsaids - no FR for now - allergy med on hold; will also cont to hold oxybutynin Follow-up pending urine and blood cultures > urine growing Staph; on vanco - maintain eukalemia >> K removed from IVF last evening - aiming for 1 g/kg protein intake daily both here and at home; consider trial of milkshake with protein powder or similar - hoping this will be workable in house; RD assistance appreciated Admission and Anticipated Discharge Date Admission Date: January 15, 2025 Subjective no interval events clinically; eating 100% per RN; phos <1 this am; no edema, no n/v, no sob, no MS changes Review of Systems 2 Review of Systems: All systems reviewed & are unremarkable except as noted in Subjective Physical Exam 2 Constitutional: well developed, well nourished, + frail appearing and cooperative; no acute distress Eyes: EOM intact bilaterally ENMT: Mouth: + dry oral mucous membranes Neck: no nuchal rigidity Respiratory: normal respiratory effort Auscultation: + diminished lung sounds Cardiovascular: Rate/Rhythm: + tachycardic Extremities: no edema Gastrointestinal (Abdomen): Inspection/Auscultation: normal bowel sounds P ercussion/Palpation: abdomen soft; abdomen nontender Skin: no rashes, warm and dry Psychiatric: Orientation: alert and oriented x 3 Results & Data Vital Signs (Past 12 Hours) Vital Signs Temp Pulse Pulse Resp BP Pulse Ox O2 Del Method 01/19/25 07:27 37.6 C H 69 18 100/68 94 Room Air 01/18/25 23:56 124 H 01/18/25 23:13 37.3 C 117 H 21 98/66 L 95 Room Air Laboratory Results 01/19/25 05:40 01/19/25 05:40
[2025-01-19] MEDS: THIAMINE HCL 100 MG in SYRINGE 9 ML IV SCH (10:45)
--- NOTE | 2025-01-19 10:52 | XRay Report ---
XR chest 1V portable CLINICAL HISTORY: hypotension, refeeding > eval for HF COMPARISON STUDY: 01/15/2025 FINDINGS: Single view chest is unchanged. There is no acute process identified. Chronic obscuration o f the cardiac apex is redemonstrated. There is no airspace opacity or pleural effusion. The heart and pulmonary vascularity are unremarkable. There is no radiographic evidence of heart failure. IMPRESSION: Stable exam; no acute process identified. ACT 112: Negative or not required by law. Electronically signed by: Chante Leal M.D. 01/19/2025 10:50 AM
[2025-01-19 11:30] LABS: Creatinine Urine Random 7.5 mg/dl; Protein Creatinine Ratio Urine 14.5 (0-0.2); Total Protein Urine Random 108.7 mg/dl (0-11.9)
--- NOTE | 2025-01-19 11:58 | Pharmacy Report ---
Pharmacy Glycemic Short Note 2 - Date of Service January 19, 2025 - Glycemic Short BSG Results (Last 24 hours): 01/18/25 01/18/25 01/18/25 16:09 19:15 20:28 Glucose 161 H POC Glucose 168 H 139 H 01/19/25 01/19/25 01/19/25 05:40 07:24 11:30 Glucose 97 POC Glucose 95 165 H OUTPATIENT ANTIDIABETIC REGIMEN: * Januvia 100 mg PO daily * Omnipod Insulin Pump + G7; TDD ~116 units (62 units basal)- see nurse informatics educator note for further parameters HbA1c: * 5.7% (01/16/25) ASSESSMENT: 01/19 * Fasting BSG 95 mg/dL today; will continue to hold basal today * BSGs yesterday [phone] mg/dL yesterday with tightened novolog parameters, will continue same today * Lunch BSG 165 mg/dL. Inpatient requirements have been significantly different from outpatient pump settings- will monitor 01/18: * Chante received 9 units of insulin on Thursday and 11 units of insulin yesterday, all bolus both days. BSGs have ranged from 98-296 mg/dL. * Diet has been advanced to T2DM, patient tolerated breakfast well. D5W did infuse again yesterday evening causing a dinner high BSG. Fluids now changed to saline. Abx have been de-escalated to Cefazolin. * Fasting BSG remains well controlled this AM at 113 mg/dL. Continue to hold basal insulin. * Novolog will be tightened at lunchtime today. 01/16: * 54 yo F admitted on 01/16/25 secondary to hyponatremia. Pharmacy has been consulted to assist with inpatient glycemic management. Patient is a Type 2 diabetic as an outpatient. Please refer to outpatient regimen and most recent HbA1c above. * Admission BSG was 134 mg/dL in serum and 98 mg/dL on POC. For hyponatremia, patient was on a D5W infusion which caused hyperglycemia (BSGs 311-236-296 mg/dL). Patient was started on Novolog based upon weight/stress of 2 at that time. * Received 9 units of Novolog yesterday while on D5W infusion. Clear liquid diet has been upgraded to full liquid diet today. D5W infusion was stopped yesterday afternoon and has not been resumed. * Fasting BSG this AM was 106 mg/dL. Will continue monitoring patient until diet is upgraded to include solids as well as to see if D5W infusion is resumed. Continue to hold basal insulin and utilize bolus only. PLAN FOR INPATIENT GLYCEMIC CONTROL: * Hold outpatient oral diabetes medications * Basal insulin * None * Bolus insulin * NovoLog per scale ACHS or Q6hrs while NPO * Goal Range: Low 110 mg/dL - High 140 mg/dL * Correction Factor: 30 mg/dL/unit * Nutritional / Prandial insulin per carb ratio of 1 unit per 10 grams CHO consumed
[2025-01-19 13:15] LABS: Hematocrit (blood only) 24.7 % (37.0-47.0); Reticulocyte % 2.58 % (0.50-2.00)
[2025-01-19 13:31] LABS: Anion Gap 5 (3-11); Blood Urea Nitrogen 8 mg/dl (6-23); Calcium 7.3 mg/dl (8.6-10.3); Carbon Dioxide 30 mmol/L (21-32); Chloride 100 mmol/L (98-107); Creatinine Clr Calc Pharmacy 246.5 ml/min; Glucose 191 mg/dl (70-99(Fasting)); Magnesium 2.1 mg/dl (1.7-2.4); Phosphorus 3.2 mg/dl (2.5-4.9); Potassium 4.2 mmol/L (3.5-5.1); Sodium 135 mmol/L (136-145)
[2025-01-19] MEDS: FOLIC ACID 1 MG TAB PO SCH (14:40)
[2025-01-19] MEDS: IRON SUCROSE 200 MG in SODIUM CHLORIDE 0.9% 100 ML IV ONE (14:40)
--- NOTE | 2025-01-19 14:56 | Hospitalist Progress Note ---
Date of Service January 19, 2025 Assessment & Plan (1) Hyponatremia: Plan: 54-year-old female with past medical history significant for muscular dystrophy wheelchair bound, hyperlipidemia,diabetes, history of palpitations, history of kidney stones, anxiety who lives alone at home and has caregivers and mother checks on her comes in because of severe back pain and found to have UTI and hyponatremia. Patient states last she was placed on Perez by her urol ogist because of the hydronephrosis. Last few days she has significant back pain. Was nauseous. Not able to eat much. Denies any fever or chills. No headache, no runny nose or sore throat. No cough. No chest pain or shortness of breath. No abdominal pain. Hemodynamics are okay. Hypoosmolar Hypovolemic Hyponatremia -Admitting Sodium 117, now improving -has had subacute poor satiety and nausea, no vomiting -AM cortisol elevated, TSH wnl Plan: -nephrology consulted, appreciate recs, no FR. -f/u prior drawn cystatin C --wnl -likely being made worse by complicated UTI and now 10mm renal stone -Na improving. Vitamin D deficiency: Low vitamin D level at 16.1, PTH elevated at 110. Continue with home calcium/vitamin D supplement, add further vitamin D supplement at 50 mcg daily. Repeat vitamin D studies in about 3 months. Staph aureus Complicated UTI Indwelling catheter CAUTI -Was on cefepime 01/16 and vanc 01/17 --> UCx reviewed, switch to cefazolin 01/18. 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 -Plan for 7 day antibiotic treatment. Chronic Anemia: Admitting hemoglobin of 11.5. Outpatient chart review 01/19 with hemoglobin varying from 7.6 -13.0. Iron studies with low iron stores, high vitamin B12 level and normal folate. Add folic acid supplement, patient agreeable to IV iron therapy, given IV iron today. Will follow-up with further IV iron. Continue to monitor H&H. Patient denies lightheadedness/palpitation/chest pain/dizziness. FOBT has been negative. No hemolysis noted on labs, CTAP negative for retroperitoneal hematoma. Peripheral blood smear consistent with normocytic normochromic anemia. Back pain -Possible from above -Pain control prn, pt reports better pain mx. c/w bowel regimen. Bilateral hydroureteronephrosis -Recently placed Perez catheter by urology -Uro evalekurt, recommends also gynecology eval (see above) - will need gyne eval as OP, d/w gyenocology 01/18, no inhouse availability of pessary, pt will have to f/u as OP. Diabetes -Sliding scale Hypertension -On lisinopril -We will monitor Hyperlipidemia -On fenofibrate and Lipitor Muscular dystrophy -Wheelchair-bound Admission and Anticipated Discharge Date Admission Date: January 15, 2025 Subjective Patient was seen and examined at bedside. Patient was lying in bed, on room air, NAD, resting comfortably. Patient's aunt at bedside who was also updated plan of care. Patient reports her appetite has been improving, reports no belly pain and no back pain now. Reports feeling better. Moved bowel yesterday. FOBT is neg. Patient denies any lightheadedness or dizziness or chest pain. Pt denies any new complaints. Physical Exam Physical Exam: Gen: A&O 3 NAD, on RA. HEENT: NCAT, EOMI, not icteric. External ears normal. No rhinorrhea. Moist mucous membranes. Neck: Supple, full range of motion, no observable masses, No meningeal sign. Lungs: No Respiratory distress. CV: RRR, tachycardic in 100s. no edema. Abdomen: No CVA tenderness on right, non tender. MSK: No joint swelling, no redness. Skin: No rashes, petechiae, lesions. Normal color per patient. Neuro: noted diffuse weakness Psych: Appropriate for situation. Results & Data Results & Data Vital Signs (Past 12 Hours) Vital Signs Temp Pulse Pulse Resp BP Pulse Ox O2 Del Method 01/19/25 14:03 111 H 01/19/25 11:07 37.2 C 114 H 18 100/68 96 Room Air 01/19/25 07:27 37.6 C H 69 18 100/68 94 Room Air
--- NOTE | 2025-01-19 14:56 | Urology Progress Note ---
Date of Service January 19, 2025 Assessment & Plan (1) Hydronephrosis: (2) UTI (urinary tract infection): Plan Afebrile, normotensive but tachycardic at present Labs reviewed - WBCs 9.27, creatinine stable Urine culture grew staphylococcus aureus Blood cultures prelim no growth x 48 hours Perez draining yellow urine CT imaging reviewed and showing bilateral hydroureteronephrosis that extends to the level of the bladder. Bilateral kidney stones appear stable and do not appear to be causing obstruction. She has a hx of significant prolapse and the concern is that her prolapse may be the primary trackless trolley driver of her bilateral hydronephrosis. It is uncertain that ureteral stent placement would offer much benefit. She may benefit from gynecology or urogynecology evaluation to determine appropriateness of pessary placement/etc. At the present time she is feeling much better and pain is well controlled. Continue supportive care and management per primary team. Continue antibiotic therapy. Maintain Perez catheter. No indication to exchange the catheter at this time. We will arrange outpatient follow-up with our service. Urology will follow peripherally, please call with any question/concerns or changes in patient's status Admission and Anticipated Discharge Date Admission Date: January 15, 2025 Subjective Pt seen at bedside today Awake and resting in bed on arrival No acute distress Family at bedside Perez draining yellow urine Reports she is feeling better overall and her pain is currently well controlled States she is remaining in the hospital for iron transfusion No fevers Review of Systems Constitutional: as per Subjective / HPI Genitourinary: as per Subjective / HPI Physical Exam Constitutional: no acute distress Respiratory: no respiratory distress and no labored breathing Neurologic: awake Psychiatric: Orientation: alert and oriented x 3 Genitourinary: Perez intact Results & Data Vital Signs (Past 12 Hours) Vital Signs Temp Pulse Pulse Resp BP Pulse Ox O2 Del Method 01/19/25 14:03 111 H 01/19/25 11:07 37.2 C 114 H 18 100/68 96 Room Air 01/19/25 07:27 37.6 C H 69 18 100/68 94 Room Air PG Care Time/CCT Total # of Minutes Spent Total Time Spent with Patient: Total time spent is greater than 50% in coordination of care (as documented) at patient's floor/unit and/or counseling patient: Coding Level of Care Code 24585 SUB INP/OBS CARE 2/35MIN Diagnoses Hydronephrosis N13.30 UTI (urinary tract infection) N30.00 Hematuria presence: without hematuria Urinary tract infection type: acute cystitis (2) UTI (urinary tract infection) Hematuria presence: without hematuria Urinary tract infection type: acute cystitis Qualified Code(s): N30.00 - Acute cystitis without hematuria
[2025-01-19] MEDS: HYDROCORTISONE ACETATE 25 MG SUPP PR PRN (15:15)
[2025-01-19] MEDS: CHOLECALCIFEROL 25 MCG (1000 UNITS) TAB PO SCH (16:59)
[2025-01-20 08:09] VITALS: O2SAT 96
[2025-01-20 08:35] LABS: Hematocrit (blood only) 26.1 % (37.0-47.0); Hemoglobin 8.3 g/dl (12.0-16.0); Mean Corpuscular Hgb Conc 31.8 g/dL (32.0-36.0); Mean Corpuscular Volume 91.3 fL (80.0-100.0); Mean Platelet Volume 9.4 fL (9.4-12.4); Platelet Count 285 K/uL (130-400); RDW Coefficient of Variation 14.8 % (11.5-14.5); RDW Standard Deviation 49.6 fL (36.4-46.3); Red Blood Count 2.86 M/uL (4.20-5.40); White Blood Count 8.08 K/ul (4.8-10.8)
[2025-01-20 09:06] LABS: Alanine Aminotransferase 29 U/L (7-52); Albumin Level 2.6 gm/dl (3.4-5.0); Alkaline Phosphatase 57 U/L (34-104); Anion Gap 4 (3-11); Aspartate Aminotransferase 50 U/L (13-39); Bilirubin,Total 0.4 mg/dl (0.2-1.0); Blood Urea Nitrogen 10 mg/dl (6-23); Calcium 7.9 mg/dl (8.6-10.3); Carbon Dioxide 32 mmol/L (21-32); Chloride 99 mmol/L (98-107); Creatinine Clr Calc Pharmacy 247.5 ml/min; Globulin 2.7 gm/dl (2.5-4.0); Glucose 97 mg/dl (70-99(Fasting)); Magnesium 1.7 mg/dl (1.7-2.4); Phosphorus 2.7 mg/dl (2.5-4.9); Potassium 3.7 mmol/L (3.5-5.1); Sodium 135 mmol/L (136-145); Total Protein 5.3 gm/dl (6.0-8.3)
[2025-01-20] MEDS: CALCITRIOL 0.25 MCG CAPSULE PO SCH (09:06)
--- NOTE | 2025-01-20 10:13 | Nephrology Progress Note ---
Date of Service January 20, 2025 Assessment & Plan (1) Refeeding syndrome: Plan: concern for this since as her appetite/po intake has rebounded phos has dropped consistently; if present, it's mild so far though still serious phos <1 5/1am despite aggressive repletion yesterday; phos at 2.7 today; mag 1.7 >> no e/o HF or respiratory failure; no e/o neurologic changes (seizure/delirium); CXR neg for HF process; paraproteinemia labs (unlikely) pending -cont thiamine 100 mg daily IV x 3 days -ordered studies to evaluate GI versus renal phos losses 5/1>> these unfortunately take about a week to complete but may be helpful at follow up visits NEPHRO D/C RECS Hypovolemic hyponatremia complicated by mild refeeding syndrome, now resolved d/c meds: -hold oxybutynin at d/c; defer to primary re allergy medication -Neutraphos 1 tab bid -calcitriol 0.25 mcg daily -D3 50 mcg daily -d/c lisinopril other care items: -no fluid limit -aim for 65 gm daily protein intake > suggest 3-4 day food log; may need slack line yarder assistance to review log -PCP to check bmp, phos, mag about weekly after d/c x 2 f/u appt: -hospital d/c appt w/ me in 2-3 wks w/ neph nurse to order bmp, serum/urine osms, urine lytes, ACR, UACM, phos, mag, PTH Care coordinated w/ Dr Fu re dietary aims, f/u labs/meds by TText along w/ med changes; we are in agreement. (2) Hyponatremia: Plan: hypotonic hypovolemic hyponatremia based on response to resuscitation after 1.5 L on admission. Presented w/ severe hyponatremia at 117 at 1930 and corrected to 125 12 hrs later; aggressive D5W lowered Na back to 116 w/ some low K. This AM sNa to 135, appropriate rate of correction. this AM 124 w/ K 4.5 Glucocorticoid deficiency excluded by elevated AM cortisol 35; TSH wnl target Na is wnl tomorrow AM. Complicated by patient intolerance to most solid food though her appetite is improving -control pain but avoid nsaids - no FR for now - allergy med on hold; will also cont to hold oxybutynin Follow-up pending urine and blood cultures > urine growing Staph; on vanco - maintain eukalemia >> K removed from IVF last evening - aiming for 1 g/kg protein intake daily both here and at home; consider trial of milkshake with protein powder or similar - hoping this will be workable in house; KATHY assistance appreciated Admission and Anticipated Discharge Date Admission Date: January 15, 2025 Subjective no interval events. pain controlled; tolerating po. no n/v/dry heaves. no sob. Review of Systems 2 Review of Systems: All systems reviewed & are unremarkable except as noted in Subjective Physical Exam 2 Constitutional: well developed, well nourished, + frail appearing and cooperative; no acute distress Eyes: EOM intact bilaterally ENMT: Mouth: + dry oral mucous membranes Neck: no nuchal rigidity Respiratory: normal respiratory effort Auscultation: + diminished lung sounds Cardiovascular: Rate/Rhythm: + tachycardic Extremities: no edema Gastrointestinal (Abdomen): Inspection/Auscultation: normal bowel sounds P ercussion/Palpation: abdomen soft; abdomen nontender Skin: no rashes, warm and dry Psychiatric: Orientation: alert and oriented x 3 Results & Data Vital Signs (Past 12 Hours) Vital Signs Temp Pulse Pulse Pulse Resp BP Pulse Ox 01/20/25 08:08 36.9 C 102 H 12 108/65 96 01/20/25 03:31 36.3 C L 101 H 15 106/66 97 01/20/25 00:05 37.4 C 101 H 20 103/68 94 01/19/25 22:40 103 H O2 Del Method 01/20/25 08:08 Room Air 01/20/25 03:31 Room Air 01/20/25 00:05 Room Air 01/19/25 22:40 Laboratory Results 01/20/25 08:19 01/20/25 08:19
[2025-01-20] MEDS: IRON SUCROSE 400 MG in SODIUM CHLORIDE 0.9% 250 ML IV ONE (11:09)
[2025-01-20] MEDS: MAGNESIUM SULFATE / D5W 1 GM/100 ML BAG IV ONE (11:09)
[2025-01-20 12:12] VITALS: RESP 20; TEMP 98.8
--- NOTE | 2025-01-20 12:36 | Pharmacy Report ---
Pharmacy Glycemic Short Note 2 - Date of Service January 20, 2025 - Glycemic Short BSG Results (Last 24 hours): 01/19/25 01/19/25 01/19/25 12:43 16:28 20:56 Glucose 191 H POC Glucose 181 H 168 H 01/20/25 01/20/25 01/20/25 07:36 08:19 11:19 Glucose 97 POC Glucose 99 126 H OUTPATIENT ANTIDIABETIC REGIMEN: * Januvia 100 mg PO daily * Omnipod Insulin Pump + G7; TDD ~116 units (62 units basal)- see micro photographer note for further parameters HbA1c: * 5.7% (01/16/25) ASSESSMENT: 01/20: * Patient received 22 units of insulin yesterday, all bolus. BSGs were [phone] mg/dL. * Fasting BSG 99 mg/dL this AM which is well controlled. Continue to hold bolus insulin. * Postprandials increasing throughout the day so will tighten Novolog today at lunchtime. 01/19: * Fasting BSG 95 mg/dL today; will continue to hold basal today * BSGs yesterday [phone] mg/dL yesterday with tightened novolog parameters, will continue same today * Lunch BSG 165 mg/dL. Inpatient requirements have been significantly different from outpatient pump settings- will monitor 01/18: * Chante received 9 units of insulin on Thursday and 11 units of insulin yester y, all bolus both days. BSGs have ranged from 98-296 mg/dL. * Diet has been advanced to T2DM, patient tolerated breakfast well. D5W did infuse again yesterday evening causing a dinner high BSG. Fluids now changed to saline. Abx have been de-escalated to Cefazolin. * Fasting BSG remains well controlled this AM at 113 mg/dL. Continue to hold basal insulin. * Novolog will be tightened at lunchtime today. 01/16: * 54 yo F admitted on 01/16/25 secondary to hyponatremia. Pharmacy has been consulted to assist with inpatient glycemic management. Patient is a Type 2 diabetic as an outpatient. Please refer to outpatient regimen and most recent HbA1c above. * Admission BSG was 134 mg/dL in serum and 98 mg/dL on POC. For hyponatremia, patient was on a D5W infusion which caused hyperglycemia (BSGs 311-236-296 mg/dL). Patient was started on Novolog based upon weight/stress of 2 at that time. * Received 9 units of Novolog yesterday while on D5W infusion. Clear liquid diet has been upgraded to full liquid diet today. D5W infusion was stopped yesterday afternoon and has not been resumed. * Fasting BSG this AM was 106 mg/dL. Will continue monitoring patient until diet is upgraded to include solids as well as to see if D5W infusion is resumed. Continue to hold basal insulin and utilize bolus only. PLAN FOR INPATIENT GLYCEMIC CONTROL: * Hold outpatient oral diabetes medications * Basal insulin * None * Bolus insulin * NovoLog per scale ACHS or Q6hrs while NPO * Goal Range: Low 110 mg/dL - High 140 mg/dL * Correction Factor: 25 mg/dL/unit * Nutritional / Prandial insulin per carb ratio of 1 unit per 8 grams CHO consumed
--- NOTE | 2025-01-20 12:42 | Discharge Summary ---
Date of Service January 20, 2025 Admission HPI Per Admitting Provider 54-year-old female with past medical history significant for muscular dystrophy wheelchair bound, hyperlipidemia,diabetes, history of palpitations, history of kidney stones, anxiety who lives alone at home and has caregivers and mother checks on her comes in because of severe back pain and found to have UTI and hyponatremia. Patient states last she was placed on Perez by her urologist because of the hydronephrosis. Last few days she has significant back pain. Was nauseous. Not able to eat much. Denies any fever or chills. No headache, no runny nose or sore throat. No cough. No chest pain or shortness of breath. No abdominal pain. Hemodynamics are okay. Past medical history. As mentioned above Past surgical history. Colonoscopy. Fragment kidney stone by shockwave. Deep muscle biopsy for diagnosis of spinal muscular dystrophy 1972 or . Spinal fusion 1984. Upper GI endoscopy. Social history. No smoking. Alcohol socially. No drug use. Family history. Father had bladder cancer. Heart disorder. Hypertension. Mother had heart disorder. Hypertension. Paternal aunt had breast cancer. Brother has hypertension. Admission Exam Per Admitting Provider General- Not in distress Head- atraumatic Eyes- PERRL. ENT- oropharynx clear Neck- supple, no JVD. Lungs- clear to auscultation no wheezing or crackles Heart- regular rhythm; no murmur, no gallop. Abdomen- normal bowel sounds, soft, nontender, no distension Extremities- mild pretibial edema, no erythema seen. Neuro- alert, oriented PERRL, no facial palsy; no dysarthria. Principal Diagnosis Hypoosmolar hypovolemic hyponatremia Vitamin D deficiency Staff aureus catheter associated UTI Indwelling catheter Chronic anemia likely iron deficiency anemia Back pain Bilateral hydroureteronephrosis likely iso history of significant pelvic prolapse Discharge Exam Gen: A&O 3 NAD, on RA. HEENT: NCAT, EOMI, not icteric. External ears normal. No rhinorrhea. Moist mucous membranes. Neck: Supple, full range of motion, no observable masses, No meningeal sign. Lungs: No Respiratory distress. CV: RRR, tachycardic in 100s. no edema. Abdomen: No CVA tenderness on right, non tender. MSK: No joint swelling, no redness. Skin: No rashes, petechiae, lesions. Normal color per patient. Neuro: noted diffuse weakness Psych: Appropriate for situation. Discharge Data Allergies Allergy/AdvReac Type Severity Reaction Status Date / Time Sulfa (Sulfonamide Allergy Intermediate ITCHY Verified 01/28/24 13:24 Antibiotics) RASH, FLU-LIKE SYMPTOMS amoxicillin [From Augmentin] Allergy Rash Verified 01/28/24 13:24 clavulanic acid Allergy Rash Verified 01/28/24 13:24 [From Augmentin] metformin AdvReac Intermediate MODERATELY Verified 01/28/24 13:24 SEVERE NAUSEA Consultations 01/15/25 21:18 ED Decision to Admit Stat 01/16/25 08:00 Consult Nephrology Routine Consult Urology Routine Ordered Studies 01/15/25 18:54 CT abd pelvis wo con Stat 01/17/25 10:25 CT abdomen pelvis wo/w con Urgent Hospital Course (1) Hyponatremia: 54-year-old female with past medical history significant for muscular dystrophy wheelchair bound, hyperlipidemia,diabetes, history of palpitations, history of kidney stones, anxiety who lives alone at home and has caregivers and mother checks on her comes in because of severe back pain and found to have UTI and hyponatremia. Patient states last she was placed on Perez by her urologist because of the hydronephrosis. Last few days she has significant back pain. Was nauseous. Not able to eat much. Denies any fever or chills. No headache, no runny nose or sore throat. No cough. No chest pain or shortness of breath. No abdominal pain. Hemodynamics are okay. She was managed for the following: Hypoosmolar Hypovolemic Hyponatremia -Admitting Sodium 117, now improving -has had subacute poor satiety and nausea, no vomiting -AM cortisol elevated, TSH wnl Plan: -nephrology consulted, appreciate recs, no FR. -f/u prior drawn cystatin C --wnl -likely being made worse by complicated UTI and now 10mm renal stone -Na improved Vitamin D deficiency: Low vitamin D level at 16.1, PTH elevated at 110. Continue with home calcium/vitamin D supplement, c/w vitamin D supplement. Repeat vitamin D studies in about 3 months. Staph aureus Complicated UTI Indwelling catheter CAUTI -Was on cefepime 01/16 and vanc 01/17 --> UCx reviewed, switch to cefazolin 01/18. Will put her on cefuroxime on discharge to complete 10-day course. -Uro on board, no plan for ac intervention, concern prolapse is likely jinrikisha driver of her b/l hydronephrosis, and recommends gynecology or gynecourology eval -Uro evaled - no indication for exchange of catheter at this time, f/u w/ uro on dc. -Plan for 10 day antibiotic treatment. Chronic Anemia: Admitting hemoglobin of 11.5. Outpatient chart review 01/19 with hemoglobin varying from 7.6 -13.0. Iron studies with low iron stores, high vitamin B12 level and normal folate. Add folic acid supplement, patient agreeable to IV iron therapy, given IV iron today. Will follow-up with further IV iron. Continue to monitor H&H. Patient denies lightheadedness/palpitation/chest pain/dizziness. FOBT has been negative. No hemolysis noted on labs, CTAP negative for retroperitoneal hematoma. Peripheral blood smear consistent with normocytic normochromic anemia. Hemoglobin stable/slightly better today at 8.3. Back pain -Possible from above -Pain control prn, pt reports better pain mx. c/w bowel regimen. Bilateral hydroureteronephrosis -Recently placed Perez catheter by urology -Uro evalekurt, recommends also gynecology eval (see above) - will need gyne eval as OP, d/w gyenocology 01/18, no inhouse availability of pessary, pt will have to f/u as OP. Diabetes -Sliding scale Hypertension -On lisinopril -We will monitor Hyperlipidemia -On fenofibrate and Lipitor Muscular dystrophy -Wheelchair-bound Patient is being discharged home with family support/care with following instructions at the point of discharge: Follow-up with your primary care physician within a week time and likely you will need labs CBC/CMP/magnesium/phosphorus. You will be discharged on antibiotic to complete the course for UTI. Follow-up with urology and gynecourology as an outpatient given history of bilateral hydronephrosis and pelvic prolapse. For history of chronic anemia, likely secondary to iron deficiency. You received IV iron while in hospital. Continue to take your iron tablet at home, follow-up with iron studies/vitamin B12 and folic acid levels in about 3 months time, coordinate with your PCP office to set up the tests. You will likely benefit from colonoscopy, coordinate with your PCP office to set up the referral. You are also noted to have vitamin D deficiency and elevated parathyroid hormone, you will be discharged on vitamin D supplements. Repeat vitamin D leve l and PTH level in about 3 months time, coordinate with your PCP office to set up the test. You are also evaluated by nephrology for low sodium levels, follow-up with nephrology in 2 to 3 weeks time upon discharge. Your oxybutynin is held upon discharge, your lisinopril has been discontinued. Increase protein content in diet. Take your medications as prescribed. Please make sure that you are able to get your medications today by calling your pharmacy before you leave the hospital so that your treatment continuity is not broken. Home Health Attestation I certify that this patient is under my care and that I, or a physicians assistant facility manager working with me, had a face to-face encounter that meets the home health clru-yn-zcnk encounter requirements with this patient. The encounter with the patient was in whole, or in part, for the following medical condition, which is the primary reason for home health care (list medical condition): I certify that, based on my findings, the following services are medically necessary home health services: My clinical findings support the need for the above services because: Further, I certify that my clinical findings support that this patient is homebound (i.e. absences from home require considerable and taxing effort and are for medical reasons or yarsanism services or infrequently or of short duration when for other reasons) because: Certification for Home Health Services: Based on the above findings, I certify that this patient is confined to the home and needs intermittent custodial care, physical therapy and/or speech therapy or continues to need occupational therapy. The patient is under my care, and I have initiated the establishment of the plan of care. This patient will be followed by a physician who will periodically review the plan of care. Total Time Total Time Spent Total Time Spent (In Minutes): 35 Discharge Plan Discharge Items Patient Disposition: Home - Home Health Services Reason For Visit: HYPONATREMIA, ACUTE UTI Discharge Diagnosis: Hypoosmolar hypovolemic hyponatremia Vitamin D deficiency Staff aureus catheter associated UTI Indwelling catheter Chronic anemia likely iron deficiency anemia Back pain Bilateral hydroureteronephrosis likely iso history of significant pelvic prolapse Activity: Resume your previous activity Non-emergency contact: Primary Care Provider Call non-emergency contact if: you have any medication questions and your symptoms worsen Follow-up/Referrals: Anayeli Tran MD [Primary Care Provider] - Diet: Carb Consistent or DM2 Addtl Attending Provider Instructions: Follow-up with your primary care physician within a week time and likely you will need labs CBC/CMP/magnesium/phosphorus. You will be discharged on antibiotic to complete the course for UTI. Follow-up with urology and gynecourology as an outpatient given history of bilateral hydronephrosis and pelvic prolapse. For history of chronic anemia, likely secondary to iron deficiency. You received IV iron while in hospital. Continue to take your iron tablet at home, follow-up with iron studies/vitamin B12 and folic acid levels in about 3 months time, coordinate with your PCP office to set up the tests. You will likely benefit from colonoscopy, coordinate with your PCP office to set up the referral. You are also noted to have vitamin D deficiency and elevated parathyroid hormone, you will be discharged on vitamin D supplements. Repeat vitamin D level and PTH level in about 3 months time, coordinate with your PCP office to set up the test. You are also evaluated by nephrology for low sodium levels, follow-up with nephrology in 2 to 3 weeks time upon discharge. Your oxybutynin is held upon discharge, your lisinopril has been discontinued. Increase protein content in diet. Take your medications as prescribed. Please make sure that you are able to get your medications today by calling your pharmacy before you leave the hospital so that your treatment continuity is not broken. Pending Studies at Discharge: Yes Stand-Alone Forms: [facility] [employer], Smoking Cessation Medications and DC Order Prescriptions: New calcitriol 0.25 mcg Capsule 0.25 mcg PO QAM Qty: 30 0RF cholecalciferol (vitamin D3) 25 mcg (1,000 unit) Capsule 50 mcg PO QAM Qty: 30 0RF folic acid 1 mg Tablet 1 mg PO QAM Qty: 30 0RF Cerovite Senior 0.4 mg-300 mcg- 250 mcg Tablet 1 tab PO QAM Qty: 30 0RF cefuroxime axetil 500 mg tablet 500 mg PO BID 6 Days Qty: 12 0RF Probiotic 3 billion cell capsule 3,000 mmu cells PO DAILY 7 Days Qty: 7 0RF Rx Instructions: administer with a meal Continued atorvastatin 40 mg Tablet 40 mg PO DAILY amitriptyline 10 mg Tablet 30 mg PO HS fluticasone propionate [Flonase] 50 mcg/actuation [place],Suspension 2 spray INTRANASAL DAILY Rx Instructions: administer into each nostril fenofibrate 160 mg Tablet 160 mg PO DAILY Januvia 100 mg Tablet 100 mg PO DAILY calcium carbonate-vitamin D3 500 mg-3.125 mcg (125 unit) Tablet 1 tab PO DAILY omega 6-ydm-rib-fish oil [Fish Oil] 1,000 (120-180) mg Capsule 1 cap PO DAILY Benefiber Clear SF (dextrin) 3 gram/3.5 gram Powder In Packet 1 packet PO DAILY Rx Instructions: mix into at least 4 oz water or juice before administering polyethylene glycol 3350 [Miralax] 17 gram Powder In Packet 17 g PO DAILY diphenoxylate-atropine [Lomotil] 2.5-0.025 mg Tablet 1 tab PO QID PRN (Reason: dairrhea) Vitron-C 65 mg iron- 125 mg Tablet,Delayed Release (Dr/Ec) 1 tab PO BID Discontinued cetirizine 10 mg Tablet 10 mg PO DAILY lisinopril 5 mg Tablet 5 mg PO DAILY dicyclomine 10 mg Capsule 10 mg PO ACHS PRN (Reason: Abdominal Pain) solifenacin [Vesicare] 10 mg Tablet 10 mg PO DAILY Discharge Orders: Discharge Order (Routine); Ordered 01/20/25 Ordered By: Vlad Montenegro/Other Patient Handouts: Managing Type 2 Diabetes Admission Data Admit Date/Time: 01/15/25 23:43 Attending Provider: Vlad Fu Admit Provider: Angelo Garland Primary Care Provider: Anayeli Tran Other Providers: Angelo Garland; Zoya Olivares; Gilberto Reyes; Alisson Ortiz; Maksim Mcgowan; Arcelia Kim; Berta Kemp; Kevin Lobo; Parisa Campbell; Heath Mooney; Sergio Mohan
[2025-01-20 12:49] VITALS: BP 88/56; PULSE 101
== END 2025-01-20 14:30 | disposition home or self-care (01) | DRG 699 ==
LOC: ED 18:43 → SUATTDRO 23:43 → 2E 23:43